=== PATIENT | female | born 1945 | race Caucasian/White ===

== ENCOUNTER 2018-05-11 02:20 | Inpatient (IN) | payer MEDICARE, OTHER ==
[~2018-05-11] VITALS: Ht 170.2 cm; Wt 54.6 kg
[2018-05-11 03:58] VITALS: BP 162/85
[2018-05-11] MEDS ORDERED: ACETAMINOPHEN 325 MG TABLET PO PRN (04:15)
[2018-05-11] MEDS ORDERED: MAG HYDROX/AL HYDROX/SIMETH 30 ML ORAL.SUSP PO PRN (04:15)
[2018-05-11] MEDS ORDERED: METHYL SALICYLATE/MENTHOL TOPICAL OINTMENT 29GM TUBE. TP PRN (04:15)
[2018-05-11] MEDS ORDERED: MAGNESIUM HYDROXIDE 2,400 MG/30 ML ORAL.SUSP. PO PRN (04:15)
[2018-05-11] MEDS ORDERED: ONDA4TAB7 PO (04:32)
[2018-05-11] MEDS ORDERED: LOPE2CAP88 PO (04:32)
[2018-05-11] MEDS ORDERED: ACET325T9 PO (04:32)
[2018-05-11] MEDS ORDERED: LACT1CAP24 PO (04:32)
[2018-05-11] MEDS ORDERED: DICY20TA3 PO (04:32)
[2018-05-11] MEDS ORDERED: FLUT12HF2 IH (04:32)
[2018-05-11] MEDS ORDERED: CALC625T PO (04:32)
[2018-05-11] MEDS ORDERED: MEMA21CA PO (04:32)
[2018-05-11] MEDS ORDERED: POTA20TA4 PO (04:32)
[2018-05-11] MEDS ORDERED: OMEP20CA9 PO (04:32)
[2018-05-11] MEDS ORDERED: GABA-585 PO (04:32)
[2018-05-11] MEDS ORDERED: HYDR26CR PR (04:32)
[2018-05-11] MEDS ORDERED: AMLO5TAB2 PO (04:32)
--- NOTE | 2018-05-11 05:59 | EKG ---
[address] [address] Test Date: 2018-05-11 Test Time: 05:55:17 Pat Name: MALKA POPE Department: Room: [address] [place] [address] Gender: F Quantitative Manager: LOGAN : 1945 Requested By: RHODA ORTA Order Number: [id number] Reading MD: Shawn Velásquez MD Measurements Intervals [place] Rate: 88 P: 90 FL: 166 QRS: -39 QRSD: 84 T: 70 QT: 358 QTc: 437 Interpretive Statements SINUS RHYTHM ABNORMAL LEFT AXIS DEVIATION PROBABLE SEPTAL INFARCT Electronically Signed On 05-13-2018 13:04:44 CDT by Shawn Velásquez MD
[2018-05-11] MEDS ORDERED: LOPERAMIDE 2 MG CAPSULE PO PRN (07:30)
[2018-05-11] MEDS ORDERED: HYDROCORTISONE 2.5% RECTAL CREAM 30GM TUBE. RC PRN (07:30)
[2018-05-11] MEDS ORDERED: ONDANSETRON ODT 4 MG TAB.RAPDIS PO PRN (07:30)
[2018-05-11 07:42] LABS: BASO % 0 % (0-3); EOS # 0.2 x10^3/uL (0.0-0.7); EOS % 3 % (0-3); HEMATOCRIT 38.5 % (36.0-47.0); HEMOGLOBIN 12.7 g/dL (12.0-15.5); LYMPH # 0.7 x10^3/uL (1.0-4.8); LYMPH % 12 % (24-48); MEAN CORPUSCULAR HEMOGLOBIN 29 pg (25-35); MEAN CORPUSCULAR HGB CONC 33 g/dL (31-37); MEAN CORPUSCULAR VOLUME 87 fL (79-100); MONO # 0.4 x10^3/uL (0.0-1.1); MONO % 7 % (0-9); NEUT % 79 % (31-73); PLATELET COUNT 192 x10^3/uL (140-400); RED BLOOD COUNT 4.41 x10^6/uL (3.50-5.40); RED CELL DISTRIBUTION WIDTH 16.1 % (11.5-14.5); WHITE BLOOD COUNT 6.3 x10^3/uL (4.0-11.0)
[2018-05-11] MEDS: DICYCLOMINE HCL 20 MG TABLET PO SCH ×4 (07:48→20:04)
[2018-05-11] MEDS: LACTOBACILLUS RHAMNOSUS GG 1 CAPSULE. PO SCH ×2 (07:48→20:04)
[2018-05-11] MEDS: GABAPENTIN 100 MG CAPSULE. PO SCH ×3 (07:49→20:04)
[2018-05-11] MEDS: PANTOPRAZOLE 40 MG TABLET. PO SCH (07:49)
[2018-05-11] MEDS: amLODIPine BESYLATE 5 MG TABLET PO SCH (07:49)
[2018-05-11] MEDS: POTASSIUM CHLORIDE 20 MEQ TABLET.ER. PO SCH ×2 (07:50→16:34)
[2018-05-11] MEDS: MEMANTINE 5 MG TABLET. PO SCH ×3 (07:51→20:04)
[2018-05-11] MEDS: ALBUTEROL SULFATE 2.5 MG/3 ML NEBU. NEB SCH ×4 (08:00→20:08)
[2018-05-11] MEDS ORDERED: ACETAMINOPHEN 325 MG TABLET PO SCH (08:00)
[2018-05-11 08:22] LABS: ALBUMIN 3.2 g/dL (3.4-5.0); ALBUMIN/GLOBULIN RATIO 0.8 (1.0-1.7); CALCIUM 9.1 mg/dL (8.5-10.1); CREATININE 0.6 mg/dL (0.6-1.0); GFR 97.5; POTASSIUM 3.7 mmol/L (3.5-5.1); TOTAL BILIRUBIN 0.9 mg/dL (0.2-1.0); TOTAL PROTEIN 7.1 g/dL (6.4-8.2)
[2018-05-11] MEDS ORDERED: SALMETEROL IH SCH (09:00)
[2018-05-11] MEDS ORDERED: FLUTICASONE IH SCH (09:00)
[2018-05-11] MEDS: BUDESONIDE 0.5 MG/2 ML NEBU NEB SCH ×2 (10:40→20:08)
[2018-05-11 11:17] LABS: THYROID STIM HORMONE (TSH) 1.827 uIU/mL (0.358-3.740)
[2018-05-11 13:09] LABS: BACTERIA,URINE FEW /HPF (0-FEW); BILIRUBIN,URINE NEG (NEG); CLARITY,URINE CLOUDY; COLOR,URINE YELLOW; GLUCOSE,URINE NEG (NEG); NITRITE,URINE NEG (NEG); SQUAMOUS EPITHELIAL CELL,UR FEW /LPF; UROBILINOGEN,URINE 1 mg/dL (0.2 mg/dL); WBC,URINE >40 /HPF (0-4)
[2018-05-11 14:07] LABS: HEMOGLOBIN A1C 5.1 % (4.8-5.6); THYROXINE 8.5 ug/dL (4.5-12.0)
--- NOTE | 2018-05-11 14:37 | CONS ---
DATE OF CONSULTATION: 05/11/2018 REASON FOR CONSULTATION: Medical management. HISTORY OF PRESENT ILLNESS: The patient is a 73-year-old female patient, resident at [facility], who apparently was evaluated in the Emergency Room of [facility] on account of yelling and threatening, has suicidal ideation and thinks she is a prostitute. Had a trial of Xanax done for the last 15 days, did not work. She required one-on-one sitter and was basically admitted [facility] for inpatient psychiatric stabilization. She was treated actually for pneumonia and UTI recently. PAST MEDICAL HISTORY: Significant for irritable bowel syndrome, hypertension. She has postpolio syndrome with right-sided hemiplegia, marked muscle wasting and atrophy. She is also known to have COPD. PAST SURGICAL HISTORY: Significant for plastic surgery to her right lower extremity which was shorter because of polio and she has also total abdominal hysterectomy and bilateral salpingo-oophorectomy. ALLERGIES: She has no known drug allergies. MEDICATIONS: She is currently on following medications: She is on dicyclomine 20 mg 4 times a day, amlodipine 5 mg once a day, Tylenol 650 mg every 4 hours, gabapentin 200 mg 3 times a day, Namenda XR 21 mg daily, potassium chloride 20 mEq twice a day, Advair Diskus twice a day, lactobacillus acidophilus 1 tablet twice a day, loperamide 2 mg every 4 hours as needed, calcium polycarbophil for FiberCon 625 mg at bedtime, ondansetron for Zofran 4 mg every 6 hours, omeprazole 20 mg daily, hydrocortisone cream Preparation H applied topically 4 times a day for hemorrhoids. FAMILY HISTORY: Unremarkable. SOCIAL HISTORY: She is , has 1 son. She quit smoking about a year ago. She smoked a pack a day. Does not drink alcohol or use any recreational drugs. PHYSICAL EXAMINATION: GENERAL: When I examined her, she looked pale, cachectic, but no jaundice, cyanosis, or thyromegaly. No jugular venous distension. No lower limb edema. VITAL SIGNS: Her heart rate was 84, blood pressure was 162/85, temperature was 97.7, respiratory rate was 18, and oxygen saturation was 97% on 1 liter of oxygen. HEAD, EYES, EARS, NOSE, AND THROAT: Showed normocephalic, atraumatic. NECK: Supple. HEART: Showed normal first and second heart sounds with no gallop, rub, or murmur. CHEST: Clear to auscultation. No crepitation or rhonchi. ABDOMEN: Mildly distended, soft, nontender. No guarding or rigidity. No organomegaly. All hernial orifices intact. Bowel sounds normal. NEUROLOGIC: She is awake, alert, responding appropriately. Her cranial nerves are intact. She moves upper extremities to much good extent than lower extremities. She is mostly wheelchair bound. LABORATORY DATA: Her lab work shows a white cell count of 6300, hemoglobin 13, hematocrit 39, MCV 87, and platelet count of 192,000. His serum sodium was 143, potassium 3.7, chloride 105, bicarbonate 34, anion gap of 4, BUN 15, creatinine 0.6, estimated GFR was 97 mL per minute. His glucose was 91, calcium was 9.1, magnesium 2. Her serum iron was 78, TIBC was 296. Iron percent saturation was 26. Total bilirubin, AST, ALT, alkaline phosphatase are normal. Total protein 7.3, albumin 3.1. Her triglycerides were 78, total cholesterol was 186, LDL was 109, VLDL was 15, and HDL cholesterol was 62, the ratio was 3 and her TSH was 1.827. IMPRESSION: In summary, this is a 73-year-old female patient who was [facility] on account of yelling, threatening, having suicidal ideation, thinks that she is a prostitute. She has failed outpatient psychiatric treatment and she required one-on-one sitter there. So she was admitted for inpatient psychiatric stabilization. Her past medical history is significant for irritable bowel syndrome, hypertension, postpolio syndrome with right-sided muscle weakness and wasting. She has also had COPD and she is oxygen dependent. Medically, the patient seems to be generally stable. All her vital signs are within acceptable range and all her labs are also within normal range. I will continue all this medication. I will follow all her other labs that are still pending at the time of this dictation and make any necessary recommendation. Thank you, Dr. Encarnacion, for allowing me to participate in the care of this patient. BLUE MYRICK MD DR: LUCI/vanessa JOB#: [id number] / [id number]
[2018-05-11 16:08] VITALS: BP 131/82
--- NOTE | 2018-05-11 19:17 | HP ---
ADMIT DATE: 05/11/2018 This note covers the elements not covered in my initial note, 05/11/2018. She is referred by her primary care physician is Dr. Conner Taylor at the skilled nursing. IDENTIFYING DATA: The patient is admitted voluntarily by her legal guardian, Millie Moya. The patient is a 73-year-old female referred to us from [facility] Emergency Room where she presented from [facility] on account of worsening symptoms of depression with suicidal ideation and plan about slitting her wrists. She was also wanting someone to bash her head in. She was yelling, psychotic, extremely confused. She believes she is a prostitute and has been refusing to go to bed. CHIEF COMPLAINT: "I have been here 1 week. There is nothing wrong with me." HISTORY OF PRESENT ILLNESS: The patient has a history of dementia, Alzheimer's vascular type. She has been residing at [facility] for some time, but over the past several days, she has been increasingly agitated, yelling, threatening, suicidal and quite psychotic. She has had sleep and appetite changes. No active homicidal ideation. No clear history of bipolar disorder. PAST PSYCHIATRIC HISTORY: Positive for progressive memory deficits, mood swings, psychotic symptoms. PAST MEDICAL HISTORY: Hypertension, abdominal aortic aneurysm, hemiplegia, status post polio, peripheral vascular disease, SIADH, COPD, generalized anxiety disorder, muscle wasting and atrophy, GERD. ACCU-CHEKS: None. DIET: Regular. Takes medications whole, ambulates wheelchair. DRUG ALLERGIES: Negative. CODE STATUS: Full code. CURRENT PSYCHOTROPICS: Namenda XR 21 mg daily, Zyprexa p.r.n. FAMILY HISTORY: Noncontributory. SOCIAL HISTORY: No history of alcohol, drug abuse, physical, sexual or elder abuse. She is not known to be a perpetrator. 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 MENTAL STATUS EXAMINATION: Insight, judgment, recent and remote memory, attention, concentration, fund of knowledge poor, consistent with her diagnosis. REACTION TO HOSPITALIZATION: The patient accepting of it. ASSETS: Supportive living at the skilled nursing, supportive guardian. 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 PLAN: Admit to geropsychiatry unit at [facility]. I will see the patient daily individually from a psychiatric standpoint, medical followup per Dr. Armas/Dr. Dennis. We will go ahead and add trazodone 50 mg at bedtime as needed for insomnia, Zoloft 25 mg a day. Observe baseline, change Namenda to 10 mg twice a day. Make further adjustments post-baseline assessment. MAN Lyla ORTA MD DR: WARREN/vanessa JOB#: [id number] / [id number]
[2018-05-11] MEDS: CALCIUM POLYCARBOPHIL 625 MG TABLET PO SCH (20:06)
[2018-05-11] MEDS: ACETAMINOPHEN 325 MG TABLET PO PRN (21:30)
--- NOTE | 2018-05-11 22:24 | PDOC ---
Exam Note: Aidan Note: Please also refer to the separate dictated note~for this date of service dictated separately.~Patient seen individually. Discussed the patient with Nursing staff reviewed the chart.~Reviewed interim history and current functioning. Reviewed vital signs,~Labs/ Radiology~and current medications noted below. Continue current treatment with the changes noted in the dictated addendum note Assessment: Vital Signs: Vital Signs Date Time Temp Pulse Resp B/P (MAP) Pulse Ox O2 Delivery O2 Flow Rate FiO2 05/11/18 20:14 99 Nasal Cannula 2.0 05/11/18 16:08 97.3 95 18 131/82 (98) I&O Intake and Output 05/11/18 06:59 # Voids 1 Labs: Laboratory Tests Test 05/11/18 07:00 05/11/18 12:50 White Blood Count 6.3 x10^3/uL (4.0-11.0) Red Blood Count 4.41 x10^6/uL (3.50-5.40) Hemoglobin 12.7 g/dL (12.0-15.5) Hematocrit 38.5 % (36.0-47.0) Mean Corpuscular Volume 87 fL (79-100) Mean Corpuscular Hemoglobin 29 pg (25-35) Mean Corpuscular Hemoglobin Concent 33 g/dL (31-37) Red Cell Distribution Width 16.1 % (11.5-14.5) H Platelet Count 192 x10^3/uL (140-400) Neutrophils (%) (Auto) 79 % (31-73) H Lymphocytes (%) (Auto) 12 % (24-48) L Monocytes (%) (Auto) 7 % (0-9) Eosinophils (%) (Auto) 3 % (0-3) Basophils (%) (Auto) 0 % (0-3) Neutrophils # (Auto) 5.0 x10^3uL (1.8-7.7) Lymphocytes # (Auto) 0.7 x10^3/uL (1.0-4.8) L Monocytes # (Auto) 0.4 x10^3/uL (0.0-1.1) Eosinophils # (Auto) 0.2 x10^3/uL (0.0-0.7) Basophils # (Auto) 0.0 x10^3/uL (0.0-0.2) Sodium Level 143 mmol/L (136-145) Potassium Level 3.7 mmol/L (3.5-5.1) Chloride Level 105 mmol/L (98-107) Carbon Dioxide Level 34 mmol/L (21-32) H Anion Gap 4 (6-14) L Blood Urea Nitrogen 15 mg/dL (7-20) Creatinine 0.6 mg/dL (0.6-1.0) Estimated GFR (Cockcroft-Gault) 97.5 BUN/Creatinine Ratio 25 (6-20) H Glucose Level 91 mg/dL (70-99) Hemoglobin A1c 5.1 % (4.8-5.6) Calcium Level 9.1 mg/dL (8.5-10.1) Magnesium Level 2.0 mg/dL (1.8-2.4) Iron Level 78 ug/dL (50-170) Total Iron Binding Capacity 296 ug/dL (250-450) Iron Saturation 26 % (15-34) Total Bilirubin 0.9 mg/dL (0.2-1.0) Aspartate Amino Transferase (AST) 17 U/L (15-37) Alanine Aminotransferase (ALT) 12 U/L (14-59) L Alkaline Phosphatase 120 U/L (46-116) H Total Protein 7.1 g/dL (6.4-8.2) Albumin 3.2 g/dL (3.4-5.0) L Albumin/Globulin Ratio 0.8 (1.0-1.7) L Triglycerides Level 78 mg/dL (0-150) Cholesterol Level 186 mg/dL (0-200) LDL Cholesterol, Calculated 109 mg/dL (0-100) H VLDL Cholesterol, Calculated 15 mg/dL (0-40) Non-HDL Cholesterol Calculated 124 mg/dL (0-129) HDL Cholesterol 62 mg/dL (40-60) H Cholesterol/HDL Ratio 3.0 Thyroid Stimulating Hormone (TSH) 1.827 uIU/mL (0.358-3.740) Thyroxine (T4) 8.5 ug/dL (4.5-12.0) Total Triiodothyronine (TT3) 91 ng/dL (71-180) Urine Collection Type Unknown Urine Color Yellow Urine Clarity Cloudy Urine pH 7.0 Urine Specific Tiff 1.015 Urine Protein Neg (NEG-TRACE) Urine Glucose (UA) Neg mg/dL (NEG) Urine Ketones (Stick) 15 mg/dL (NEG) Urine Blood Trace (NEG) Urine Nitrite Neg (NEG) Urine Bilirubin Neg (NEG) Urine Urobilinogen Dipstick 1 mg/dL (0.2 mg/dL) Urine Leukocyte Esterase Large (NEG) Urine RBC 3-5 /HPF (0-2) Urine WBC >40 /HPF (0-4) Urine Squamous Epithelial Cells Few /LPF Urine Transitional Epithelial Cells Few /LPF Urine Bacteria Few /HPF (0-FEW) Urine Mucus Slight /LPF Current Medications: Meds: Current Medications Acetaminophen (Tylenol) 650 mg PRN Q6HRS PRN PO PAIN / TEMP; Start 05/11/18 at 04:15; Stop 05/11/18 at 07:18; Status DC Multi-Ingredient Ointment (Analgesic [place]) 1 shweta PRN QID PRN TP MUSCLE PAIN; Start 05/11/18 at 04:15 Al Hydroxide/Mg Hydroxide (Mylanta Plus Xs) 15 ml PRN AFTMEALHC PRN PO DYSPEPSIA; Start 05/11/18 at 04:15 Magnesium Hydroxide (Milk Of Magnesia) 2,400 mg PRN QHS PRN PO CONSTIPATION; Start 05/11/18 at 04:15 Olanzapine (ZyPREXA ZYDIS) 2.5 mg PRN Q2HR PRN PO PSYCHOSIS; Start 05/11/18 at 04:45 Memantine (Namenda) 5 mg TID PO Last administered on 05/11/18at 20:04; Start at 09:00 Acetaminophen (Tylenol) 650 mg Q4HRS PO ; Start 05/11/18 at 08:00; Stop at 08:00; Status DC Calcium Polycarbophil (Fibercon) 625 mg QHS PO Last administered on 05/11/18at 20:06; Start 05/11/18 at 21:00 Gabapentin (Neurontin) 200 mg TID PO Last administered on 05/11/18at 20:04; Start 05/11/18 at 09:00 Potassium Chloride (Klor-Con) 20 meq BIDWMEALS PO Last administered on at 16:34; Start 05/11/18 at 08:00 Amlodipine Besylate (Norvasc) 5 mg DAILY PO Last administered on 05/11/18 07: 49; Start 05/11/18 at 09:00 Dicyclomine HCl (Bentyl) 20 mg QID PO Last administered on 05/11/18at 20:04; Start 05/11/18 at 09:00 Non-Formulary Medication (Fluticasone/ Salmeterol (Advair Hfa 115-21 Mcg Inhaler )) 1 puff BID IH ; Start 05/11/18 at 09:00; Stop 05/11/18 at 09:00; Status DC Hydrocortisone (Proctosol-Hc) 1 shweta PRN QID PRN RC RECTAL PAIN; Start 05/11/18 at 07:30 Lactobacillus Rhamnosus (Culturelle) 1 cap BID PO Last administered on at 20:04; Start 05/11/18 at 09:00 Loperamide HCl (Imodium) 2 mg PRN Q4HRS PRN PO DIARRHEA; Start 05/11/18 at 07: 30 Pantoprazole Sodium (Protonix) 40 mg DAILYAC PO Last administered on 05/11/18at 07:49; Start 05/11/18 at 07:30 Ondansetron HCl (Zofran Odt) 4 mg PRN Q6HRS PRN PO NAUSEA/VOMITING; Start 05/11 at 07:30 Acetaminophen (Tylenol) 650 mg PRN Q4HRS PRN PO PAIN / TEMP Last administered on 05/11/18at 21:30; Start 05/11/18 at 07:30 Albuterol Sulfate (Ventolin) 2.5 mg RTQID NEB Last administered on 05/11/18at 20 :08; Start 05/11/18 at 08:00 Budesonide (Pulmicort) 0.5 mg RTBID NEB Last administered on 05/11/18at 20:08; Start 05/11/18 at 08:00 Trazodone HCl (Desyrel) 50 mg PRN QHS PRN PO INSOMNIA; Start 05/11/18 at 18:00 Sertraline HCl (Zoloft) 25 mg DAILY PO ; Start 05/12/18 at 09:00 Active Scripts Active Reported Preparation H (Hydrocortisone) 26 Gm Cream..g. 1 Applic [place] PRN QID PRN Dicyclomine Hcl 20 Mg Tablet 20 Mg PO QID Zofran (Ondansetron Hcl) 4 Mg Tablet 4 Mg PO PRN Q6HRS PRN Imodium A-D (Loperamide HCl) 2 Mg Capsule 2 Mg PO PRN Q4HRS PRN Tylenol (Acetaminophen) 325 Mg Tablet 650 Mg PO Q4HRS Fibercon (Calcium Polycarbophil) 625 Mg Tablet 625 Mg PO QHS Namenda Xr (Memantine Hcl) 21 Mg Cap.spr.24 21 Mg PO DAILY Acidophilus Lactobacillus (Lactobacillus Acidophilus) 1 Each Capsule 1 Each PO BID Omeprazole 20 Mg Capsule.dr 20 Mg PO DAILY Advair Hfa 115-21 Mcg Inhaler (Fluticasone/Salmeterol) 12 Gm Hfa.aer.ad 1 Puff IH BID Klor-Con M20 (Potassium Chloride) 20 Meq Tab.er.prt 20 Meq PO BID Gabapentin 100 Mg Capsule 200 Mg PO TID Amlodipine Besylate 5 Mg Tablet 5 Mg PO DAILY I have reviewed the current psychotropics carefully including drug interactions. Risk benefit ratio favors no change other than as noted in my dictated progress note. Diagnosis: Problems: (1) Anxiety disorder (2) Dementia in Alzheimer's disease with delusions (3) Dementia in Alzheimer's disease with depression (4) Dementia, vascular, with delusions (5) Dementia, vascular, with depression (6) Impulse control disorder RHODA ORTA MD May 11, 2018 22:24
[2018-05-12 06:01] VITALS: BP 141/66
[2018-05-12] MEDS: ALBUTEROL SULFATE 2.5 MG/3 ML NEBU. NEB SCH ×4 (06:05→20:28)
[2018-05-12] MEDS: PANTOPRAZOLE 40 MG TABLET. PO SCH (08:01)
[2018-05-12] MEDS: GABAPENTIN 100 MG CAPSULE. PO SCH ×3 (08:02→20:04)
[2018-05-12] MEDS: MEMANTINE 5 MG TABLET. PO SCH ×3 (08:02→20:04)
[2018-05-12] MEDS: POTASSIUM CHLORIDE 20 MEQ TABLET.ER. PO SCH ×2 (08:02→17:12)
[2018-05-12] MEDS: LACTOBACILLUS RHAMNOSUS GG 1 CAPSULE. PO SCH ×2 (08:02→20:04)
[2018-05-12] MEDS: DICYCLOMINE HCL 20 MG TABLET PO SCH ×4 (08:02→20:04)
[2018-05-12] MEDS: amLODIPine BESYLATE 5 MG TABLET PO SCH (08:03)
[2018-05-12] MEDS: SERTRALINE 25 MG TABLET. PO SCH (08:04)
[2018-05-12] MEDS: ACETAMINOPHEN 325 MG TABLET PO PRN (11:21)
[2018-05-12] MEDS: BUDESONIDE 0.5 MG/2 ML NEBU NEB SCH ×2 (11:45→20:28)
[2018-05-12 16:16] VITALS: BP 133/73
[2018-05-12] MEDS: CALCIUM POLYCARBOPHIL 625 MG TABLET PO SCH (20:04)
--- NOTE | 2018-05-12 20:56 | PDOC ---
Exam Note: Aidan Note: Please also refer to the separate dictated note~for this date of service dictated separately.~Patient seen individually. Discussed the patient with Nursing staff reviewed the chart.~Reviewed interim history and current functioning. Reviewed vital signs,~Labs/ Radiology~and current medications noted below. Continue current treatment with the changes noted in the dictated addendum note Assessment: Vital Signs: Vital Signs Date Time Temp Pulse Resp B/P (MAP) Pulse Ox O2 Delivery O2 Flow Rate FiO2 05/12/18 20:30 84 Room Air 05/12/18 16:20 2.0 05/12/18 16:16 98.3 50 16 133/73 (93) I&O Intake and Output 05/12/18 07:00 Intake Total 90 ml Balance 90 ml Intake Oral 90 ml # Voids 1 # Bowel Movements 2 Current Medications: Meds: Current Medications Acetaminophen (Tylenol) 650 mg PRN Q6HRS PRN PO PAIN / TEMP; Start 05/11/18 at 04:15; Stop 05/11/18 at 07:18; Status DC Multi-Ingredient Ointment (Analgesic [place]) 1 shweta PRN QID PRN TP MUSCLE PAIN; Start 05/11/18 at 04:15 Al Hydroxide/Mg Hydroxide (Mylanta Plus Xs) 15 ml PRN AFTMEALHC PRN PO DYSPEPSIA; Start 05/11/18 at 04:15 Magnesium Hydroxide (Milk Of Magnesia) 2,400 mg PRN QHS PRN PO CONSTIPATION; Start 05/11/18 at 04:15 Olanzapine (ZyPREXA ZYDIS) 2.5 mg PRN Q2HR PRN PO PSYCHOSIS; Start 05/11/18 at 04:45 Memantine (Namenda) 5 mg TID PO Last administered on 05/12/18at 20:04; Start at 09:00 Acetaminophen (Tylenol) 650 mg Q4HRS PO ; Start 05/11/18 at 08:00; Stop at 08:00; Status DC Calcium Polycarbophil (Fibercon) 625 mg QHS PO Last administered on 05/12/18at 20 :04; Start 05/11/18 at 21:00 Gabapentin (Neurontin) 200 mg TID PO Last administered on 05/12/18at 20:04; Start 05/11/18 at 09:00 Potassium Chloride (Klor-Con) 20 meq BIDWMEALS PO Last administered on at 17:12; Start 05/11/18 at 08:00 Amlodipine Besylate (Norvasc) 5 mg DAILY PO Last administered on 05/12/18at 08:03 ; Start 05/11/18 at 09:00 Dicyclomine HCl (Bentyl) 20 mg QID PO Last administered on 05/12/18at 20:04; Start 05/11/18 at 09:00 Non-Formulary Medication (Fluticasone/ Salmeterol (Advair Hfa 115-21 Mcg Inhaler )) 1 puff BID IH ; Start 05/11/18 at 09:00; Stop 05/11/18 at 09:00; Status DC Hydrocortisone (Proctosol-Hc) 1 shweta PRN QID PRN RC RECTAL PAIN; Start 05/11/18 at 07:30 Lactobacillus Rhamnosus (Culturelle) 1 cap BID PO Last administered on at 20:04; Start 05/11/18 at 09:00 Loperamide HCl (Imodium) 2 mg PRN Q4HRS PRN PO DIARRHEA; Start 05/11/18 at 07: 30 Pantoprazole Sodium (Protonix) 40 mg DAILYAC PO Last administered on 05/12/18at 08:01; Start 05/11/18 at 07:30 Ondansetron HCl (Zofran Odt) 4 mg PRN Q6HRS PRN PO NAUSEA/VOMITING; Start 05/11 at 07:30 Acetaminophen (Tylenol) 650 mg PRN Q4HRS PRN PO PAIN / TEMP Last administered on 05/12/18at 11:21; Start 05/11/18 at 07:30 Albuterol Sulfate (Ventolin) 2.5 mg RTQID NEB Last administered on 05/12/18 20: 28; Start 05/11/18 at 08:00 Budesonide (Pulmicort) 0.5 mg RTBID NEB Last administered on 05/12/18at 20:28; Start 05/11/18 at 08:00 Trazodone HCl (Desyrel) 50 mg PRN QHS PRN PO INSOMNIA; Start 05/11/18 at 18:00 Sertraline HCl (Zoloft) 25 mg DAILY PO Last administered on 05/12/18at 08:04; Start 05/12/18 at 09:00 Active Scripts Active Reported Preparation H (Hydrocortisone) 26 Gm Cream..g. 1 Applic [place] PRN QID PRN Dicyclomine Hcl 20 Mg Tablet 20 Mg PO QID Zofran (Ondansetron Hcl) 4 Mg Tablet 4 Mg PO PRN Q6HRS PRN Imodium A-D (Loperamide HCl) 2 Mg Capsule 2 Mg PO PRN Q4HRS PRN Tylenol (Acetaminophen) 325 Mg Tablet 650 Mg PO Q4HRS Fibercon (Calcium Polycarbophil) 625 Mg Tablet 625 Mg PO QHS Namenda Xr (Memantine Hcl) 21 Mg Cap.spr.24 21 Mg PO DAILY Acidophilus Lactobacillus (Lactobacillus Acidophilus) 1 Each Capsule 1 Each PO BID Omeprazole 20 Mg Capsule.dr 20 Mg PO DAILY Advair Hfa 115-21 Mcg Inhaler (Fluticasone/Salmeterol) 12 Gm Hfa.aer.ad 1 Puff IH BID Klor-Con M20 (Potassium Chloride) 20 Meq Tab.er.prt 20 Meq PO BID Gabapentin 100 Mg Capsule 200 Mg PO TID Amlodipine Besylate 5 Mg Tablet 5 Mg PO DAILY I have reviewed the current psychotropics carefully including drug interactions. Risk benefit ratio favors no change other than as noted in my dictated progress note. Diagnosis: Problems: (1) Anxiety disorder (2) Dementia in Alzheimer's disease with delusions (3) Dementia in Alzheimer's disease with depression (4) Dementia, vascular, with delusions (5) Dementia, vascular, with depression (6) Impulse control disorder RHODA ORTA MD May 12, 2018 20:56
--- NOTE | 2018-05-13 00:01 | PN ---
DATE: 05/12/2018 This note covers the elements not covered in my initial note, 05/12/2018. SUBJECTIVE: The patient was seen individually the evening of 05/12/2018. The patient slept 7-1/4 hours previous evening. The patient remains confused, but otherwise cooperative, compliant. REVIEW OF SYSTEMS: Ambulation impaired, in wheelchair. No CV, , pulmonary, eye, ENT system symptoms on review. Reliability poor. MENTAL STATUS EXAM: Oriented to herself. Insight, judgment, recent, and remote memory, attention, concentration, fund of knowledge poor, consistent with her diagnosis as mentioned in my initial note. PLAN: Continue psychotropics from initial note including Zoloft and we will adjust this gradually. Consider BuSpar for anxiety. MAN Lyla ORTA MD DR: WARREN/vanessa JOB#: [id number] / [id number]
[2018-05-13] MEDS: traZODone 50 MG TABLET. PO PRN ×2 (00:35→23:42)
[2018-05-13] MEDS: ALBUTEROL SULFATE 2.5 MG/3 ML NEBU. NEB SCH ×4 (05:41→21:31)
[2018-05-13 06:17] VITALS: BP 129/81
[2018-05-13] MEDS: PANTOPRAZOLE 40 MG TABLET. PO SCH (07:54)
[2018-05-13] MEDS: MEMANTINE 5 MG TABLET. PO SCH ×2 (07:55→13:21)
[2018-05-13] MEDS: LACTOBACILLUS RHAMNOSUS GG 1 CAPSULE. PO SCH ×2 (07:55→19:45)
[2018-05-13] MEDS: DICYCLOMINE HCL 20 MG TABLET PO SCH ×4 (07:55→19:45)
[2018-05-13] MEDS: POTASSIUM CHLORIDE 20 MEQ TABLET.ER. PO SCH ×2 (07:55→16:56)
[2018-05-13] MEDS: GABAPENTIN 100 MG CAPSULE. PO SCH ×3 (08:04→19:44)
[2018-05-13] MEDS: amLODIPine BESYLATE 5 MG TABLET PO SCH (08:05)
[2018-05-13] MEDS: SERTRALINE 25 MG TABLET. PO SCH (08:05)
[2018-05-13] MEDS: BUDESONIDE 0.5 MG/2 ML NEBU NEB SCH ×2 (12:00→21:31)
[2018-05-13 15:58] VITALS: BP 124/70
[2018-05-13] MEDS: CALCIUM POLYCARBOPHIL 625 MG TABLET PO SCH (19:45)
[2018-05-13] MEDS: MEMANTINE 10 MG TABLET. PO SCH (19:46)
--- NOTE | 2018-05-13 20:57 | PDOC ---
Exam Note: Aidan Note: Please also refer to the separate dictated note~for this date of service dictated separately.~Patient seen individually. Discussed the patient with Nursing staff reviewed the chart.~Reviewed interim history and current functioning. Reviewed vital signs,~Labs/ Radiology~and current medications noted below. Continue current treatment with the changes noted in the dictated addendum note Assessment: Vital Signs: Vital Signs Date Time Temp Pulse Resp B/P (MAP) Pulse Ox O2 Delivery O2 Flow Rate FiO2 05/13/18 17:12 94 Nasal Cannula 2.0 05/13/18 15:58 97.9 96 22 124/70 (88) I&O Intake and Output 05/13/18 06:59 Intake Total 720 ml Balance 720 ml Intake Oral 720 ml # Voids 1 # Bowel Movements 2 Current Medications: Meds: Current Medications Acetaminophen (Tylenol) 650 mg PRN Q6HRS PRN PO PAIN / TEMP; Start 05/11/18 at 04:15; Stop 05/11/18 at 07:18; Status DC Multi-Ingredient Ointment (Analgesic [place]) 1 shweta PRN QID PRN TP MUSCLE PAIN; Start 05/11/18 at 04:15 Al Hydroxide/Mg Hydroxide (Mylanta Plus Xs) 15 ml PRN AFTMEALHC PRN PO DYSPEPSIA; Start 05/11/18 at 04:15 Magnesium Hydroxide (Milk Of Magnesia) 2,400 mg PRN QHS PRN PO CONSTIPATION; Start 05/11/18 at 04:15 Olanzapine (ZyPREXA ZYDIS) 2.5 mg PRN Q2HR PRN PO PSYCHOSIS Last administered on 05/13/18at 15:23; Start 05/11/18 at 04:45 Memantine (Namenda) 5 mg TID PO Last administered on 05/13/18at 13:21; Start at 09:00; Stop 05/13/18 at 18:34; Status DC Acetaminophen (Tylenol) 650 mg Q4HRS PO ; Start 05/11/18 at 08:00; Stop at 08:00; Status DC Calcium Polycarbophil (Fibercon) 625 mg QHS PO Last administered on 05/13/18at 19 :45; Start 05/11/18 at 21:00 Gabapentin (Neurontin) 200 mg TID PO Last administered on 05/13/18 19:44; Start 05/11/18 at 09:00 Potassium Chloride (Klor-Con) 20 meq BIDWMEALS PO Last administered on 16:56; Start 05/11/18 at 08:00 Amlodipine Besylate (Norvasc) 5 mg DAILY PO Last administered on 05/13/18 08:05 ; Start 05/11/18 at 09:00 Dicyclomine HCl (Bentyl) 20 mg QID PO Last administered on 05/13/18 19:45; Start 05/11/18 at 09:00 Non-Formulary Medication (Fluticasone/ Salmeterol (Advair Hfa 115-21 Mcg Inhaler )) 1 puff BID IH ; Start 05/11/18 at 09:00; Stop 05/11/18 at 09:00; Status DC Hydrocortisone (Proctosol-Hc) 1 shweta PRN QID PRN RC RECTAL PAIN; Start 05/11/18 at 07:30 Lactobacillus Rhamnosus (Culturelle) 1 cap BID PO Last administered on 19:45; Start 05/11/18 at 09:00 Loperamide HCl (Imodium) 2 mg PRN Q4HRS PRN PO DIARRHEA; Start 05/11/18 at 07: 30 Pantoprazole Sodium (Protonix) 40 mg DAILYAC PO Last administered on 05/13/18 07:54; Start 05/11/18 at 07:30 Ondansetron HCl (Zofran Odt) 4 mg PRN Q6HRS PRN PO NAUSEA/VOMITING; Start 05/11 at 07:30 Acetaminophen (Tylenol) 650 mg PRN Q4HRS PRN PO PAIN / TEMP Last administered on 05/12/18 11:21; Start 05/11/18 at 07:30 Albuterol Sulfate (Ventolin) 2.5 mg RTQID NEB Last administered on 05/13/18 17: 12; Start 05/11/18 at 08:00 Budesonide (Pulmicort) 0.5 mg RTBID NEB Last administered on 05/13/18 12:00; Start 05/11/18 at 08:00 Trazodone HCl (Desyrel) 50 mg PRN QHS PRN PO INSOMNIA Last administered on at 00:35; Start 05/11/18 at 18:00 Sertraline HCl (Zoloft) 25 mg DAILY PO Last administered on 05/13/18at 08:05; Start 05/12/18 at 09:00 Memantine (Namenda) 10 mg BID PO Last administered on 05/13/18at 19:46; Start 05/13/18 at 21:00 Quetiapine Fumarate (SEROquel) 12.5 mg 0900,1700 PO ; Start 05/14/18 at 09:00 Active Scripts Active Reported Preparation H (Hydrocortisone) 26 Gm Cream..g. 1 Applic [place] PRN QID PRN Dicyclomine Hcl 20 Mg Tablet 20 Mg PO QID Zofran (Ondansetron Hcl) 4 Mg Tablet 4 Mg PO PRN Q6HRS PRN Imodium A-D (Loperamide HCl) 2 Mg Capsule 2 Mg PO PRN Q4HRS PRN Tylenol (Acetaminophen) 325 Mg Tablet 650 Mg PO Q4HRS Fibercon (Calcium Polycarbophil) 625 Mg Tablet 625 Mg PO QHS Namenda Xr (Memantine Hcl) 21 Mg Cap.spr.24 21 Mg PO DAILY Acidophilus Lactobacillus (Lactobacillus Acidophilus) 1 Each Capsule 1 Each PO BID Omeprazole 20 Mg Capsule.dr 20 Mg PO DAILY Advair Hfa 115-21 Mcg Inhaler (Fluticasone/Salmeterol) 12 Gm Hfa.aer.ad 1 Puff IH BID Klor-Con M20 (Potassium Chloride) 20 Meq Tab.er.prt 20 Meq PO BID Gabapentin 100 Mg Capsule 200 Mg PO TID Amlodipine Besylate 5 Mg Tablet 5 Mg PO DAILY I have reviewed the current psychotropics carefully including drug interactions. Risk benefit ratio favors no change other than as noted in my dictated progress note. Diagnosis: Problems: (1) Anxiety disorder (2) Dementia in Alzheimer's disease with delusions (3) Dementia in Alzheimer's disease with depression (4) Dementia, vascular, with delusions (5) Dementia, vascular, with depression (6) Impulse control disorder RHODA ORTA MD May 13, 2018 20:57
[2018-05-14] MEDS: ALBUTEROL SULFATE 2.5 MG/3 ML NEBU. NEB SCH ×4 (04:03→20:30)
[2018-05-14] MEDS: BUDESONIDE 0.5 MG/2 ML NEBU NEB SCH ×2 (11:25→20:30)
[2018-05-14] MEDS: DICYCLOMINE HCL 20 MG TABLET PO SCH ×4 (11:53→20:40)
[2018-05-14] MEDS: POTASSIUM CHLORIDE 20 MEQ TABLET.ER. PO SCH ×2 (11:53→17:15)
[2018-05-14] MEDS: MEMANTINE 10 MG TABLET. PO SCH ×2 (11:53→20:40)
[2018-05-14] MEDS: amLODIPine BESYLATE 5 MG TABLET PO SCH (11:53)
[2018-05-14] MEDS: GABAPENTIN 100 MG CAPSULE. PO SCH ×3 (11:54→20:40)
[2018-05-14] MEDS: SERTRALINE 25 MG TABLET. PO SCH (11:54)
[2018-05-14] MEDS: PANTOPRAZOLE 40 MG TABLET. PO SCH (11:54)
[2018-05-14] MEDS: LACTOBACILLUS RHAMNOSUS GG 1 CAPSULE. PO SCH ×2 (11:54→20:40)
[2018-05-14] MEDS: QUEtiapine 25 MG TABLET. PO SCH ×2 (11:55→17:16)
[2018-05-14] MEDS: ACETAMINOPHEN 325 MG TABLET PO PRN (12:34)
[2018-05-14 16:23] VITALS: BP 131/81
--- NOTE | 2018-05-14 20:39 | PDOC ---
Exam Note: Aidan Note: Please also refer to the separate dictated note~for this date of service dictated separately.~Patient seen individually. Discussed the patient with Nursing staff reviewed the chart.~Reviewed interim history and current functioning. Reviewed vital signs,~Labs/ Radiology~and current medications noted below. Continue current treatment with the changes noted in the dictated addendum note Assessment: Vital Signs: Vital Signs Date Time Temp Pulse Resp B/P (MAP) Pulse Ox O2 Delivery O2 Flow Rate FiO2 05/14/18 16:32 94 Nasal Cannula 2.0 05/14/18 16:23 97.2 75 18 131/81 (98) I&O Intake and Output 05/14/18 06:59 Intake Total 480 ml Balance 480 ml Intake Oral 480 ml # Voids 1 # Bowel Movements 2 Current Medications: Meds: Current Medications Acetaminophen (Tylenol) 650 mg PRN Q6HRS PRN PO PAIN / TEMP; Start 05/11/18 at 04:15; Stop 05/11/18 at 07:18; Status DC Multi-Ingredient Ointment (Analgesic [place]) 1 shweta PRN QID PRN TP MUSCLE PAIN; Start 05/11/18 at 04:15 Al Hydroxide/Mg Hydroxide (Mylanta Plus Xs) 15 ml PRN AFTMEALHC PRN PO DYSPEPSIA; Start 05/11/18 at 04:15 Magnesium Hydroxide (Milk Of Magnesia) 2,400 mg PRN QHS PRN PO CONSTIPATION; Start 05/11/18 at 04:15 Olanzapine (ZyPREXA ZYDIS) 2.5 mg PRN Q2HR PRN PO PSYCHOSIS Last administered on 05/13/18at 15:23; Start 05/11/18 at 04:45 Memantine (Namenda) 5 mg TID PO Last administered on 05/13/18at 13:21; Start at 09:00; Stop 05/13/18 at 18:34; Status DC Acetaminophen (Tylenol) 650 mg Q4HRS PO ; Start 05/11/18 at 08:00; Stop at 08:00; Status DC Calcium Polycarbophil (Fibercon) 625 mg QHS PO Last administered on 05/13/18at 19 :45; Start 05/11/18 at 21:00 Gabapentin (Neurontin) 200 mg TID PO Last administered on 05/14/18 15:16; Start 05/11/18 at 09:00 Potassium Chloride (Klor-Con) 20 meq BIDWMEALS PO Last administered on 17:15; Start 05/11/18 at 08:00 Amlodipine Besylate (Norvasc) 5 mg DAILY PO Last administered on 05/14/18 11:53 ; Start 05/11/18 at 09:00 Dicyclomine HCl (Bentyl) 20 mg QID PO Last administered on 05/14/18 17:15; Start 05/11/18 at 09:00 Non-Formulary Medication (Fluticasone/ Salmeterol (Advair Hfa 115-21 Mcg Inhaler )) 1 puff BID IH ; Start 05/11/18 at 09:00; Stop 05/11/18 at 09:00; Status DC Hydrocortisone (Proctosol-Hc) 1 shweta PRN QID PRN RC RECTAL PAIN; Start 05/11/18 at 07:30 Lactobacillus Rhamnosus (Culturelle) 1 cap BID PO Last administered on 11:54; Start 05/11/18 at 09:00 Loperamide HCl (Imodium) 2 mg PRN Q4HRS PRN PO DIARRHEA; Start 05/11/18 at 07: 30 Pantoprazole Sodium (Protonix) 40 mg DAILYAC PO Last administered on 05/14/18 11:54; Start 05/11/18 at 07:30 Ondansetron HCl (Zofran Odt) 4 mg PRN Q6HRS PRN PO NAUSEA/VOMITING; Start 05/11 at 07:30 Acetaminophen (Tylenol) 650 mg PRN Q4HRS PRN PO PAIN / TEMP Last administered on 05/14/18 12:34; Start 05/11/18 at 07:30 Albuterol Sulfate (Ventolin) 2.5 mg RTQID NEB Last administered on 05/14/18 20: 30; Start 05/11/18 at 08:00 Budesonide (Pulmicort) 0.5 mg RTBID NEB Last administered on 05/14/18 20:30; Start 05/11/18 at 08:00 Trazodone HCl (Desyrel) 50 mg PRN QHS PRN PO INSOMNIA Last administered on at 23:42; Start 05/11/18 at 18:00 Sertraline HCl (Zoloft) 25 mg DAILY PO Last administered on 05/14/18at 11:54; Start 05/12/18 at 09:00 Memantine (Namenda) 10 mg BID PO Last administered on 05/14/18at 11:53; Start 05/13/18 at 21:00 Quetiapine Fumarate (SEROquel) 12.5 mg 0900,1700 PO Last administered on at 17:16; Start 05/14/18 at 09:00; Stop 05/14/18 at 18:29; Status DC Quetiapine Fumarate (SEROquel) 12.5 mg 0900,1300,1700 PO ; Start 05/15/18 at 09: 00 Active Scripts Active Reported Preparation H (Hydrocortisone) 26 Gm Cream..g. 1 Applic [place] PRN QID PRN Dicyclomine Hcl 20 Mg Tablet 20 Mg PO QID Zofran (Ondansetron Hcl) 4 Mg Tablet 4 Mg PO PRN Q6HRS PRN Imodium A-D (Loperamide HCl) 2 Mg Capsule 2 Mg PO PRN Q4HRS PRN Tylenol (Acetaminophen) 325 Mg Tablet 650 Mg PO Q4HRS Fibercon (Calcium Polycarbophil) 625 Mg Tablet 625 Mg PO QHS Namenda Xr (Memantine Hcl) 21 Mg Cap.spr.24 21 Mg PO DAILY Acidophilus Lactobacillus (Lactobacillus Acidophilus) 1 Each Capsule 1 Each PO BID Omeprazole 20 Mg Capsule.dr 20 Mg PO DAILY Advair Hfa 115-21 Mcg Inhaler (Fluticasone/Salmeterol) 12 Gm Hfa.aer.ad 1 Puff IH BID Klor-Con M20 (Potassium Chloride) 20 Meq Tab.er.prt 20 Meq PO BID Gabapentin 100 Mg Capsule 200 Mg PO TID Amlodipine Besylate 5 Mg Tablet 5 Mg PO DAILY I have reviewed the current psychotropics carefully including drug interactions. Risk benefit ratio favors no change other than as noted in my dictated progress note. Diagnosis: Problems: (1) Anxiety disorder (2) Dementia in Alzheimer's disease with delusions (3) Dementia in Alzheimer's disease with depression (4) Dementia, vascular, with delusions (5) Dementia, vascular, with depression (6) Impulse control disorder RHODA ORTA MD May 14, 2018 20:38
[2018-05-14] MEDS: CALCIUM POLYCARBOPHIL 625 MG TABLET PO SCH (20:40)
--- NOTE | 2018-05-14 21:35 | PN ---
DATE: 05/13/2018 PSYCHIATRIC PROGRESS NOTE This is a late entry 05/13/2018 covers elements not covered in my initial note 05/13/2018. SUBJECTIVE: I met with the patient in the evening. Overall, the patient remains confused, slept 3-3/4 hours previous evening, was quite irritable with other patients on the unit at night and towards the evening was banging the doors, labile, anxious, aggressive, abrasive, agitated. REVIEW OF SYSTEMS: No CV, , pulmonary, eye, ENT system symptoms on review. Reliability poor. Ambulates in wheelchair. MENTAL STATUS EXAM: Oriented to herself. Insight, judgment, recent and remote memory, attention, concentration, fund of knowledge poor, consistent with her diagnosis mentioned in my initial note. IMPRESSION: Major neurocognitive disorder, Alzheimer, vascular with delusion, depression, behavioral disturbance. Rest unchanged. PLAN: Change Namenda to 10 mg twice a day, start Seroquel 12.5 mg 9 a.m., 5 p.m. Maintain Zoloft 25 mg a day, Zyprexa p.r.n., Trazodone p.r.n. MAN Lyla ORTA MD DR: WARREN/vanessa JOB#: [id number] / [id number]
[2018-05-15] MEDS: ALBUTEROL SULFATE 2.5 MG/3 ML NEBU. NEB SCH ×4 (06:10→21:02)
[2018-05-15] MEDS: BUDESONIDE 0.5 MG/2 ML NEBU NEB SCH ×2 (06:12→21:02)
[2018-05-15 06:15] VITALS: BP 111/63
[2018-05-15] MEDS: amLODIPine BESYLATE 5 MG TABLET PO SCH (08:01)
[2018-05-15] MEDS: POTASSIUM CHLORIDE 20 MEQ TABLET.ER. PO SCH ×2 (08:01→17:00)
[2018-05-15] MEDS: PANTOPRAZOLE 40 MG TABLET. PO SCH (08:01)
[2018-05-15] MEDS: SERTRALINE 25 MG TABLET. PO SCH (08:02)
[2018-05-15] MEDS: LACTOBACILLUS RHAMNOSUS GG 1 CAPSULE. PO SCH ×2 (08:02→20:22)
[2018-05-15] MEDS: GABAPENTIN 100 MG CAPSULE. PO SCH ×3 (08:02→20:22)
[2018-05-15] MEDS: DICYCLOMINE HCL 20 MG TABLET PO SCH ×4 (08:02→20:22)
[2018-05-15] MEDS: MEMANTINE 10 MG TABLET. PO SCH ×2 (08:02→20:22)
[2018-05-15] MEDS: QUEtiapine 25 MG TABLET. PO SCH ×3 (08:04→17:00)
[2018-05-15 08:52] LABS: BILIRUBIN,URINE NEG (NEG); CLARITY,URINE CLEAR; COLOR,URINE YELLOW; GLUCOSE,URINE NEG (NEG)
[2018-05-15 08:53] LABS: BACTERIA,URINE 0 /HPF (0-FEW); NITRITE,URINE NEG (NEG); RBC,URINE 0 /HPF (0-2); SQUAMOUS EPITHELIAL CELL,UR OCC /LPF; UROBILINOGEN,URINE 0.2 mg/dL (0.2 mg/dL)
--- NOTE | 2018-05-15 11:29 | RAD ---
EXAM: Head CT without contrast. HISTORY: Altered mental status. TECHNIQUE: Computed tomographic images of the head were obtained without contrast. *One or more of the following individualized dose reduction techniques were utilized for this examination: 1. Automated exposure control. 2. Adjustment of the mA and/or kV according to patient size. 3. Use of iterative reconstruction technique. COMPARISON: None. FINDINGS: There is no acute or subacute extra-axial or intraparenchymal hemorrhage. There is no mass effect or midline shift. There is no hydrocephalus. There is cerebral atrophy with compensatory enlargement of the ventricles. There is extensive hypodensity throughout the cerebral white matter, likely due to chronic small vessel disease. There is a suspected chronic lacunar infarct within the left basal ganglia. There is a suspected chronic lacunar infarct within the right thalamus. The visualized portions of the orbits, paranasal sinuses and mastoid air cells are unremarkable. No suspicious calvarial lesion is seen. IMPRESSION: 1. No acute intracranial finding. Note is made that MRI is more sensitive for acute infarction. 2. Extensive hypodensity throughout the cerebral white matter, a nonspecific finding likely due to chronic small vessel disease. 3. Cerebral atrophy with compensatory enlargement of the ventricles. 4. Suspected chronic infarcts within the left basal ganglia and right thalamus. Electronically signed by: Perlita Alvarez MD (05/15/2018 11:26 AM) [facility]
[2018-05-15 16:13] VITALS: BP 94/63
[2018-05-15] MEDS: CALCIUM POLYCARBOPHIL 625 MG TABLET PO SCH (20:22)
--- NOTE | 2018-05-15 20:33 | PDOC ---
Exam Note: Aidan Note: Please also refer to the separate dictated note~for this date of service dictated separately.~Patient seen individually. Discussed the patient with Nursing staff reviewed the chart.~Reviewed interim history and current functioning. Reviewed vital signs,~Labs/ Radiology~and current medications noted below. Continue current treatment with the changes noted in the dictated addendum note Assessment: Vital Signs: Vital Signs Date Time Temp Pulse Resp B/P (MAP) Pulse Ox O2 Delivery O2 Flow Rate FiO2 05/15/18 16:43 96 Nasal Cannula 2.0 05/15/18 16:13 97.5 98 18 94/63 (73) I&O Intake and Output 05/15/18 07:00 Intake Total 480 ml Balance 480 ml Intake Oral 480 ml # Voids 1 Labs: Laboratory Tests Test 05/15/18 08:37 Urine Collection Type Unknown Urine Color Yellow Urine Clarity Clear Urine pH 6.5 Urine Specific [place] 1.010 Urine Protein Neg (NEG-TRACE) Urine Glucose (UA) Neg mg/dL (NEG) Urine Ketones (Stick) Neg mg/dL (NEG) Urine Blood Trace (NEG) Urine Nitrite Neg (NEG) Urine Bilirubin Neg (NEG) Urine Urobilinogen Dipstick 0.2 mg/dL (0.2 mg/dL) Urine Leukocyte Esterase Trace (NEG) Urine RBC 0 /HPF (0-2) Urine WBC 5-10 /HPF (0-4) Urine Squamous Epithelial Cells Occ /LPF Urine Bacteria 0 /HPF (0-FEW) Urine Mucus Slight /LPF Current Medications: Meds: Current Medications Acetaminophen (Tylenol) 650 mg PRN Q6HRS PRN PO PAIN / TEMP; Start 05/11/18 at 04:15; Stop 05/11/18 at 07:18; Status DC Multi-Ingredient Ointment (Analgesic [place]) 1 shweta PRN QID PRN TP MUSCLE PAIN; Start 05/11/18 at 04:15 Al Hydroxide/Mg Hydroxide (Mylanta Plus Xs) 15 ml PRN AFTMEALHC PRN PO DYSPEPSIA; Start 05/11/18 at 04:15 Magnesium Hydroxide (Milk Of Magnesia) 2,400 mg PRN QHS PRN PO CONSTIPATION; Start 05/11/18 at 04:15 Olanzapine (ZyPREXA ZYDIS) 2.5 mg PRN Q2HR PRN PO PSYCHOSIS Last administered on 05/15/18 13:29; Start 05/11/18 at 04:45 Memantine (Namenda) 5 mg TID PO Last administered on 05/13/18 13:21; Start at 09:00; Stop 05/13/18 at 18:34; Status DC Acetaminophen (Tylenol) 650 mg Q4HRS PO ; Start 05/11/18 at 08:00; Stop at 08:00; Status DC Calcium Polycarbophil (Fibercon) 625 mg QHS PO Last administered on 05/15/18 20 :22; Start 05/11/18 at 21:00 Gabapentin (Neurontin) 200 mg TID PO Last administered on 05/15/18 20:22; Start 05/11/18 at 09:00 Potassium Chloride (Klor-Con) 20 meq BIDWMEALS PO Last administered on 17:00; Start 05/11/18 at 08:00 Amlodipine Besylate (Norvasc) 5 mg DAILY PO Last administered on 05/15/18 08:01 ; Start 05/11/18 at 09:00 Dicyclomine HCl (Bentyl) 20 mg QID PO Last administered on 05/15/18 20:22; Start 05/11/18 at 09:00 Non-Formulary Medication (Fluticasone/ Salmeterol (Advair Hfa 115-21 Mcg Inhaler )) 1 puff BID IH ; Start 05/11/18 at 09:00; Stop 05/11/18 at 09:00; Status DC Hydrocortisone (Proctosol-Hc) 1 shweta PRN QID PRN RC RECTAL PAIN; Start 05/11/18 at 07:30 Lactobacillus Rhamnosus (Culturelle) 1 cap BID PO Last administered on 20:22; Start 05/11/18 at 09:00 Loperamide HCl (Imodium) 2 mg PRN Q4HRS PRN PO DIARRHEA; Start 05/11/18 at 07: 30 Pantoprazole Sodium (Protonix) 40 mg DAILYAC PO Last administered on 05/15/18 08:01; Start 05/11/18 at 07:30 Ondansetron HCl (Zofran Odt) 4 mg PRN Q6HRS PRN PO NAUSEA/VOMITING; Start 05/11 at 07:30 Acetaminophen (Tylenol) 650 mg PRN Q4HRS PRN PO PAIN / TEMP Last administered on 05/14/18 12:34; Start 05/11/18 at 07:30 Albuterol Sulfate (Ventolin) 2.5 mg RTQID NEB Last administered on 05/15/18 16: 43; Start 05/11/18 at 08:00 Budesonide (Pulmicort) 0.5 mg RTBID NEB Last administered on 05/15/18 06:12; Start 05/11/18 at 08:00 Trazodone HCl (Desyrel) 50 mg PRN QHS PRN PO INSOMNIA Last administered on 23:42; Start 05/11/18 at 18:00 Sertraline HCl (Zoloft) 25 mg DAILY PO Last administered on 05/15/18 08:02; Start 05/12/18 at 09:00 Memantine (Namenda) 10 mg BID PO Last administered on 05/15/18 20:22; Start 05/13/18 at 21:00 Quetiapine Fumarate (SEROquel) 12.5 mg 0900,1700 PO Last administered on 17:16; Start 05/14/18 at 09:00; Stop 05/14/18 at 18:29; Status DC Quetiapine Fumarate (SEROquel) 12.5 mg 0900,1300,1700 PO Last administered on 17:00; Start 05/15/18 at 09:00 Active Scripts Active Reported Preparation H (Hydrocortisone) 26 Gm Cream..g. 1 Applic [place] PRN QID PRN Dicyclomine Hcl 20 Mg Tablet 20 Mg PO QID Zofran (Ondansetron Hcl) 4 Mg Tablet 4 Mg PO PRN Q6HRS PRN Imodium A-D (Loperamide HCl) 2 Mg Capsule 2 Mg PO PRN Q4HRS PRN Tylenol (Acetaminophen) 325 Mg Tablet 650 Mg PO Q4HRS Fibercon (Calcium Polycarbophil) 625 Mg Tablet 625 Mg PO QHS Namenda Xr (Memantine Hcl) 21 Mg Cap.spr.24 21 Mg PO DAILY Acidophilus Lactobacillus (Lactobacillus Acidophilus) 1 Each Capsule 1 Each PO BID Omeprazole 20 Mg Capsule.dr 20 Mg PO DAILY Advair Hfa 115-21 Mcg Inhaler (Fluticasone/Salmeterol) 12 Gm Hfa.aer.ad 1 Puff IH BID Klor-Con M20 (Potassium Chloride) 20 Meq Tab.er.prt 20 Meq PO BID Gabapentin 100 Mg Capsule 200 Mg PO TID Amlodipine Besylate 5 Mg Tablet 5 Mg PO DAILY I have reviewed the current psychotropics carefully including drug interactions. Risk benefit ratio favors no change other than as noted in my dictated progress note. Diagnosis: Problems: (1) Anxiety disorder (2) Dementia in Alzheimer's disease with delusions (3) Dementia in Alzheimer's disease with depression (4) Dementia, vascular, with delusions (5) Dementia, vascular, with depression (6) Impulse control disorder RHODA ORTA MD May 15, 2018 20:33
[2018-05-16 05:46] VITALS: BP 151/93
[2018-05-16] MEDS: BUDESONIDE 0.5 MG/2 ML NEBU NEB SCH ×2 (06:16→20:22)
[2018-05-16] MEDS: ALBUTEROL SULFATE 2.5 MG/3 ML NEBU. NEB SCH ×4 (06:17→20:22)
[2018-05-16] MEDS: MEMANTINE 10 MG TABLET. PO SCH ×2 (07:41→20:02)
[2018-05-16] MEDS: POTASSIUM CHLORIDE 20 MEQ TABLET.ER. PO SCH ×2 (07:42→17:04)
[2018-05-16] MEDS: PANTOPRAZOLE 40 MG TABLET. PO SCH (07:42)
[2018-05-16] MEDS: LACTOBACILLUS RHAMNOSUS GG 1 CAPSULE. PO SCH ×2 (07:42→20:02)
[2018-05-16] MEDS: DICYCLOMINE HCL 20 MG TABLET PO SCH ×4 (07:42→20:02)
[2018-05-16] MEDS: amLODIPine BESYLATE 5 MG TABLET PO SCH (07:42)
[2018-05-16] MEDS: SERTRALINE 25 MG TABLET. PO SCH (07:43)
[2018-05-16] MEDS: GABAPENTIN 100 MG CAPSULE. PO SCH ×3 (07:43→20:04)
[2018-05-16] MEDS: QUEtiapine 25 MG TABLET. PO SCH ×3 (07:43→17:16)
[2018-05-16 16:00] VITALS: BP 145/82
[2018-05-16] MEDS: CALCIUM POLYCARBOPHIL 625 MG TABLET PO SCH (20:02)
--- NOTE | 2018-05-16 20:55 | PDOC ---
Exam Note: Aidan Note: Please also refer to the separate dictated note~for this date of service dictated separately.~Patient seen individually. Discussed the patient with Nursing staff reviewed the chart.~Reviewed interim history and current functioning. Reviewed vital signs,~Labs/ Radiology~and current medications noted below. Continue current treatment with the changes noted in the dictated addendum note Assessment: Vital Signs: Vital Signs Date Time Temp Pulse Resp B/P (MAP) Pulse Ox O2 Delivery O2 Flow Rate FiO2 05/16/18 20:15 93 Nasal Cannula 2.0 05/16/18 16:00 97.8 97 20 145/82 (103) I&O Intake and Output 05/16/18 06:59 Intake Total 1120 ml Balance 1120 ml Intake Oral 1120 ml # Voids 1 # Bowel Movements 1 Current Medications: Meds: Current Medications Acetaminophen (Tylenol) 650 mg PRN Q6HRS PRN PO PAIN / TEMP; Start 05/11/18 at 04:15; Stop 05/11/18 at 07:18; Status DC Multi-Ingredient Ointment (Analgesic [place]) 1 shweta PRN QID PRN TP MUSCLE PAIN; Start 05/11/18 at 04:15 Al Hydroxide/Mg Hydroxide (Mylanta Plus Xs) 15 ml PRN AFTMEALHC PRN PO DYSPEPSIA; Start 05/11/18 at 04:15 Magnesium Hydroxide (Milk Of Magnesia) 2,400 mg PRN QHS PRN PO CONSTIPATION; Start 05/11/18 at 04:15 Olanzapine (ZyPREXA ZYDIS) 2.5 mg PRN Q2HR PRN PO PSYCHOSIS Last administered on 05/15/18at 13:29; Start 05/11/18 at 04:45 Memantine (Namenda) 5 mg TID PO Last administered on 05/13/18at 13:21; Start at 09:00; Stop 05/13/18 at 18:34; Status DC Acetaminophen (Tylenol) 650 mg Q4HRS PO ; Start 05/11/18 at 08:00; Stop at 08:00; Status DC Calcium Polycarbophil (Fibercon) 625 mg QHS PO Last administered on 05/16/18at 20 :02; Start 05/11/18 at 21:00 Gabapentin (Neurontin) 200 mg TID PO Last administered on 05/16/18 20:04; Start 05/11/18 at 09:00 Potassium Chloride (Klor-Con) 20 meq BIDWMEALS PO Last administered on 17:04; Start 05/11/18 at 08:00 Amlodipine Besylate (Norvasc) 5 mg DAILY PO Last administered on 05/16/18 07:42 ; Start 05/11/18 at 09:00 Dicyclomine HCl (Bentyl) 20 mg QID PO Last administered on 05/16/18 20:02; Start 05/11/18 at 09:00 Non-Formulary Medication (Fluticasone/ Salmeterol (Advair Hfa 115-21 Mcg Inhaler )) 1 puff BID IH ; Start 05/11/18 at 09:00; Stop 05/11/18 at 09:00; Status DC Hydrocortisone (Proctosol-Hc) 1 shweta PRN QID PRN RC RECTAL PAIN; Start 05/11/18 at 07:30 Lactobacillus Rhamnosus (Culturelle) 1 cap BID PO Last administered on 20:02; Start 05/11/18 at 09:00 Loperamide HCl (Imodium) 2 mg PRN Q4HRS PRN PO DIARRHEA; Start 05/11/18 at 07: 30 Pantoprazole Sodium (Protonix) 40 mg DAILYAC PO Last administered on 05/16/18 07:42; Start 05/11/18 at 07:30 Ondansetron HCl (Zofran Odt) 4 mg PRN Q6HRS PRN PO NAUSEA/VOMITING; Start 05/11 at 07:30 Acetaminophen (Tylenol) 650 mg PRN Q4HRS PRN PO PAIN / TEMP Last administered on 05/14/18 12:34; Start 05/11/18 at 07:30 Albuterol Sulfate (Ventolin) 2.5 mg RTQID NEB Last administered on 05/16/18 20: 22; Start 05/11/18 at 08:00 Budesonide (Pulmicort) 0.5 mg RTBID NEB Last administered on 05/16/18 20:22; Start 05/11/18 at 08:00 Trazodone HCl (Desyrel) 50 mg PRN QHS PRN PO INSOMNIA Last administered on at 23:42; Start 05/11/18 at 18:00 Sertraline HCl (Zoloft) 25 mg DAILY PO Last administered on 05/16/18at 07:43; Start 05/12/18 at 09:00 Memantine (Namenda) 10 mg BID PO Last administered on 05/16/18at 20:02; Start 05/13/18 at 21:00 Quetiapine Fumarate (SEROquel) 12.5 mg 0900,1700 PO Last administered on at 17:16; Start 05/14/18 at 09:00; Stop 05/14/18 at 18:29; Status DC Quetiapine Fumarate (SEROquel) 12.5 mg 0900,1300,1700 PO Last administered on at 17:16; Start 05/15/18 at 09:00 Active Scripts Active Reported Preparation H (Hydrocortisone) 26 Gm Cream..g. 1 Applic [place] PRN QID PRN Dicyclomine Hcl 20 Mg Tablet 20 Mg PO QID Zofran (Ondansetron Hcl) 4 Mg Tablet 4 Mg PO PRN Q6HRS PRN Imodium A-D (Loperamide HCl) 2 Mg Capsule 2 Mg PO PRN Q4HRS PRN Tylenol (Acetaminophen) 325 Mg Tablet 650 Mg PO Q4HRS Fibercon (Calcium Polycarbophil) 625 Mg Tablet 625 Mg PO QHS Namenda Xr (Memantine Hcl) 21 Mg Cap.spr.24 21 Mg PO DAILY Acidophilus Lactobacillus (Lactobacillus Acidophilus) 1 Each Capsule 1 Each PO BID Omeprazole 20 Mg Capsule.dr 20 Mg PO DAILY Advair Hfa 115-21 Mcg Inhaler (Fluticasone/Salmeterol) 12 Gm Hfa.aer.ad 1 Puff IH BID Klor-Con M20 (Potassium Chloride) 20 Meq Tab.er.prt 20 Meq PO BID Gabapentin 100 Mg Capsule 200 Mg PO TID Amlodipine Besylate 5 Mg Tablet 5 Mg PO DAILY I have reviewed the current psychotropics carefully including drug interactions. Risk benefit ratio favors no change other than as noted in my dictated progress note. Diagnosis: Problems: (1) Anxiety disorder (2) Dementia in Alzheimer's disease with delusions (3) Dementia in Alzheimer's disease with depression (4) Dementia, vascular, with delusions (5) Dementia, vascular, with depression (6) Impulse control disorder RHODA ORTA MD May 16, 2018 20:55
--- NOTE | 2018-05-16 21:47 | PN ---
DATE: 05/14/2018 PSYCHIATRIC PROGRESS NOTE This is a late entry 05/14/2018, covers elements not covered in my initial note. SUBJECTIVE: I met with the patient evening of 05/14/2018. The patient slept 1-3/4 hours previous evening, then slept until about 11:30 a.m. Previous night she was delusional, hallucination sarcastic, refusing transfer and quite irritable, labile. REVIEW OF SYSTEMS: Ambulation impaired, in wheelchair. No CV, , pulmonary, eye, ENT system symptoms on review. MENTAL STATUS EXAM: Oriented to herself. Insight, judgment, recent and remote memory, attention, concentration, fund of knowledge poor, consistent with her diagnoses mentioned in my initial note. PLAN: Check UA, rule out urinary tract infection. CT head shows basal ganglia infarct. She has a past history of brain aneurysm treatment in 2008. IMPRESSION: Unchanged from initial note. PLAN: Increase Seroquel from 12.5 mg b.i.d. to 12.5 mg 3 times a day. Continue Zoloft at current dosage, Namenda, though this might have little benefit for her trazodone. MAN Lyla ORTA MD DR: WARREN/vanessa JOB#: [id number] / [id number]
[2018-05-17] MEDS: ALBUTEROL SULFATE 2.5 MG/3 ML NEBU. NEB SCH ×4 (05:17→20:18)
[2018-05-17 05:47] VITALS: BP 157/86
[2018-05-17] MEDS: MEMANTINE 10 MG TABLET. PO SCH ×2 (08:11→19:40)
[2018-05-17] MEDS: LACTOBACILLUS RHAMNOSUS GG 1 CAPSULE. PO SCH ×2 (08:11→19:40)
[2018-05-17] MEDS: SERTRALINE 25 MG TABLET. PO SCH (08:11)
[2018-05-17] MEDS: DICYCLOMINE HCL 20 MG TABLET PO SCH ×4 (08:11→19:40)
[2018-05-17] MEDS: QUEtiapine 25 MG TABLET. PO SCH ×3 (08:12→17:19)
[2018-05-17] MEDS: PANTOPRAZOLE 40 MG TABLET. PO SCH (08:12)
[2018-05-17] MEDS: amLODIPine BESYLATE 5 MG TABLET PO SCH (08:12)
[2018-05-17] MEDS: GABAPENTIN 100 MG CAPSULE. PO SCH ×3 (08:12→19:40)
[2018-05-17] MEDS: POTASSIUM CHLORIDE 20 MEQ TABLET.ER. PO SCH ×2 (08:12→17:19)
[2018-05-17] MEDS: BUDESONIDE 0.5 MG/2 ML NEBU NEB SCH ×2 (10:27→20:18)
[2018-05-17 16:35] VITALS: BP 132/62
[2018-05-17] MEDS: CALCIUM POLYCARBOPHIL 625 MG TABLET PO SCH (19:40)
--- NOTE | 2018-05-17 22:28 | PN ---
DATE: 05/15/2018 PSYCHIATRIC PROGRESS NOTE This late entry 05/15/2018 covers the elements not covered in my initial note. SUBJECTIVE: I met with the patient in afternoon of 05/15/2018. The patient slept 6 hours previous evening. At night, she was disorganized, calling out people's names, unrelated to anything around. 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 Received Zyprexa at 1:30 p.m. Urine, reflex to culture. REVIEW OF SYSTEMS: Ambulation impaired, in wheelchair. No CV, , pulmonary, eye, ENT system symptoms on review. Reliability is poor. MENTAL STATUS EXAM: Oriented to herself. Insight, judgment, recent, remote memory, attention, concentration, fund of knowledge is poor, consistent with her diagnosis from initial note. PLAN: Continue psychotropics from initial note. Treat UTI if positive. May stop the Namenda, but we will decide in a day or two. Continue Zoloft. MAN Lyla ORTA MD DR: WARREN/vanessa JOB#: [id number] / [id number]
--- NOTE | 2018-05-17 22:51 | PN ---
DATE: 05/16/2018 PSYCHIATRIC PROGRESS NOTE This is a late is entry 05/16/2018, covers elements not covered in my initial note 05/16/2018. SUBJECTIVE: I met with the patient in the evening, staffed at treatment team meeting with the entire team in the morning and her son, Franck attended the treatment team meeting. Lengthy discussion during this history about worsening cognition for the past 6 months. Her has been for about 15 years and she has been looking for him and for her parents as well. Appetite about 60%, slept about 5 hours previous evening, aggressive with guest service aide at times. CT head shows chronic changes, no acute changes. Cooperative with medications for 2 days, disorganized, labile. REVIEW OF SYSTEMS: Ambulation impaired, in wheelchair. No CV, , pulmonary, eye, ENT system symptoms on review. MENTAL STATUS EXAM: The patient is oriented to herself. Insight, judgment, recent and remote memory, attention, concentration, fund of knowledge poor, consistent with her diagnoses mentioned in my initial note. PLAN: Continue current psychotropics. Adjust further as clinically indicated. CT head shows chronic changes, no acute changes. Discussed diagnoses at great length with the son. prognosis, treatment options, risks, benefit ratio and side effects. RHODA ORTA MD DR: WARREN/vanessa JOB#: [id number] / [id number]
--- NOTE | 2018-05-17 23:02 | PDOC ---
Exam Note: Aidan Note: Please also refer to the separate dictated note~for this date of service dictated separately.~Patient seen individually. Discussed the patient with Nursing staff reviewed the chart.~Reviewed interim history and current functioning. Reviewed vital signs,~Labs/ Radiology~and current medications noted below. Continue current treatment with the changes noted in the dictated addendum note Assessment: Vital Signs: Vital Signs Date Time Temp Pulse Resp B/P (MAP) Pulse Ox O2 Delivery O2 Flow Rate FiO2 05/17/18 20:20 74 Room Air 05/17/18 16:35 97.8 96 20 132/62 (85) 2.0 I&O Intake and Output 05/17/18 06:59 Intake Total 540 ml Balance 540 ml Intake Oral 540 ml # Voids 1 # Bowel Movements 2 Current Medications: Meds: Current Medications Acetaminophen (Tylenol) 650 mg PRN Q6HRS PRN PO PAIN / TEMP; Start 05/11/18 at 04:15; Stop 05/11/18 at 07:18; Status DC Multi-Ingredient Ointment (Analgesic [place]) 1 shweta PRN QID PRN TP MUSCLE PAIN; Start 05/11/18 at 04:15 Al Hydroxide/Mg Hydroxide (Mylanta Plus Xs) 15 ml PRN AFTMEALHC PRN PO DYSPEPSIA; Start 05/11/18 at 04:15 Magnesium Hydroxide (Milk Of Magnesia) 2,400 mg PRN QHS PRN PO CONSTIPATION; Start 05/11/18 at 04:15 Olanzapine (ZyPREXA ZYDIS) 2.5 mg PRN Q2HR PRN PO PSYCHOSIS Last administered on 05/15/18at 13:29; Start 05/11/18 at 04:45 Memantine (Namenda) 5 mg TID PO Last administered on 05/13/18at 13:21; Start at 09:00; Stop 05/13/18 at 18:34; Status DC Acetaminophen (Tylenol) 650 mg Q4HRS PO ; Start 05/11/18 at 08:00; Stop at 08:00; Status DC Calcium Polycarbophil (Fibercon) 625 mg QHS PO Last administered on 05/17/18at 19 :40; Start 05/11/18 at 21:00 Gabapentin (Neurontin) 200 mg TID PO Last administered on 05/17/18 19:40; Start 05/11/18 at 09:00 Potassium Chloride (Klor-Con) 20 meq BIDWMEALS PO Last administered on 17:19; Start 05/11/18 at 08:00 Amlodipine Besylate (Norvasc) 5 mg DAILY PO Last administered on 05/17/18 08:12 ; Start 05/11/18 at 09:00 Dicyclomine HCl (Bentyl) 20 mg QID PO Last administered on 05/17/18 19:40; Start 05/11/18 at 09:00 Non-Formulary Medication (Fluticasone/ Salmeterol (Advair Hfa 115-21 Mcg Inhaler )) 1 puff BID IH ; Start 05/11/18 at 09:00; Stop 05/11/18 at 09:00; Status DC Hydrocortisone (Proctosol-Hc) 1 shweta PRN QID PRN RC RECTAL PAIN; Start 05/11/18 at 07:30 Lactobacillus Rhamnosus (Culturelle) 1 cap BID PO Last administered on 19:40; Start 05/11/18 at 09:00 Loperamide HCl (Imodium) 2 mg PRN Q4HRS PRN PO DIARRHEA; Start 05/11/18 at 07: 30 Pantoprazole Sodium (Protonix) 40 mg DAILYAC PO Last administered on 05/17/18at 08:12; Start 05/11/18 at 07:30 Ondansetron HCl (Zofran Odt) 4 mg PRN Q6HRS PRN PO NAUSEA/VOMITING; Start 05/11 at 07:30 Acetaminophen (Tylenol) 650 mg PRN Q4HRS PRN PO PAIN / TEMP Last administered on 05/14/18 12:34; Start 05/11/18 at 07:30 Albuterol Sulfate (Ventolin) 2.5 mg RTQID NEB Last administered on 05/17/18 20: 18; Start 05/11/18 at 08:00 Budesonide (Pulmicort) 0.5 mg RTBID NEB Last administered on 05/17/18 20:18; Start 05/11/18 at 08:00 Trazodone HCl (Desyrel) 50 mg PRN QHS PRN PO INSOMNIA Last administered on at 23:42; Start 05/11/18 at 18:00 Sertraline HCl (Zoloft) 25 mg DAILY PO Last administered on 05/17/18at 08:11; Start 05/12/18 at 09:00 Memantine (Namenda) 10 mg BID PO Last administered on 05/17/18at 19:40; Start 05/13/18 at 21:00 Quetiapine Fumarate (SEROquel) 12.5 mg 0900,1700 PO Last administered on at 17:16; Start 05/14/18 at 09:00; Stop 05/14/18 at 18:29; Status DC Quetiapine Fumarate (SEROquel) 12.5 mg 0900,1300,1700 PO Last administered on at 17:19; Start 05/15/18 at 09:00; Stop 05/17/18 at 19:16; Status DC Quetiapine Fumarate (SEROquel) 12.5 mg 1300,1700 PO ; Start 05/18/18 at 13:00 Quetiapine Fumarate (SEROquel) 25 mg DAILY PO ; Start 05/18/18 at 09:00 Active Scripts Active Reported Preparation H (Hydrocortisone) 26 Gm Cream..g. 1 Applic [place] PRN QID PRN Dicyclomine Hcl 20 Mg Tablet 20 Mg PO QID Zofran (Ondansetron Hcl) 4 Mg Tablet 4 Mg PO PRN Q6HRS PRN Imodium A-D (Loperamide HCl) 2 Mg Capsule 2 Mg PO PRN Q4HRS PRN Tylenol (Acetaminophen) 325 Mg Tablet 650 Mg PO Q4HRS Fibercon (Calcium Polycarbophil) 625 Mg Tablet 625 Mg PO QHS Namenda Xr (Memantine Hcl) 21 Mg Cap.spr.24 21 Mg PO DAILY Acidophilus Lactobacillus (Lactobacillus Acidophilus) 1 Each Capsule 1 Each PO BID Omeprazole 20 Mg Capsule.dr 20 Mg PO DAILY Advair Hfa 115-21 Mcg Inhaler (Fluticasone/Salmeterol) 12 Gm Hfa.aer.ad 1 Puff IH BID Klor-Con M20 (Potassium Chloride) 20 Meq Tab.er.prt 20 Meq PO BID Gabapentin 100 Mg Capsule 200 Mg PO TID Amlodipine Besylate 5 Mg Tablet 5 Mg PO DAILY I have reviewed the current psychotropics carefully including drug interactions. Risk benefit ratio favors no change other than as noted in my dictated progress note. Diagnosis: Problems: (1) Anxiety disorder (2) Dementia in Alzheimer's disease with delusions (3) Dementia in Alzheimer's disease with depression (4) Dementia, vascular, with delusions (5) Dementia, vascular, with depression (6) Impulse control disorder RHODA ORTA MD May 17, 2018 23:02
[2018-05-18] MEDS: ALBUTEROL SULFATE 2.5 MG/3 ML NEBU. NEB SCH ×4 (04:59→20:18)
[2018-05-18 06:15] VITALS: BP 164/79
[2018-05-18] MEDS: DICYCLOMINE HCL 20 MG TABLET PO SCH ×4 (07:40→19:34)
[2018-05-18] MEDS: GABAPENTIN 100 MG CAPSULE. PO SCH ×3 (07:40→19:35)
[2018-05-18] MEDS: LACTOBACILLUS RHAMNOSUS GG 1 CAPSULE. PO SCH ×2 (07:40→19:34)
[2018-05-18] MEDS: SERTRALINE 25 MG TABLET. PO SCH (07:41)
[2018-05-18] MEDS: amLODIPine BESYLATE 5 MG TABLET PO SCH (07:41)
[2018-05-18] MEDS: POTASSIUM CHLORIDE 20 MEQ TABLET.ER. PO SCH ×2 (07:41→17:00)
[2018-05-18] MEDS: PANTOPRAZOLE 40 MG TABLET. PO SCH (07:41)
[2018-05-18] MEDS: MEMANTINE 10 MG TABLET. PO SCH ×2 (07:41→19:34)
[2018-05-18] MEDS: QUEtiapine 25 MG TABLET. PO SCH ×3 (07:43→17:30)
[2018-05-18 07:55] LABS: BASO # 0.1 x10^3/uL (0.0-0.2); BASO % 1 % (0-3); EOS # 0.3 x10^3/uL (0.0-0.7); EOS % 4 % (0-3); HEMATOCRIT 41.3 % (36.0-47.0); HEMOGLOBIN 13.6 g/dL (12.0-15.5); LYMPH # 0.7 x10^3/uL (1.0-4.8); LYMPH % 9 % (24-48); MEAN CORPUSCULAR HEMOGLOBIN 29 pg (25-35); MEAN CORPUSCULAR HGB CONC 33 g/dL (31-37); MEAN CORPUSCULAR VOLUME 89 fL (79-100); MONO # 0.6 x10^3/uL (0.0-1.1); MONO % 7 % (0-9); NEUT # 6.3 x10^3uL (1.8-7.7); NEUT % 79 % (31-73); PLATELET COUNT 239 x10^3/uL (140-400); RED BLOOD COUNT 4.67 x10^6/uL (3.50-5.40)
[2018-05-18 08:27] LABS: ALBUMIN 3.7 g/dL (3.4-5.0); ALBUMIN/GLOBULIN RATIO 0.9 (1.0-1.7); CALCIUM 9.3 mg/dL (8.5-10.1); CREATININE 0.6 mg/dL (0.6-1.0); GFR 97.5; POTASSIUM 4.2 mmol/L (3.5-5.1); TOTAL BILIRUBIN 0.9 mg/dL (0.2-1.0); TOTAL PROTEIN 7.9 g/dL (6.4-8.2)
[2018-05-18] MEDS: BUDESONIDE 0.5 MG/2 ML NEBU NEB SCH ×2 (10:38→20:18)
[2018-05-18 16:15] VITALS: BP 141/80
[2018-05-18] MEDS: CALCIUM POLYCARBOPHIL 625 MG TABLET PO SCH (19:34)
--- NOTE | 2018-05-18 22:33 | PDOC ---
Exam Note: Aidan Note: Please also refer to the separate dictated note~for this date of service dictated separately.~Patient seen individually. Discussed the patient with Nursing staff reviewed the chart.~Reviewed interim history and current functioning. Reviewed vital signs,~Labs/ Radiology~and current medications noted below. Continue current treatment with the changes noted in the dictated addendum note Assessment: Vital Signs: Vital Signs Date Time Temp Pulse Resp B/P (MAP) Pulse Ox O2 Delivery O2 Flow Rate FiO2 05/18/18 20:20 93 Nasal Cannula 2.0 05/18/18 16:15 97.2 96 22 141/80 (100) I&O Intake and Output 05/18/18 06:59 Intake Total 305 ml Balance 305 ml Intake Oral 305 ml # Bowel Movements 1 Labs: Laboratory Tests Test 05/18/18 07:10 White Blood Count 8.0 x10^3/uL (4.0-11.0) Red Blood Count 4.67 x10^6/uL (3.50-5.40) Hemoglobin 13.6 g/dL (12.0-15.5) Hematocrit 41.3 % (36.0-47.0) Mean Corpuscular Volume 89 fL (79-100) Mean Corpuscular Hemoglobin 29 pg (25-35) Mean Corpuscular Hemoglobin Concent 33 g/dL (31-37) Red Cell Distribution Width 17.0 % (11.5-14.5) H Platelet Count 239 x10^3/uL (140-400) Neutrophils (%) (Auto) 79 % (31-73) H Lymphocytes (%) (Auto) 9 % (24-48) L Monocytes (%) (Auto) 7 % (0-9) Eosinophils (%) (Auto) 4 % (0-3) H Basophils (%) (Auto) 1 % (0-3) Neutrophils # (Auto) 6.3 x10^3uL (1.8-7.7) Lymphocytes # (Auto) 0.7 x10^3/uL (1.0-4.8) L Monocytes # (Auto) 0.6 x10^3/uL (0.0-1.1) Eosinophils # (Auto) 0.3 x10^3/uL (0.0-0.7) Basophils # (Auto) 0.1 x10^3/uL (0.0-0.2) Sodium Level 140 mmol/L (136-145) Potassium Level 4.2 mmol/L (3.5-5.1) Chloride Level 105 mmol/L (98-107) Carbon Dioxide Level 29 mmol/L (21-32) Anion Gap 6 (6-14) Blood Urea Nitrogen 14 mg/dL (7-20) Creatinine 0.6 mg/dL (0.6-1.0) Estimated GFR (Cockcroft-Gault) 97.5 BUN/Creatinine Ratio 23 (6-20) H Glucose Level 89 mg/dL (70-99) Calcium Level 9.3 mg/dL (8.5-10.1) Total Bilirubin 0.9 mg/dL (0.2-1.0) Aspartate Amino Transferase (AST) 26 U/L (15-37) Alanine Aminotransferase (ALT) 26 U/L (14-59) Alkaline Phosphatase 127 U/L (46-116) H Total Protein 7.9 g/dL (6.4-8.2) Albumin 3.7 g/dL (3.4-5.0) Albumin/Globulin Ratio 0.9 (1.0-1.7) L Current Medications: Meds: Current Medications Acetaminophen (Tylenol) 650 mg PRN Q6HRS PRN PO PAIN / TEMP; Start 05/11/18 at 04:15; Stop 05/11/18 at 07:18; Status DC Multi-Ingredient Ointment (Analgesic [place]) 1 shweta PRN QID PRN TP MUSCLE PAIN; Start 05/11/18 at 04:15 Al Hydroxide/Mg Hydroxide (Mylanta Plus Xs) 15 ml PRN AFTMEALHC PRN PO DYSPEPSIA; Start 05/11/18 at 04:15 Magnesium Hydroxide (Milk Of Magnesia) 2,400 mg PRN QHS PRN PO CONSTIPATION; Start 05/11/18 at 04:15 Olanzapine (ZyPREXA ZYDIS) 2.5 mg PRN Q2HR PRN PO PSYCHOSIS Last administered on 05/15/18at 13:29; Start 05/11/18 at 04:45 Memantine (Namenda) 5 mg TID PO Last administered on 05/13/18at 13:21; Start at 09:00; Stop 05/13/18 at 18:34; Status DC Acetaminophen (Tylenol) 650 mg Q4HRS PO ; Start 05/11/18 at 08:00; Stop at 08:00; Status DC Calcium Polycarbophil (Fibercon) 625 mg QHS PO Last administered on 05/18/18 19 :34; Start 05/11/18 at 21:00 Gabapentin (Neurontin) 200 mg TID PO Last administered on 05/18/18 19:35; Start 05/11/18 at 09:00 Potassium Chloride (Klor-Con) 20 meq BIDWMEALS PO Last administered on 17:00; Start 05/11/18 at 08:00 Amlodipine Besylate (Norvasc) 5 mg DAILY PO Last administered on 05/18/18 07:41 ; Start 05/11/18 at 09:00 Dicyclomine HCl (Bentyl) 20 mg QID PO Last administered on 05/18/18 19:34; Start 05/11/18 at 09:00 Non-Formulary Medication (Fluticasone/ Salmeterol (Advair Hfa 115-21 Mcg Inhaler )) 1 puff BID IH ; Start 05/11/18 at 09:00; Stop 05/11/18 at 09:00; Status DC Hydrocortisone (Proctosol-Hc) 1 shweta PRN QID PRN RC RECTAL PAIN; Start 05/11/18 at 07:30 Lactobacillus Rhamnosus (Culturelle) 1 cap BID PO Last administered on 19:34; Start 05/11/18 at 09:00 Loperamide HCl (Imodium) 2 mg PRN Q4HRS PRN PO DIARRHEA; Start 05/11/18 at 07: 30 Pantoprazole Sodium (Protonix) 40 mg DAILYAC PO Last administered on 05/18/18 07:41; Start 05/11/18 at 07:30 Ondansetron HCl (Zofran Odt) 4 mg PRN Q6HRS PRN PO NAUSEA/VOMITING; Start 05/11 at 07:30 Acetaminophen (Tylenol) 650 mg PRN Q4HRS PRN PO PAIN / TEMP Last administered on 05/14/18 12:34; Start 05/11/18 at 07:30 Albuterol Sulfate (Ventolin) 2.5 mg RTQID NEB Last administered on 05/18/18 20: 18; Start 05/11/18 at 08:00 Budesonide (Pulmicort) 0.5 mg RTBID NEB Last administered on 05/18/18 20:18; Start 05/11/18 at 08:00 Trazodone HCl (Desyrel) 50 mg PRN QHS PRN PO INSOMNIA Last administered on 23:42; Start 05/11/18 at 18:00 Sertraline HCl (Zoloft) 25 mg DAILY PO Last administered on 05/18/18 07:41; Start 05/12/18 at 09:00 Memantine (Namenda) 10 mg BID PO Last administered on 05/18/18 19:34; Start 05/13/18 at 21:00 Quetiapine Fumarate (SEROquel) 12.5 mg 0900,1700 PO Last administered on 17:16; Start 05/14/18 at 09:00; Stop 05/14/18 at 18:29; Status DC Quetiapine Fumarate (SEROquel) 12.5 mg 0900,1300,1700 PO Last administered on 17:19; Start 05/15/18 at 09:00; Stop 05/17/18 at 19:16; Status DC Quetiapine Fumarate (SEROquel) 12.5 mg 1300,1700 PO Last administered on 17:30; Start 05/18/18 at 13:00 Quetiapine Fumarate (SEROquel) 25 mg DAILY PO Last administered on 05/18/18at 07: 43; Start 05/18/18 at 09:00 Active Scripts Active Reported Preparation H (Hydrocortisone) 26 Gm Cream..g. 1 Applic [place] PRN QID PRN Dicyclomine Hcl 20 Mg Tablet 20 Mg PO QID Zofran (Ondansetron Hcl) 4 Mg Tablet 4 Mg PO PRN Q6HRS PRN Imodium A-D (Loperamide HCl) 2 Mg Capsule 2 Mg PO PRN Q4HRS PRN Tylenol (Acetaminophen) 325 Mg Tablet 650 Mg PO Q4HRS Fibercon (Calcium Polycarbophil) 625 Mg Tablet 625 Mg PO QHS Namenda Xr (Memantine Hcl) 21 Mg Cap.spr.24 21 Mg PO DAILY Acidophilus Lactobacillus (Lactobacillus Acidophilus) 1 Each Capsule 1 Each PO BID Omeprazole 20 Mg Capsule.dr 20 Mg PO DAILY Advair Hfa 115-21 Mcg Inhaler (Fluticasone/Salmeterol) 12 Gm Hfa.aer.ad 1 Puff IH BID Klor-Con M20 (Potassium Chloride) 20 Meq Tab.er.prt 20 Meq PO BID Gabapentin 100 Mg Capsule 200 Mg PO TID Amlodipine Besylate 5 Mg Tablet 5 Mg PO DAILY I have reviewed the current psychotropics carefully including drug interactions. Risk benefit ratio favors no change other than as noted in my dictated progress note. Diagnosis: Problems: (1) Anxiety disorder (2) Dementia in Alzheimer's disease with delusions (3) Dementia in Alzheimer's disease with depression (4) Dementia, vascular, with delusions (5) Dementia, vascular, with depression (6) Impulse control disorder RHODA ORTA MD May 18, 2018 22:33
[2018-05-19] MEDS: ALBUTEROL SULFATE 2.5 MG/3 ML NEBU. NEB SCH ×4 (05:10→20:26)
[2018-05-19 06:04] VITALS: BP 140/81
[2018-05-19] MEDS: POTASSIUM CHLORIDE 20 MEQ TABLET.ER. PO SCH ×2 (07:27→16:53)
[2018-05-19] MEDS: GABAPENTIN 100 MG CAPSULE. PO SCH ×3 (07:27→19:36)
[2018-05-19] MEDS: amLODIPine BESYLATE 5 MG TABLET PO SCH (07:27)
[2018-05-19] MEDS: QUEtiapine 25 MG TABLET. PO SCH ×3 (07:28→16:53)
[2018-05-19] MEDS: LACTOBACILLUS RHAMNOSUS GG 1 CAPSULE. PO SCH ×2 (07:28→19:36)
[2018-05-19] MEDS: MEMANTINE 10 MG TABLET. PO SCH ×2 (07:28→19:36)
[2018-05-19] MEDS: DICYCLOMINE HCL 20 MG TABLET PO SCH ×4 (07:28→19:36)
[2018-05-19] MEDS: PANTOPRAZOLE 40 MG TABLET. PO SCH (07:28)
[2018-05-19] MEDS: SERTRALINE 25 MG TABLET. PO SCH (07:28)
[2018-05-19] MEDS: BUDESONIDE 0.5 MG/2 ML NEBU NEB SCH ×2 (08:00→20:26)
--- NOTE | 2018-05-19 14:50 | RAD ---
Ribs left with PA chest History: Pain PA view of the chest and dedicated views of the left ribs were obtained. The lungs are hyperinflated. There is chronic reticular opacities of the lungs. The visualized osseous structures appear grossly intact. There is blunting of the left costophrenic angle. Impression: Possible tiny left effusion. No evidence of a bony displaced rib fracture. Electronically signed by: Kelvin Goff III, MD (05/19/2018 2:47 PM) [id number]
[2018-05-19 16:14] VITALS: BP 136/93
--- NOTE | 2018-05-19 19:14 | PN ---
DATE: 05/18/2018 This is a late entry 05/18/2018, covers elements not covered in my initial note. SUBJECTIVE: I met with the patient in the evening. The patient slept 6-1/2 hours previous evening and very confused. She removes her oxygen frequently and probably worsens her confusion. Appetite somewhat poor. UA showed mixed gabriel. We will repeat the UA due to her ongoing agitation, marked confusion and we will also check a CBC, CMP in the morning of 05/19/2018, due to her poor appetite. REVIEW OF SYSTEMS: Ambulation impaired, in wheelchair. No CV, , pulmonary, eye, ENT system symptoms on review. Reliability poor. MENTAL STATUS EXAM: Oriented to herself. Insight, judgment, recent and remote memory, attention, concentration, fund of knowledge poor, consistent with her diagnosis from initial note. PLAN: Continue psychotropics from initial note with changes noted above with labs in the morning of 05/19/2018. RHODA ORTA MD DR: WARREN/vanessa JOB#: [id number] / [id number]
[2018-05-19] MEDS: CALCIUM POLYCARBOPHIL 625 MG TABLET PO SCH (19:36)
--- NOTE | 2018-05-19 20:43 | PDOC ---
Exam Note: Aidan Note: Please also refer to the separate dictated note~for this date of service dictated separately.~Patient seen individually. Discussed the patient with Nursing staff reviewed the chart.~Reviewed interim history and current functioning. Reviewed vital signs,~Labs/ Radiology~and current medications noted below. Continue current treatment with the changes noted in the dictated addendum note Assessment: Vital Signs: Vital Signs Date Time Temp Pulse Resp B/P (MAP) Pulse Ox O2 Delivery O2 Flow Rate FiO2 05/19/18 20:25 96 Nasal Cannula 2.0 05/19/18 16:14 97.4 107 20 136/93 (107) I&O Intake and Output 05/19/18 06:59 Intake Total 710 ml Balance 710 ml Intake Oral 710 ml # Bowel Movements 1 Current Medications: Meds: Current Medications Acetaminophen (Tylenol) 650 mg PRN Q6HRS PRN PO PAIN / TEMP; Start 05/11/18 at 04:15; Stop 05/11/18 at 07:18; Status DC Multi-Ingredient Ointment (Analgesic [place]) 1 shweta PRN QID PRN TP MUSCLE PAIN; Start 05/11/18 at 04:15 Al Hydroxide/Mg Hydroxide (Mylanta Plus Xs) 15 ml PRN AFTMEALHC PRN PO DYSPEPSIA; Start 05/11/18 at 04:15 Magnesium Hydroxide (Milk Of Magnesia) 2,400 mg PRN QHS PRN PO CONSTIPATION; Start 05/11/18 at 04:15 Olanzapine (ZyPREXA ZYDIS) 2.5 mg PRN Q2HR PRN PO PSYCHOSIS Last administered on 05/15/18at 13:29; Start 05/11/18 at 04:45 Memantine (Namenda) 5 mg TID PO Last administered on 05/13/18at 13:21; Start at 09:00; Stop 05/13/18 at 18:34; Status DC Acetaminophen (Tylenol) 650 mg Q4HRS PO ; Start 05/11/18 at 08:00; Stop at 08:00; Status DC Calcium Polycarbophil (Fibercon) 625 mg QHS PO Last administered on 05/19/18at 19 :36; Start 05/11/18 at 21:00 Gabapentin (Neurontin) 200 mg TID PO Last administered on 7/8/18at 19:36; Start 05/11/18 at 09:00 Potassium Chloride (Klor-Con) 20 meq BIDWMEALS PO Last administered on 16:53; Start 05/11/18 at 08:00 Amlodipine Besylate (Norvasc) 5 mg DAILY PO Last administered on 05/19/18 07:27 ; Start 05/11/18 at 09:00 Dicyclomine HCl (Bentyl) 20 mg QID PO Last administered on 05/19/18 19:36; Start 05/11/18 at 09:00 Non-Formulary Medication (Fluticasone/ Salmeterol (Advair Hfa 115-21 Mcg Inhaler )) 1 puff BID IH ; Start 05/11/18 at 09:00; Stop 05/11/18 at 09:00; Status DC Hydrocortisone (Proctosol-Hc) 1 shweta PRN QID PRN RC RECTAL PAIN; Start 05/11/18 at 07:30 Lactobacillus Rhamnosus (Culturelle) 1 cap BID PO Last administered on 19:36; Start 05/11/18 at 09:00 Loperamide HCl (Imodium) 2 mg PRN Q4HRS PRN PO DIARRHEA; Start 05/11/18 at 07: 30 Pantoprazole Sodium (Protonix) 40 mg DAILYAC PO Last administered on 05/19/18 07:28; Start 05/11/18 at 07:30 Ondansetron HCl (Zofran Odt) 4 mg PRN Q6HRS PRN PO NAUSEA/VOMITING; Start 05/11 at 07:30 Acetaminophen (Tylenol) 650 mg PRN Q4HRS PRN PO PAIN / TEMP Last administered on 05/14/18 12:34; Start 05/11/18 at 07:30 Albuterol Sulfate (Ventolin) 2.5 mg RTQID NEB Last administered on 05/19/18 20: 26; Start 05/11/18 at 08:00 Budesonide (Pulmicort) 0.5 mg RTBID NEB Last administered on 05/19/18 20:26; Start 05/11/18 at 08:00 Trazodone HCl (Desyrel) 50 mg PRN QHS PRN PO INSOMNIA Last administered on 23:42; Start 05/11/18 at 18:00 Sertraline HCl (Zoloft) 25 mg DAILY PO Last administered on 05/19/18 07:28; Start 05/12/18 at 09:00 Memantine (Namenda) 10 mg BID PO Last administered on 05/19/18 19:36; Start 05/13/18 at 21:00 Quetiapine Fumarate (SEROquel) 12.5 mg 0900,1700 PO Last administered on 17:16; Start 05/14/18 at 09:00; Stop 05/14/18 at 18:29; Status DC Quetiapine Fumarate (SEROquel) 12.5 mg 0900,1300,1700 PO Last administered on 17:19; Start 05/15/18 at 09:00; Stop 05/17/18 at 19:16; Status DC Quetiapine Fumarate (SEROquel) 12.5 mg 1300,1700 PO Last administered on at 16:53; Start 05/18/18 at 13:00 Quetiapine Fumarate (SEROquel) 25 mg DAILY PO Last administered on 05/19/18 07: 28; Start 05/18/18 at 09:00 Active Scripts Active Reported Preparation H (Hydrocortisone) 26 Gm Cream..g. 1 Applic [place] PRN QID PRN Dicyclomine Hcl 20 Mg Tablet 20 Mg PO QID Zofran (Ondansetron Hcl) 4 Mg Tablet 4 Mg PO PRN Q6HRS PRN Imodium A-D (Loperamide HCl) 2 Mg Capsule 2 Mg PO PRN Q4HRS PRN Tylenol (Acetaminophen) 325 Mg Tablet 650 Mg PO Q4HRS Fibercon (Calcium Polycarbophil) 625 Mg Tablet 625 Mg PO QHS Namenda Xr (Memantine Hcl) 21 Mg Cap.spr.24 21 Mg PO DAILY Acidophilus Lactobacillus (Lactobacillus Acidophilus) 1 Each Capsule 1 Each PO BID Omeprazole 20 Mg Capsule.dr 20 Mg PO DAILY Advair Hfa 115-21 Mcg Inhaler (Fluticasone/Salmeterol) 12 Gm Hfa.aer.ad 1 Puff IH BID Klor-Con M20 (Potassium Chloride) 20 Meq Tab.er.prt 20 Meq PO BID Gabapentin 100 Mg Capsule 200 Mg PO TID Amlodipine Besylate 5 Mg Tablet 5 Mg PO DAILY I have reviewed the current psychotropics carefully including drug interactions. Risk benefit ratio favors no change other than as noted in my dictated progress note. Diagnosis: Problems: (1) Anxiety disorder (2) Dementia in Alzheimer's disease with delusions (3) Dementia in Alzheimer's disease with depression (4) Dementia, vascular, with delusions (5) Dementia, vascular, with depression (6) Impulse control disorder RHODA ORTA MD May 19, 2018 20:43
--- NOTE | 2018-05-19 23:24 | PN ---
DATE: 05/17/2018 This late entry 05/17/2018 covers elements not covered in my initial note 05/17/2018. SUBJECTIVE: I met with the patient in the evening. The patient slept 7 hours previous night. She has been extremely confused, removing the bandage from her hand, chewing her medications instead of swallowing it, putting herself on the floor. In the morning, she made statements she "might as well ." She was better in the evening as I met with her. She does worse with female staff members. REVIEW OF SYSTEMS: Ambulation impaired, in wheelchair. No CV, , pulmonary, eye, ENT system symptoms on review. Reliability poor. MENTAL STATUS EXAM: Oriented to herself. Insight, judgment, recent and remote memory, attention, concentration, fund of knowledge poor, consistent with her diagnosis mentioned in my initial note. PLAN: Increase 9:00 a.m. Seroquel to 25 mg. Continue rest unchanged per initial note. MAN Lyla ORTA MD DR: WARREN/vanessa JOB#: [id number] / [id number]
[2018-05-20] MEDS: ALBUTEROL SULFATE 2.5 MG/3 ML NEBU. NEB SCH ×4 (05:31→21:04)
[2018-05-20 06:04] VITALS: BP 139/74
[2018-05-20] MEDS: BUDESONIDE 0.5 MG/2 ML NEBU NEB SCH ×2 (08:00→21:04)
[2018-05-20 08:07] LABS: BACTERIA,URINE FEW /HPF (0-FEW); BILIRUBIN,URINE NEG (NEG); CLARITY,URINE CLEAR; COLOR,URINE YELLOW; GLUCOSE,URINE NEG (NEG); HYALINE CASTS, URINE OCC /HPF; NITRITE,URINE NEG (NEG); RBC,URINE RARE /HPF (0-2); SQUAMOUS EPITHELIAL CELL,UR FEW /LPF; UROBILINOGEN,URINE 1 mg/dL (0.2 mg/dL)
[2018-05-20] MEDS: MEMANTINE 10 MG TABLET. PO SCH ×2 (08:40→19:34)
[2018-05-20] MEDS: LACTOBACILLUS RHAMNOSUS GG 1 CAPSULE. PO SCH ×2 (08:40→19:34)
[2018-05-20] MEDS: POTASSIUM CHLORIDE 20 MEQ TABLET.ER. PO SCH ×2 (08:40→17:29)
[2018-05-20] MEDS: PANTOPRAZOLE 40 MG TABLET. PO SCH (08:40)
[2018-05-20] MEDS: DICYCLOMINE HCL 20 MG TABLET PO SCH ×4 (08:40→19:34)
[2018-05-20] MEDS: QUEtiapine 25 MG TABLET. PO SCH ×3 (08:41→17:29)
[2018-05-20] MEDS: SERTRALINE 25 MG TABLET. PO SCH (08:41)
[2018-05-20] MEDS: amLODIPine BESYLATE 5 MG TABLET PO SCH (08:41)
[2018-05-20] MEDS: GABAPENTIN 100 MG CAPSULE. PO SCH ×3 (08:41→19:33)
[2018-05-20] MEDS: ACETAMINOPHEN 325 MG TABLET PO PRN (10:00)
[2018-05-20] MEDS: CHOLECALCIFEROL (VITAMIN D3) 50,000 UNIT CAPSULE PO SCH (14:12)
[2018-05-20 16:03] VITALS: BP 127/73
[2018-05-20] MEDS: CALCIUM POLYCARBOPHIL 625 MG TABLET PO SCH (19:34)
--- NOTE | 2018-05-20 20:00 | PDOC ---
Exam Note: Aidan Note: Please also refer to the separate dictated note~for this date of service dictated separately.~Patient seen individually. Discussed the patient with Nursing staff reviewed the chart.~Reviewed interim history and current functioning. Reviewed vital signs,~Labs/ Radiology~and current medications noted below. Continue current treatment with the changes noted in the dictated addendum note Assessment: Vital Signs: Vital Signs Date Time Temp Pulse Resp B/P (MAP) Pulse Ox O2 Delivery O2 Flow Rate FiO2 05/20/18 16:29 90 Nasal Cannula 2.0 05/20/18 16:03 97.6 93 18 127/73 (91) I&O Intake and Output 05/20/18 06:59 Intake Total 845 ml Balance 845 ml Intake Oral 845 ml Labs: Laboratory Tests Test 05/20/18 07:35 Urine Collection Type Void Urine Color Yellow Urine Clarity Clear Urine pH 7.0 Urine Specific [place] 1.010 Urine Protein Neg (NEG-TRACE) Urine Glucose (UA) Neg mg/dL (NEG) Urine Ketones (Stick) Neg mg/dL (NEG) Urine Blood Neg (NEG) Urine Nitrite Neg (NEG) Urine Bilirubin Neg (NEG) Urine Urobilinogen Dipstick 1 mg/dL (0.2 mg/dL) Urine Leukocyte Esterase Neg (NEG) Urine RBC Rare /HPF (0-2) Urine WBC 5-10 /HPF (0-4) Urine Squamous Epithelial Cells Few /LPF Urine Bacteria Few /HPF (0-FEW) Urine Hyaline Casts Occ /HPF Urine Mucus Slight /LPF Current Medications: Meds: Current Medications Acetaminophen (Tylenol) 650 mg PRN Q6HRS PRN PO PAIN / TEMP; Start 05/11/18 at 04:15; Stop 05/11/18 at 07:18; Status DC Multi-Ingredient Ointment (Analgesic [place]) 1 shweta PRN QID PRN TP MUSCLE PAIN; Start 05/11/18 at 04:15 Al Hydroxide/Mg Hydroxide (Mylanta Plus Xs) 15 ml PRN AFTMEALHC PRN PO DYSPEPSIA; Start 05/11/18 at 04:15 Magnesium Hydroxide (Milk Of Magnesia) 2,400 mg PRN QHS PRN PO CONSTIPATION; Start 05/11/18 at 04:15 Olanzapine (ZyPREXA ZYDIS) 2.5 mg PRN Q2HR PRN PO PSYCHOSIS Last administered on 05/15/18 13:29; Start 05/11/18 at 04:45 Memantine (Namenda) 5 mg TID PO Last administered on 05/13/18 13:21; Start at 09:00; Stop 05/13/18 at 18:34; Status DC Acetaminophen (Tylenol) 650 mg Q4HRS PO ; Start 05/11/18 at 08:00; Stop at 08:00; Status DC Calcium Polycarbophil (Fibercon) 625 mg QHS PO Last administered on 05/20/18 19 :34; Start 05/11/18 at 21:00 Gabapentin (Neurontin) 200 mg TID PO Last administered on 05/20/18 19:33; Start 05/11/18 at 09:00 Potassium Chloride (Klor-Con) 20 meq BIDWMEALS PO Last administered on 17:29; Start 05/11/18 at 08:00 Amlodipine Besylate (Norvasc) 5 mg DAILY PO Last administered on 05/20/18 08:41 ; Start 05/11/18 at 09:00 Dicyclomine HCl (Bentyl) 20 mg QID PO Last administered on 05/20/18 19:34; Start 05/11/18 at 09:00 Non-Formulary Medication (Fluticasone/ Salmeterol (Advair Hfa 115-21 Mcg Inhaler )) 1 puff BID IH ; Start 05/11/18 at 09:00; Stop 05/11/18 at 09:00; Status DC Hydrocortisone (Proctosol-Hc) 1 shweta PRN QID PRN RC RECTAL PAIN; Start 05/11/18 at 07:30 Lactobacillus Rhamnosus (Culturelle) 1 cap BID PO Last administered on 19:34; Start 05/11/18 at 09:00 Loperamide HCl (Imodium) 2 mg PRN Q4HRS PRN PO DIARRHEA; Start 05/11/18 at 07: 30 Pantoprazole Sodium (Protonix) 40 mg DAILYAC PO Last administered on 05/20/18 08:40; Start 05/11/18 at 07:30 Ondansetron HCl (Zofran Odt) 4 mg PRN Q6HRS PRN PO NAUSEA/VOMITING; Start 05/11 at 07:30 Acetaminophen (Tylenol) 650 mg PRN Q4HRS PRN PO PAIN / TEMP Last administered on 05/20/18 10:00; Start 05/11/18 at 07:30 Albuterol Sulfate (Ventolin) 2.5 mg RTQID NEB Last administered on 05/20/18 16: 29; Start 05/11/18 at 08:00 Budesonide (Pulmicort) 0.5 mg RTBID NEB Last administered on 05/20/18 08:00; Start 05/11/18 at 08:00 Trazodone HCl (Desyrel) 50 mg PRN QHS PRN PO INSOMNIA Last administered on 23:42; Start 05/11/18 at 18:00 Sertraline HCl (Zoloft) 25 mg DAILY PO Last administered on 05/20/18 08:41; Start 05/12/18 at 09:00; Stop 05/20/18 at 19:13; Status DC Memantine (Namenda) 10 mg BID PO Last administered on 05/20/18 19:34; Start 05/13/18 at 21:00 Quetiapine Fumarate (SEROquel) 12.5 mg 0900,1700 PO Last administered on 17:16; Start 05/14/18 at 09:00; Stop 05/14/18 at 18:29; Status DC Quetiapine Fumarate (SEROquel) 12.5 mg 0900,1300,1700 PO Last administered on 17:19; Start 05/15/18 at 09:00; Stop 05/17/18 at 19:16; Status DC Quetiapine Fumarate (SEROquel) 12.5 mg 1300,1700 PO Last administered on 17:29; Start 05/18/18 at 13:00 Quetiapine Fumarate (SEROquel) 25 mg DAILY PO Last administered on 05/20/18 08: 41; Start 05/18/18 at 09:00 Vitamin D (Vitamin D3) 50,000 unit WEEKLY PO Last administered on 05/20/18 14: 12; Start 05/20/18 at 13:45 Sertraline HCl (Zoloft) 50 mg DAILY PO ; Start 05/21/18 at 09:00 Active Scripts Active Reported Preparation H (Hydrocortisone) 26 Gm Cream..g. 1 Applic [place] PRN QID PRN Dicyclomine Hcl 20 Mg Tablet 20 Mg PO QID Zofran (Ondansetron Hcl) 4 Mg Tablet 4 Mg PO PRN Q6HRS PRN Imodium A-D (Loperamide HCl) 2 Mg Capsule 2 Mg PO PRN Q4HRS PRN Tylenol (Acetaminophen) 325 Mg Tablet 650 Mg PO Q4HRS Fibercon (Calcium Polycarbophil) 625 Mg Tablet 625 Mg PO QHS Namenda Xr (Memantine Hcl) 21 Mg Cap.spr.24 21 Mg PO DAILY Acidophilus Lactobacillus (Lactobacillus Acidophilus) 1 Each Capsule 1 Each PO BID Omeprazole 20 Mg Capsule.dr 20 Mg PO DAILY Advair Hfa 115-21 Mcg Inhaler (Fluticasone/Salmeterol) 12 Gm Hfa.aer.ad 1 Puff IH BID Klor-Con M20 (Potassium Chloride) 20 Meq Tab.er.prt 20 Meq PO BID Gabapentin 100 Mg Capsule 200 Mg PO TID Amlodipine Besylate 5 Mg Tablet 5 Mg PO DAILY I have reviewed the current psychotropics carefully including drug interactions. Risk benefit ratio favors no change other than as noted in my dictated progress note. Diagnosis: Problems: (1) Anxiety disorder (2) Dementia in Alzheimer's disease with delusions (3) Dementia in Alzheimer's disease with depression (4) Dementia, vascular, with delusions (5) Dementia, vascular, with depression (6) Impulse control disorder RHODA ORTA MD May 20, 2018 19:59
--- NOTE | 2018-05-20 22:51 | PN ---
DATE: 05/19/2018 PSYCHIATRIC PROGRESS NOTE This is a late entry 05/19/2018, covers elements not covered in my initial note. SUBJECTIVE: I met with the patient in the evening. The patient slept 6 hours previous evening, had a fall the previous night. X-ray was negative. She is somewhat delusional, states she was beat up at night, but by the morning she was better. Refused medications once. The results of the UA is awaited since UTI could be worsening her agitation. REVIEW OF SYSTEMS: Ambulation impaired, in wheelchair. No CV, , pulmonary, eye, ENT system symptoms on review. MENTAL STATUS EXAM: Oriented to herself, constantly moving up and down, distractible, pulling on her bandage. Insight, judgment, recent and remote memory, attention, concentration, fund of knowledge poor, consistent with her diagnoses mentioned in my initial note. PLAN: Check UA results and treat if indicated. Continue rest unchanged. RHODA ORTA MD DR: WARREN/vanessa JOB#: [id number] / [id number]
[2018-05-21] MEDS: ALBUTEROL SULFATE 2.5 MG/3 ML NEBU. NEB SCH ×4 (04:22→20:58)
[2018-05-21 06:09] VITALS: BP 141/83
[2018-05-21] MEDS: BUDESONIDE 0.5 MG/2 ML NEBU NEB SCH ×2 (08:00→20:58)
[2018-05-21] MEDS: DICYCLOMINE HCL 20 MG TABLET PO SCH ×4 (08:27→19:17)
[2018-05-21] MEDS: LACTOBACILLUS RHAMNOSUS GG 1 CAPSULE. PO SCH ×2 (08:27→19:17)
[2018-05-21] MEDS: POTASSIUM CHLORIDE 20 MEQ TABLET.ER. PO SCH ×2 (08:27→17:07)
[2018-05-21] MEDS: MEMANTINE 10 MG TABLET. PO SCH ×2 (08:28→19:17)
[2018-05-21] MEDS: QUEtiapine 25 MG TABLET. PO SCH ×3 (08:28→17:07)
[2018-05-21] MEDS: PANTOPRAZOLE 40 MG TABLET. PO SCH (08:28)
[2018-05-21] MEDS: amLODIPine BESYLATE 5 MG TABLET PO SCH (08:28)
[2018-05-21] MEDS: SERTRALINE 50 MG TABLET. PO SCH (08:29)
[2018-05-21] MEDS: GABAPENTIN 100 MG CAPSULE. PO SCH ×3 (08:32→19:19)
[2018-05-21] MEDS: ACETAMINOPHEN 325 MG TABLET PO PRN (09:20)
[2018-05-21 16:15] VITALS: BP 153/85
[2018-05-21] MEDS: CALCIUM POLYCARBOPHIL 625 MG TABLET PO SCH (19:17)
[2018-05-21 20:15] LABS: BASO % 0 % (0-3); EOS # 0.1 x10^3/uL (0.0-0.7); EOS % 1 % (0-3); HEMATOCRIT 35.3 % (36.0-47.0); HEMOGLOBIN 11.7 g/dL (12.0-15.5); LYMPH # 0.4 x10^3/uL (1.0-4.8); LYMPH % 4 % (24-48); MEAN CORPUSCULAR HEMOGLOBIN 29 pg (25-35); MEAN CORPUSCULAR HGB CONC 33 g/dL (31-37); MEAN CORPUSCULAR VOLUME 88 fL (79-100); MONO # 0.8 x10^3/uL (0.0-1.1); MONO % 8 % (0-9); NEUT # 8.8 x10^3uL (1.8-7.7); NEUT % 88 % (31-73); PLATELET COUNT 204 x10^3/uL (140-400); RED BLOOD COUNT 4.01 x10^6/uL (3.50-5.40)
[2018-05-21 20:16] LABS: ALBUMIN 3.4 g/dL (3.4-5.0); ALBUMIN/GLOBULIN RATIO 0.9 (1.0-1.7); CALCIUM 9.2 mg/dL (8.5-10.1); CREATININE 0.7 mg/dL (0.6-1.0); GFR 81.6; POTASSIUM 4.3 mmol/L (3.5-5.1); TOTAL BILIRUBIN 0.8 mg/dL (0.2-1.0); TOTAL PROTEIN 7.3 g/dL (6.4-8.2)
--- NOTE | 2018-05-21 21:41 | PDOC ---
Exam Note: Aidan Note: Please also refer to the separate dictated note~for this date of service dictated separately.~Patient seen individually. Discussed the patient with Nursing staff reviewed the chart.~Reviewed interim history and current functioning. Reviewed vital signs,~Labs/ Radiology~and current medications noted below. Continue current treatment with the changes noted in the dictated addendum note Assessment: Vital Signs: Vital Signs Date Time Temp Pulse Resp B/P (MAP) Pulse Ox O2 Delivery O2 Flow Rate FiO2 05/21/18 21:03 98 Nasal Cannula 2.0 05/21/18 16:15 97.7 107 20 153/85 (107) I&O Intake and Output 05/21/18 07:00 Intake Total 605 ml Balance 605 ml Intake Oral 605 ml Labs: Laboratory Tests Test 05/21/18 19:55 White Blood Count 10.0 x10^3/uL (4.0-11.0) Red Blood Count 4.01 x10^6/uL (3.50-5.40) Hemoglobin 11.7 g/dL (12.0-15.5) L Hematocrit 35.3 % (36.0-47.0) L Mean Corpuscular Volume 88 fL (79-100) Mean Corpuscular Hemoglobin 29 pg (25-35) Mean Corpuscular Hemoglobin Concent 33 g/dL (31-37) Red Cell Distribution Width 17.0 % (11.5-14.5) H Platelet Count 204 x10^3/uL (140-400) Neutrophils (%) (Auto) 88 % (31-73) H Lymphocytes (%) (Auto) 4 % (24-48) L Monocytes (%) (Auto) 8 % (0-9) Eosinophils (%) (Auto) 1 % (0-3) Basophils (%) (Auto) 0 % (0-3) Neutrophils # (Auto) 8.8 x10^3uL (1.8-7.7) H Lymphocytes # (Auto) 0.4 x10^3/uL (1.0-4.8) L Monocytes # (Auto) 0.8 x10^3/uL (0.0-1.1) Eosinophils # (Auto) 0.1 x10^3/uL (0.0-0.7) Basophils # (Auto) 0.0 x10^3/uL (0.0-0.2) Sodium Level 140 mmol/L (136-145) Potassium Level 4.3 mmol/L (3.5-5.1) Chloride Level 103 mmol/L (98-107) Carbon Dioxide Level 33 mmol/L (21-32) H Anion Gap 4 (6-14) L Blood Urea Nitrogen 18 mg/dL (7-20) Creatinine 0.7 mg/dL (0.6-1.0) Estimated GFR (Cockcroft-Gault) 81.6 BUN/Creatinine Ratio 26 (6-20) H Glucose Level 117 mg/dL (70-99) H Calcium Level 9.2 mg/dL (8.5-10.1) Total Bilirubin 0.8 mg/dL (0.2-1.0) Aspartate Amino Transferase (AST) 22 U/L (15-37) Alanine Aminotransferase (ALT) 21 U/L (14-59) Alkaline Phosphatase 120 U/L (46-116) H Total Protein 7.3 g/dL (6.4-8.2) Albumin 3.4 g/dL (3.4-5.0) Albumin/Globulin Ratio 0.9 (1.0-1.7) L Current Medications: Meds: Current Medications Acetaminophen (Tylenol) 650 mg PRN Q6HRS PRN PO PAIN / TEMP; Start 05/11/18 at 04:15; Stop 05/11/18 at 07:18; Status DC Multi-Ingredient Ointment (Analgesic [place]) 1 shweta PRN QID PRN TP MUSCLE PAIN; Start 05/11/18 at 04:15 Al Hydroxide/Mg Hydroxide (Mylanta Plus Xs) 15 ml PRN AFTMEALHC PRN PO DYSPEPSIA; Start 05/11/18 at 04:15 Magnesium Hydroxide (Milk Of Magnesia) 2,400 mg PRN QHS PRN PO CONSTIPATION; Start 05/11/18 at 04:15 Olanzapine (ZyPREXA ZYDIS) 2.5 mg PRN Q2HR PRN PO PSYCHOSIS Last administered on 05/21/18at 12:41; Start 05/11/18 at 04:45 Memantine (Namenda) 5 mg TID PO Last administered on 05/13/18at 13:21; Start at 09:00; Stop 05/13/18 at 18:34; Status DC Acetaminophen (Tylenol) 650 mg Q4HRS PO ; Start 05/11/18 at 08:00; Stop at 08:00; Status DC Calcium Polycarbophil (Fibercon) 625 mg QHS PO Last administered on 05/21/18 19:17; Start 05/11/18 at 21:00 Gabapentin (Neurontin) 200 mg TID PO Last administered on 05/21/18 19:19; Start 05/11/18 at 09:00 Potassium Chloride (Klor-Con) 20 meq BIDWMEALS PO Last administered on 17:07; Start 05/11/18 at 08:00 Amlodipine Besylate (Norvasc) 5 mg DAILY PO Last administered on 05/21/18 08: 28; Start 05/11/18 at 09:00 Dicyclomine HCl (Bentyl) 20 mg QID PO Last administered on 05/21/18 19:17; Start 05/11/18 at 09:00 Non-Formulary Medication (Fluticasone/ Salmeterol (Advair Hfa 115-21 Mcg Inhaler )) 1 puff BID IH ; Start 05/11/18 at 09:00; Stop 05/11/18 at 09:00; Status DC Hydrocortisone (Proctosol-Hc) 1 shweta PRN QID PRN RC RECTAL PAIN; Start 05/11/18 at 07:30 Lactobacillus Rhamnosus (Culturelle) 1 cap BID PO Last administered on 19:17; Start 05/11/18 at 09:00 Loperamide HCl (Imodium) 2 mg PRN Q4HRS PRN PO DIARRHEA; Start 05/11/18 at 07: 30 Pantoprazole Sodium (Protonix) 40 mg DAILYAC PO Last administered on 05/21/18 08:28; Start 05/11/18 at 07:30 Ondansetron HCl (Zofran Odt) 4 mg PRN Q6HRS PRN PO NAUSEA/VOMITING; Start 05/11 at 07:30 Acetaminophen (Tylenol) 650 mg PRN Q4HRS PRN PO PAIN / TEMP Last administered on 05/21/18at 09:20; Start 05/11/18 at 07:30 Albuterol Sulfate (Ventolin) 2.5 mg RTQID NEB Last administered on 05/21/18 20 :58; Start 05/11/18 at 08:00 Budesonide (Pulmicort) 0.5 mg RTBID NEB Last administered on 05/21/18 20:58; Start 05/11/18 at 08:00 Trazodone HCl (Desyrel) 50 mg PRN QHS PRN PO INSOMNIA Last administered on 23:42; Start 05/11/18 at 18:00 Sertraline HCl (Zoloft) 25 mg DAILY PO Last administered on 05/20/18 08:41; Start 05/12/18 at 09:00; Stop 05/20/18 at 19:13; Status DC Memantine (Namenda) 10 mg BID PO Last administered on 05/21/18 19:17; Start at 21:00 Quetiapine Fumarate (SEROquel) 12.5 mg 0900,1700 PO Last administered on 17:16; Start 05/14/18 at 09:00; Stop 05/14/18 at 18:29; Status DC Quetiapine Fumarate (SEROquel) 12.5 mg 0900,1300,1700 PO Last administered on 17:19; Start 05/15/18 at 09:00; Stop 05/17/18 at 19:16; Status DC Quetiapine Fumarate (SEROquel) 12.5 mg 1300,1700 PO Last administered on 17:07; Start 05/18/18 at 13:00 Quetiapine Fumarate (SEROquel) 25 mg DAILY PO Last administered on 05/21/18 08 :28; Start 05/18/18 at 09:00 Vitamin D (Vitamin D3) 50,000 unit WEEKLY PO Last administered on 05/20/18 14: 12; Start 05/20/18 at 13:45 Sertraline HCl (Zoloft) 50 mg DAILY PO Last administered on 05/21/18 08:29; Start 05/21/18 at 09:00 Active Scripts Active Reported Preparation H (Hydrocortisone) 26 Gm Cream..g. 1 Applic [place] PRN QID PRN Dicyclomine Hcl 20 Mg Tablet 20 Mg PO QID Zofran (Ondansetron Hcl) 4 Mg Tablet 4 Mg PO PRN Q6HRS PRN Imodium A-D (Loperamide HCl) 2 Mg Capsule 2 Mg PO PRN Q4HRS PRN Tylenol (Acetaminophen) 325 Mg Tablet 650 Mg PO Q4HRS Fibercon (Calcium Polycarbophil) 625 Mg Tablet 625 Mg PO QHS Namenda Xr (Memantine Hcl) 21 Mg Cap.spr.24 21 Mg PO DAILY Acidophilus Lactobacillus (Lactobacillus Acidophilus) 1 Each Capsule 1 Each PO BID Omeprazole 20 Mg Capsule.dr 20 Mg PO DAILY Advair Hfa 115-21 Mcg Inhaler (Fluticasone/Salmeterol) 12 Gm Hfa.aer.ad 1 Puff IH BID Klor-Con M20 (Potassium Chloride) 20 Meq Tab.er.prt 20 Meq PO BID Gabapentin 100 Mg Capsule 200 Mg PO TID Amlodipine Besylate 5 Mg Tablet 5 Mg PO DAILY I have reviewed the current psychotropics carefully including drug interactions. Risk benefit ratio favors no change other than as noted in my dictated progress note. Diagnosis: Problems: (1) Anxiety disorder (2) Dementia in Alzheimer's disease with delusions (3) Dementia in Alzheimer's disease with depression (4) Dementia, vascular, with delusions (5) Dementia, vascular, with depression (6) Impulse control disorder RHODA ORTA MD May 21, 2018 21:41
--- NOTE | 2018-05-22 01:19 | PN ---
DATE: 05/20/2018 PSYCHIATRIC PROGRESS NOTE This is a late entry 05/20/2018 covers elements not covered in my initial note. SUBJECTIVE: I met with the patient in the evening. The patient slept 7-1/2 hours previous evening. She remains confused, anxious, restless. REVIEW OF SYSTEMS: Ambulation impaired, in wheelchair. No CV, , pulmonary, eye, ENT system symptoms on review. MENTAL STATUS EXAM: Oriented to herself. Insight, judgment, recent and remote memory, attention, concentration, fund of knowledge poor, consistent with her diagnosis mentioned in my initial note. IMPRESSION: Major neurocognitive disorder, Alzheimer, vascular with delusion, depression, behavioral disturbance. Rest unchanged. PLAN: Increase Zoloft to 50 mg a day. Continue Seroquel at current dosage. May need to increase gradually or add Depakote as a mood stabilizer. MAN Lyla ORTA MD DR: WARREN/vanessa JOB#: [id number] / [id number]
[2018-05-22] MEDS: ALBUTEROL SULFATE 2.5 MG/3 ML NEBU. NEB SCH ×4 (05:18→19:54)
[2018-05-22] MEDS: BUDESONIDE 0.5 MG/2 ML NEBU NEB SCH ×2 (05:18→19:54)
[2018-05-22 06:14] VITALS: BP 149/79
[2018-05-22] MEDS: QUEtiapine 25 MG TABLET. PO SCH ×3 (09:16→17:16)
[2018-05-22] MEDS: LACTOBACILLUS RHAMNOSUS GG 1 CAPSULE. PO SCH ×2 (09:16→19:57)
[2018-05-22] MEDS: MEMANTINE 10 MG TABLET. PO SCH ×2 (09:16→19:57)
[2018-05-22] MEDS: POTASSIUM CHLORIDE 20 MEQ TABLET.ER. PO SCH ×2 (09:16→17:16)
[2018-05-22] MEDS: PANTOPRAZOLE 40 MG TABLET. PO SCH (09:16)
[2018-05-22] MEDS: amLODIPine BESYLATE 5 MG TABLET PO SCH (09:17)
[2018-05-22] MEDS: DICYCLOMINE HCL 20 MG TABLET PO SCH ×4 (09:17→19:57)
[2018-05-22] MEDS: SERTRALINE 50 MG TABLET. PO SCH (09:17)
[2018-05-22] MEDS: GABAPENTIN 100 MG CAPSULE. PO SCH ×3 (09:17→19:57)
[2018-05-22] MEDS: ACETAMINOPHEN 325 MG TABLET PO PRN (09:42)
--- NOTE | 2018-05-22 13:30 | PN ---
DATE: 05/21/2018 PSYCHIATRIC PROGRESS NOTE This late entry 12/29/2017 covers elements not covered in my initial note. SUBJECTIVE: Met with the patient in the evening. The patient slept 6-1/4 hours previous evening. She has been anxious, restless, taking off her oxygen repeatedly, O2 sats seemed to drop somewhat. Per nursing report, she is looking somewhat corado and defer medical management to Dr. Armas. She has had some bleeding from her hand, which was dressed, took her medications at lunch, but was yelling, received Zyprexa at 12:40 to help agitation. We will check CBC, CMP in morning of 05/22/2018 to assess dehydration. REVIEW OF SYSTEMS: Ambulation is impaired, in wheelchair, difficulty with breathing. No CV, , GI, eye system symptoms on review. Reliability poor. MENTAL STATUS EXAM: Oriented to herself. Insight, judgment, recent, remote memory, attention, concentration, fund of knowledge is poor, consistent with her diagnoses mentioned in my initial note. IMPRESSION: Major neurocognitive disorder, Alzheimer, vascular with delusion, depression, behavioral disturbance. PLAN: Check CBC, CMP on 05/22/2018. Continue rest unchanged from initial note. MAN Lyla ORTA MD DR: WARREN/vanessa JOB#: [id number] / [id number]
[2018-05-22] MEDS ORDERED: HYDROcodone/APAP 5/325MG 1 TAB TABLET PO PRN (14:00)
[2018-05-22 16:33] VITALS: BP 105/64
[2018-05-22] MEDS: CALCIUM POLYCARBOPHIL 625 MG TABLET PO SCH (19:57)
--- NOTE | 2018-05-22 21:00 | PDOC ---
Exam Note: Aidan Note: Please also refer to the separate dictated note~for this date of service dictated separately.~Patient seen individually. Discussed the patient with Nursing staff reviewed the chart.~Reviewed interim history and current functioning. Reviewed vital signs,~Labs/ Radiology~and current medications noted below. Continue current treatment with the changes noted in the dictated addendum note Assessment: Vital Signs: Vital Signs Date Time Temp Pulse Resp B/P (MAP) Pulse Ox O2 Delivery O2 Flow Rate FiO2 05/22/18 19:55 90 Nasal Cannula 2.0 05/22/18 16:33 98.3 106 16 105/64 (78) I&O Intake and Output 05/22/18 06:59 Intake Total 360 ml Balance 360 ml Intake Oral 360 ml Current Medications: Meds: Current Medications Acetaminophen (Tylenol) 650 mg PRN Q6HRS PRN PO PAIN / TEMP; Start 05/11/18 at 04:15; Stop 05/11/18 at 07:18; Status DC Multi-Ingredient Ointment (Analgesic [place]) 1 shweta PRN QID PRN TP MUSCLE PAIN; Start 05/11/18 at 04:15 Al Hydroxide/Mg Hydroxide (Mylanta Plus Xs) 15 ml PRN AFTMEALHC PRN PO DYSPEPSIA; Start 05/11/18 at 04:15 Magnesium Hydroxide (Milk Of Magnesia) 2,400 mg PRN QHS PRN PO CONSTIPATION; Start 05/11/18 at 04:15 Olanzapine (ZyPREXA ZYDIS) 2.5 mg PRN Q2HR PRN PO PSYCHOSIS Last administered on 05/21/18at 12:41; Start 05/11/18 at 04:45 Memantine (Namenda) 5 mg TID PO Last administered on 05/13/18at 13:21; Start at 09:00; Stop 05/13/18 at 18:34; Status DC Acetaminophen (Tylenol) 650 mg Q4HRS PO ; Start 05/11/18 at 08:00; Stop at 08:00; Status DC Calcium Polycarbophil (Fibercon) 625 mg QHS PO Last administered on 05/22/18at 19:57; Start 05/11/18 at 21:00 Gabapentin (Neurontin) 200 mg TID PO Last administered on 05/22/18at 19:57; Start 05/11/18 at 09:00 Potassium Chloride (Klor-Con) 20 meq BIDWMEALS PO Last administered on 17:16; Start 05/11/18 at 08:00 Amlodipine Besylate (Norvasc) 5 mg DAILY PO Last administered on 05/22/18 09: 17; Start 05/11/18 at 09:00 Dicyclomine HCl (Bentyl) 20 mg QID PO Last administered on 05/22/18 19:57; Start 05/11/18 at 09:00 Non-Formulary Medication (Fluticasone/ Salmeterol (Advair Hfa 115-21 Mcg Inhaler )) 1 puff BID IH ; Start 05/11/18 at 09:00; Stop 05/11/18 at 09:00; Status DC Hydrocortisone (Proctosol-Hc) 1 shweta PRN QID PRN RC RECTAL PAIN; Start 05/11/18 at 07:30 Lactobacillus Rhamnosus (Culturelle) 1 cap BID PO Last administered on 19:57; Start 05/11/18 at 09:00 Loperamide HCl (Imodium) 2 mg PRN Q4HRS PRN PO DIARRHEA; Start 05/11/18 at 07: 30 Pantoprazole Sodium (Protonix) 40 mg DAILYAC PO Last administered on 05/22/18 09:16; Start 05/11/18 at 07:30 Ondansetron HCl (Zofran Odt) 4 mg PRN Q6HRS PRN PO NAUSEA/VOMITING; Start 05/11 at 07:30 Acetaminophen (Tylenol) 650 mg PRN Q4HRS PRN PO PAIN / TEMP Last administered on 05/22/18 09:42; Start 05/11/18 at 07:30 Albuterol Sulfate (Ventolin) 2.5 mg RTQID NEB Last administered on 05/22/18 19 :54; Start 05/11/18 at 08:00 Budesonide (Pulmicort) 0.5 mg RTBID NEB Last administered on 05/22/18 19:54; Start 05/11/18 at 08:00 Trazodone HCl (Desyrel) 50 mg PRN QHS PRN PO INSOMNIA Last administered on 7/2/ 18at 23:42; Start 05/11/18 at 18:00 Sertraline HCl (Zoloft) 25 mg DAILY PO Last administered on 05/20/18 08:41; Start 05/12/18 at 09:00; Stop 05/20/18 at 19:13; Status DC Memantine (Namenda) 10 mg BID PO Last administered on 05/22/18at 19:57; Start at 21:00 Quetiapine Fumarate (SEROquel) 12.5 mg 0900,1700 PO Last administered on 17:16; Start 05/14/18 at 09:00; Stop 05/14/18 at 18:29; Status DC Quetiapine Fumarate (SEROquel) 12.5 mg 0900,1300,1700 PO Last administered on 17:19; Start 05/15/18 at 09:00; Stop 05/17/18 at 19:16; Status DC Quetiapine Fumarate (SEROquel) 12.5 mg 1300,1700 PO Last administered on at 17:16; Start 05/18/18 at 13:00 Quetiapine Fumarate (SEROquel) 25 mg DAILY PO Last administered on 05/22/18 09 :16; Start 05/18/18 at 09:00 Vitamin D (Vitamin D3) 50,000 unit WEEKLY PO Last administered on 05/20/18at 14: 12; Start 05/20/18 at 13:45 Sertraline HCl (Zoloft) 50 mg DAILY PO Last administered on 05/22/18at 09:17; Start 05/21/18 at 09:00 Acetaminophen/ Hydrocodone Bitart (Lortab 5/325) 1 tab PRN Q6HRS PRN PO PAIN; Start 05/22/18 at 14:00 Active Scripts Active Reported Preparation H (Hydrocortisone) 26 Gm Cream..g. 1 Applic [place] PRN QID PRN Dicyclomine Hcl 20 Mg Tablet 20 Mg PO QID Zofran (Ondansetron Hcl) 4 Mg Tablet 4 Mg PO PRN Q6HRS PRN Imodium A-D (Loperamide HCl) 2 Mg Capsule 2 Mg PO PRN Q4HRS PRN Tylenol (Acetaminophen) 325 Mg Tablet 650 Mg PO Q4HRS Fibercon (Calcium Polycarbophil) 625 Mg Tablet 625 Mg PO QHS Namenda Xr (Memantine Hcl) 21 Mg Cap.spr.24 21 Mg PO DAILY Acidophilus Lactobacillus (Lactobacillus Acidophilus) 1 Each Capsule 1 Each PO BID Omeprazole 20 Mg Capsule.dr 20 Mg PO DAILY Advair Hfa 115-21 Mcg Inhaler (Fluticasone/Salmeterol) 12 Gm Hfa.aer.ad 1 Puff IH BID Klor-Con M20 (Potassium Chloride) 20 Meq Tab.er.prt 20 Meq PO BID Gabapentin 100 Mg Capsule 200 Mg PO TID Amlodipine Besylate 5 Mg Tablet 5 Mg PO DAILY I have reviewed the current psychotropics carefully including drug interactions. Risk benefit ratio favors no change other than as noted in my dictated progress note. Diagnosis: Problems: (1) Anxiety disorder (2) Dementia in Alzheimer's disease with delusions (3) Dementia in Alzheimer's disease with depression (4) Dementia, vascular, with delusions (5) Dementia, vascular, with depression (6) Impulse control disorder RHODA ORTA MD May 22, 2018 21:00
[2018-05-23] MEDS: ALBUTEROL SULFATE 2.5 MG/3 ML NEBU. NEB SCH ×4 (04:55→20:44)
[2018-05-23 06:33] VITALS: BP 145/74
[2018-05-23] MEDS: GABAPENTIN 100 MG CAPSULE. PO SCH ×3 (08:05→19:47)
[2018-05-23] MEDS: DICYCLOMINE HCL 20 MG TABLET PO SCH ×4 (08:05→19:47)
[2018-05-23] MEDS: amLODIPine BESYLATE 5 MG TABLET PO SCH (08:05)
[2018-05-23] MEDS: SERTRALINE 50 MG TABLET. PO SCH (08:05)
[2018-05-23] MEDS: PANTOPRAZOLE 40 MG TABLET. PO SCH (08:05)
[2018-05-23] MEDS: LACTOBACILLUS RHAMNOSUS GG 1 CAPSULE. PO SCH ×2 (08:05→19:47)
[2018-05-23] MEDS: QUEtiapine 25 MG TABLET. PO SCH ×3 (08:06→17:25)
[2018-05-23] MEDS: POTASSIUM CHLORIDE 20 MEQ TABLET.ER. PO SCH ×2 (08:06→17:25)
[2018-05-23] MEDS: MEMANTINE 10 MG TABLET. PO SCH ×2 (08:06→19:47)
[2018-05-23] MEDS: BUDESONIDE 0.5 MG/2 ML NEBU NEB SCH ×2 (11:16→20:44)
[2018-05-23] MEDS: CALCIUM POLYCARBOPHIL 625 MG TABLET PO SCH (19:47)
--- NOTE | 2018-05-23 20:58 | PDOC ---
Exam Note: Aidan Note: Please also refer to the separate dictated note~for this date of service dictated separately.~Patient seen individually. Discussed the patient with Nursing staff reviewed the chart.~Reviewed interim history and current functioning. Reviewed vital signs,~Labs/ Radiology~and current medications noted below. Continue current treatment with the changes noted in the dictated addendum note Assessment: Vital Signs: Vital Signs Date Time Temp Pulse Resp B/P (MAP) Pulse Ox O2 Delivery O2 Flow Rate FiO2 05/23/18 20:45 90 Nasal Cannula 2.0 05/23/18 10:08 16 05/23/18 08:05 99 145/74 05/23/18 06:33 97.9 I&O Intake and Output 05/23/18 07:00 Intake Total 480 ml Balance 480 ml Intake Oral 480 ml Current Medications: Meds: Current Medications Acetaminophen (Tylenol) 650 mg PRN Q6HRS PRN PO PAIN / TEMP; Start 05/11/18 at 04:15; Stop 05/11/18 at 07:18; Status DC Multi-Ingredient Ointment (Analgesic [place]) 1 shweta PRN QID PRN TP MUSCLE PAIN; Start 05/11/18 at 04:15 Al Hydroxide/Mg Hydroxide (Mylanta Plus Xs) 15 ml PRN AFTMEALHC PRN PO DYSPEPSIA Last administered on 05/23/18at 11:06; Start 05/11/18 at 04:15 Magnesium Hydroxide (Milk Of Magnesia) 2,400 mg PRN QHS PRN PO CONSTIPATION; Start 05/11/18 at 04:15 Olanzapine (ZyPREXA ZYDIS) 2.5 mg PRN Q2HR PRN PO PSYCHOSIS Last administered on 05/21/18at 12:41; Start 05/11/18 at 04:45 Memantine (Namenda) 5 mg TID PO Last administered on 05/13/18at 13:21; Start at 09:00; Stop 05/13/18 at 18:34; Status DC Acetaminophen (Tylenol) 650 mg Q4HRS PO ; Start 05/11/18 at 08:00; Stop at 08:00; Status DC Calcium Polycarbophil (Fibercon) 625 mg QHS PO Last administered on 05/23/18at 19:47; Start 05/11/18 at 21:00 Gabapentin (Neurontin) 200 mg TID PO Last administered on 05/23/18 19:47; Start 05/11/18 at 09:00 Potassium Chloride (Klor-Con) 20 meq BIDWMEALS PO Last administered on 17:25; Start 05/11/18 at 08:00 Amlodipine Besylate (Norvasc) 5 mg DAILY PO Last administered on 05/23/18 08: 05; Start 05/11/18 at 09:00 Dicyclomine HCl (Bentyl) 20 mg QID PO Last administered on 05/23/18 19:47; Start 05/11/18 at 09:00 Non-Formulary Medication (Fluticasone/ Salmeterol (Advair Hfa 115-21 Mcg Inhaler )) 1 puff BID IH ; Start 05/11/18 at 09:00; Stop 05/11/18 at 09:00; Status DC Hydrocortisone (Proctosol-Hc) 1 shweta PRN QID PRN RC RECTAL PAIN; Start 05/11/18 at 07:30 Lactobacillus Rhamnosus (Culturelle) 1 cap BID PO Last administered on 19:47; Start 05/11/18 at 09:00 Loperamide HCl (Imodium) 2 mg PRN Q4HRS PRN PO DIARRHEA; Start 05/11/18 at 07: 30 Pantoprazole Sodium (Protonix) 40 mg DAILYAC PO Last administered on 05/23/18 08:05; Start 05/11/18 at 07:30 Ondansetron HCl (Zofran Odt) 4 mg PRN Q6HRS PRN PO NAUSEA/VOMITING; Start 05/11 at 07:30 Acetaminophen (Tylenol) 650 mg PRN Q4HRS PRN PO PAIN / TEMP Last administered on 05/22/18 09:42; Start 05/11/18 at 07:30 Albuterol Sulfate (Ventolin) 2.5 mg RTQID NEB Last administered on 05/23/18 20 :44; Start 05/11/18 at 08:00 Budesonide (Pulmicort) 0.5 mg RTBID NEB Last administered on 05/23/18 20:44; Start 05/11/18 at 08:00 Trazodone HCl (Desyrel) 50 mg PRN QHS PRN PO INSOMNIA Last administered on at 23:42; Start 05/11/18 at 18:00 Sertraline HCl (Zoloft) 25 mg DAILY PO Last administered on 05/20/18at 08:41; Start 05/12/18 at 09:00; Stop 05/20/18 at 19:13; Status DC Memantine (Namenda) 10 mg BID PO Last administered on 05/23/18at 19:47; Start at 21:00 Quetiapine Fumarate (SEROquel) 12.5 mg 0900,1700 PO Last administered on at 17:16; Start 05/14/18 at 09:00; Stop 05/14/18 at 18:29; Status DC Quetiapine Fumarate (SEROquel) 12.5 mg 0900,1300,1700 PO Last administered on at 17:19; Start 05/15/18 at 09:00; Stop 05/17/18 at 19:16; Status DC Quetiapine Fumarate (SEROquel) 12.5 mg 1300,1700 PO Last administered on at 17:25; Start 05/18/18 at 13:00 Quetiapine Fumarate (SEROquel) 25 mg DAILY PO Last administered on 05/23/18at 08 :06; Start 05/18/18 at 09:00 Vitamin D (Vitamin D3) 50,000 unit WEEKLY PO Last administered on 05/20/18at 14: 12; Start 05/20/18 at 13:45 Sertraline HCl (Zoloft) 50 mg DAILY PO Last administered on 05/23/18at 08:05; Start 05/21/18 at 09:00; Stop 05/23/18 at 11:29; Status DC Acetaminophen/ Hydrocodone Bitart (Lortab 5/325) 1 tab PRN Q6HRS PRN PO PAIN Last administered on 05/23/18at 05:28; Start 05/22/18 at 14:00 Sertraline HCl (Zoloft) 75 mg DAILY PO ; Start 05/24/18 at 09:00 Active Scripts Active Reported Preparation H (Hydrocortisone) 26 Gm Cream..g. 1 Applic [place] PRN QID PRN Dicyclomine Hcl 20 Mg Tablet 20 Mg PO QID Zofran (Ondansetron Hcl) 4 Mg Tablet 4 Mg PO PRN Q6HRS PRN Imodium A-D (Loperamide HCl) 2 Mg Capsule 2 Mg PO PRN Q4HRS PRN Tylenol (Acetaminophen) 325 Mg Tablet 650 Mg PO Q4HRS Fibercon (Calcium Polycarbophil) 625 Mg Tablet 625 Mg PO QHS Namenda Xr (Memantine Hcl) 21 Mg Cap.spr.24 21 Mg PO DAILY Acidophilus Lactobacillus (Lactobacillus Acidophilus) 1 Each Capsule 1 Each PO BID Omeprazole 20 Mg Capsule.dr 20 Mg PO DAILY Advair Hfa 115-21 Mcg Inhaler (Fluticasone/Salmeterol) 12 Gm Hfa.aer.ad 1 Puff IH BID Klor-Con M20 (Potassium Chloride) 20 Meq Tab.er.prt 20 Meq PO BID Gabapentin 100 Mg Capsule 200 Mg PO TID Amlodipine Besylate 5 Mg Tablet 5 Mg PO DAILY I have reviewed the current psychotropics carefully including drug interactions. Risk benefit ratio favors no change other than as noted in my dictated progress note. Diagnosis: Problems: (1) Anxiety disorder (2) Dementia in Alzheimer's disease with delusions (3) Dementia in Alzheimer's disease with depression (4) Dementia, vascular, with delusions (5) Dementia, vascular, with depression (6) Impulse control disorder RHODA ORTA MD May 23, 2018 20:58
[2018-05-24] MEDS: ALBUTEROL SULFATE 2.5 MG/3 ML NEBU. NEB SCH ×4 (05:02→19:54)
[2018-05-24 06:23] VITALS: BP 160/82
[2018-05-24] MEDS: PANTOPRAZOLE 40 MG TABLET. PO SCH (08:17)
[2018-05-24] MEDS: POTASSIUM CHLORIDE 20 MEQ TABLET.ER. PO SCH ×2 (08:17→17:35)
[2018-05-24] MEDS: GABAPENTIN 100 MG CAPSULE. PO SCH ×3 (08:19→19:50)
[2018-05-24] MEDS: DICYCLOMINE HCL 20 MG TABLET PO SCH ×4 (08:19→19:49)
[2018-05-24] MEDS: LACTOBACILLUS RHAMNOSUS GG 1 CAPSULE. PO SCH ×2 (08:19→19:49)
[2018-05-24] MEDS: QUEtiapine 25 MG TABLET. PO SCH ×3 (08:19→17:35)
[2018-05-24] MEDS: amLODIPine BESYLATE 5 MG TABLET PO SCH (08:19)
[2018-05-24] MEDS: MEMANTINE 10 MG TABLET. PO SCH ×2 (08:19→19:50)
[2018-05-24] MEDS: SERTRALINE 25 MG TABLET. PO SCH (08:21)
[2018-05-24] MEDS: BUDESONIDE 0.5 MG/2 ML NEBU NEB SCH ×2 (09:33→19:54)
[2018-05-24 16:50] VITALS: BP 138/87
[2018-05-24] MEDS: CALCIUM POLYCARBOPHIL 625 MG TABLET PO SCH (19:49)
--- NOTE | 2018-05-24 23:05 | PN ---
DATE: 05/23/2018 PSYCHIATRIC PROGRESS NOTE This late entry 05/23/2018 covers elements not covered in my initial note. SUBJECTIVE: Met with the patient in the evening and staffed at a treatment team meeting with the entire team in the morning. The patient slept 9 hours. Her appetite is 50%. She is doing a little better, more compliant with medication. Day before, activity therapy staff indicated that she was singing in groups, more compliant. REVIEW OF SYSTEMS: Shortness of breath, impaired ambulation, in wheelchair. No CV, GI, system symptoms on review. MENTAL STATUS EXAM: Oriented to herself. Insight, judgment, recent, remote memory, attention, concentration, fund of knowledge is poor, consistent with her diagnoses mentioned in my initial note. PLAN: Increase Zoloft from 50 mg a day to 75 mg a day. Continue Seroquel along with trazodone. Adjust further as clinically indicated. RHODA ORTA MD DR: WARREN/vanessa JOB#: [id number] / [id number]
--- NOTE | 2018-05-24 23:20 | PDOC ---
Exam Note: Aidan Note: Please also refer to the separate dictated note~for this date of service dictated separately.~Patient seen individually. Discussed the patient with Nursing staff reviewed the chart.~Reviewed interim history and current functioning. Reviewed vital signs,~Labs/ Radiology~and current medications noted below. Continue current treatment with the changes noted in the dictated addendum note Assessment: Vital Signs: Vital Signs Date Time Temp Pulse Resp B/P (MAP) Pulse Ox O2 Delivery O2 Flow Rate FiO2 05/24/18 19:50 94 Nasal Cannula 3.0 05/24/18 16:50 97.1 110 26 138/87 (104) I&O Intake and Output 05/24/18 07:00 Intake Total 720 ml Balance 720 ml Intake Oral 720 ml Current Medications: Meds: Current Medications Acetaminophen (Tylenol) 650 mg PRN Q6HRS PRN PO PAIN / TEMP; Start 05/11/18 at 04:15; Stop 05/11/18 at 07:18; Status DC Multi-Ingredient Ointment (Analgesic [place]) 1 shweta PRN QID PRN TP MUSCLE PAIN; Start 05/11/18 at 04:15 Al Hydroxide/Mg Hydroxide (Mylanta Plus Xs) 15 ml PRN AFTMEALHC PRN PO DYSPEPSIA Last administered on 05/23/18at 11:06; Start 05/11/18 at 04:15 Magnesium Hydroxide (Milk Of Magnesia) 2,400 mg PRN QHS PRN PO CONSTIPATION; Start 05/11/18 at 04:15 Olanzapine (ZyPREXA ZYDIS) 2.5 mg PRN Q2HR PRN PO PSYCHOSIS Last administered on 05/21/18at 12:41; Start 05/11/18 at 04:45 Memantine (Namenda) 5 mg TID PO Last administered on 05/13/18at 13:21; Start at 09:00; Stop 05/13/18 at 18:34; Status DC Acetaminophen (Tylenol) 650 mg Q4HRS PO ; Start 05/11/18 at 08:00; Stop at 08:00; Status DC Calcium Polycarbophil (Fibercon) 625 mg QHS PO Last administered on 05/24/18at 19:49; Start 05/11/18 at 21:00 Gabapentin (Neurontin) 200 mg TID PO Last administered on 05/24/18 19:50; Start 05/11/18 at 09:00 Potassium Chloride (Klor-Con) 20 meq BIDWMEALS PO Last administered on 17:35; Start 05/11/18 at 08:00 Amlodipine Besylate (Norvasc) 5 mg DAILY PO Last administered on 05/24/18 08: 19; Start 05/11/18 at 09:00 Dicyclomine HCl (Bentyl) 20 mg QID PO Last administered on 05/24/18 19:49; Start 05/11/18 at 09:00 Non-Formulary Medication (Fluticasone/ Salmeterol (Advair Hfa 115-21 Mcg Inhaler )) 1 puff BID IH ; Start 05/11/18 at 09:00; Stop 05/11/18 at 09:00; Status DC Hydrocortisone (Proctosol-Hc) 1 shweta PRN QID PRN RC RECTAL PAIN; Start 05/11/18 at 07:30 Lactobacillus Rhamnosus (Culturelle) 1 cap BID PO Last administered on 19:49; Start 05/11/18 at 09:00 Loperamide HCl (Imodium) 2 mg PRN Q4HRS PRN PO DIARRHEA; Start 05/11/18 at 07: 30 Pantoprazole Sodium (Protonix) 40 mg DAILYAC PO Last administered on 05/24/18 08:17; Start 05/11/18 at 07:30 Ondansetron HCl (Zofran Odt) 4 mg PRN Q6HRS PRN PO NAUSEA/VOMITING; Start 05/11 at 07:30 Acetaminophen (Tylenol) 650 mg PRN Q4HRS PRN PO PAIN / TEMP Last administered on 05/22/18 09:42; Start 05/11/18 at 07:30 Albuterol Sulfate (Ventolin) 2.5 mg RTQID NEB Last administered on 05/24/18 19 :54; Start 05/11/18 at 08:00 Budesonide (Pulmicort) 0.5 mg RTBID NEB Last administered on 05/24/18 19:54; Start 05/11/18 at 08:00 Trazodone HCl (Desyrel) 50 mg PRN QHS PRN PO INSOMNIA Last administered on 23:42; Start 05/11/18 at 18:00 Sertraline HCl (Zoloft) 25 mg DAILY PO Last administered on 05/20/18at 08:41; Start 05/12/18 at 09:00; Stop 05/20/18 at 19:13; Status DC Memantine (Namenda) 10 mg BID PO Last administered on 05/24/18 19:50; Start at 21:00 Quetiapine Fumarate (SEROquel) 12.5 mg 0900,1700 PO Last administered on 17:16; Start 05/14/18 at 09:00; Stop 05/14/18 at 18:29; Status DC Quetiapine Fumarate (SEROquel) 12.5 mg 0900,1300,1700 PO Last administered on 17:19; Start 05/15/18 at 09:00; Stop 05/17/18 at 19:16; Status DC Quetiapine Fumarate (SEROquel) 12.5 mg 1300,1700 PO Last administered on 17:35; Start 05/18/18 at 13:00 Quetiapine Fumarate (SEROquel) 25 mg DAILY PO Last administered on 05/24/18 08 :19; Start 05/18/18 at 09:00 Vitamin D (Vitamin D3) 50,000 unit WEEKLY PO Last administered on 05/20/18at 14: 12; Start 05/20/18 at 13:45 Sertraline HCl (Zoloft) 50 mg DAILY PO Last administered on 05/23/18at 08:05; Start 05/21/18 at 09:00; Stop 05/23/18 at 11:29; Status DC Acetaminophen/ Hydrocodone Bitart (Lortab 5/325) 1 tab PRN Q6HRS PRN PO PAIN Last administered on 05/23/18 05:28; Start 05/22/18 at 14:00 Sertraline HCl (Zoloft) 75 mg DAILY PO Last administered on 05/24/18 08:21; Start 05/24/18 at 09:00 Active Scripts Active Reported Preparation H (Hydrocortisone) 26 Gm Cream..g. 1 Applic [place] PRN QID PRN Dicyclomine Hcl 20 Mg Tablet 20 Mg PO QID Zofran (Ondansetron Hcl) 4 Mg Tablet 4 Mg PO PRN Q6HRS PRN Imodium A-D (Loperamide HCl) 2 Mg Capsule 2 Mg PO PRN Q4HRS PRN Tylenol (Acetaminophen) 325 Mg Tablet 650 Mg PO Q4HRS Fibercon (Calcium Polycarbophil) 625 Mg Tablet 625 Mg PO QHS Namenda Xr (Memantine Hcl) 21 Mg Cap.spr.24 21 Mg PO DAILY Acidophilus Lactobacillus (Lactobacillus Acidophilus) 1 Each Capsule 1 Each PO BID Omeprazole 20 Mg Capsule.dr 20 Mg PO DAILY Advair Hfa 115-21 Mcg Inhaler (Fluticasone/Salmeterol) 12 Gm Hfa.aer.ad 1 Puff IH BID Klor-Con M20 (Potassium Chloride) 20 Meq Tab.er.prt 20 Meq PO BID Gabapentin 100 Mg Capsule 200 Mg PO TID Amlodipine Besylate 5 Mg Tablet 5 Mg PO DAILY I have reviewed the current psychotropics carefully including drug interactions. Risk benefit ratio favors no change other than as noted in my dictated progress note. Diagnosis: Problems: (1) Anxiety disorder (2) Dementia in Alzheimer's disease with delusions (3) Dementia in Alzheimer's disease with depression (4) Dementia, vascular, with delusions (5) Dementia, vascular, with depression (6) Impulse control disorder RHODA ORTA MD May 24, 2018 23:20
--- NOTE | 2018-05-25 00:31 | PN ---
DATE: 05/22/2018 This is a late entry for 05/22/2018 and covers the elements not covered in my initial note. SUBJECTIVE: I met with the patient in the evening. The patient slept 8-1/2 hours previous evening, has had increased wheezing, O2's were somewhat low. She pulled out her O2 supplements, encouraging her to keep it on. Constantly complains of feeling cold. UA shows 25-50,000 strep, we will defer to Dr. Armas. REVIEW OF SYSTEMS: Shortness of breath, impaired ambulation, in wheelchair. No CV, , GI, eye system symptoms on review. MENTAL STATUS EXAM: Oriented to herself. Insight, judgment, recent and remote memory, attention, concentration, fund of knowledge poor, consistent with her diagnosis mentioned in my initial note. PLAN: Continue psychotropics from my initial note. MAN Lyla ORTA MD DR: WARREN/vanessa JOB#: [id number] / [id number]
[2018-05-25] MEDS: ALBUTEROL SULFATE 2.5 MG/3 ML NEBU. NEB SCH ×4 (05:04→21:17)
[2018-05-25 05:58] VITALS: BP 143/72
[2018-05-25] MEDS: SERTRALINE 25 MG TABLET. PO SCH (08:00)
[2018-05-25] MEDS: LACTOBACILLUS RHAMNOSUS GG 1 CAPSULE. PO SCH ×2 (08:00→20:13)
[2018-05-25] MEDS: POTASSIUM CHLORIDE 20 MEQ TABLET.ER. PO SCH ×2 (08:01→17:21)
[2018-05-25] MEDS: MEMANTINE 10 MG TABLET. PO SCH ×2 (08:01→20:13)
[2018-05-25] MEDS: GABAPENTIN 100 MG CAPSULE. PO SCH ×3 (08:01→20:13)
[2018-05-25] MEDS: QUEtiapine 25 MG TABLET. PO SCH ×3 (08:02→17:21)
[2018-05-25] MEDS: amLODIPine BESYLATE 5 MG TABLET PO SCH (08:02)
[2018-05-25] MEDS: DICYCLOMINE HCL 20 MG TABLET PO SCH ×4 (08:02→20:13)
[2018-05-25] MEDS: PANTOPRAZOLE 40 MG TABLET. PO SCH (08:02)
[2018-05-25] MEDS: BUDESONIDE 0.5 MG/2 ML NEBU NEB SCH ×2 (10:18→21:17)
[2018-05-25 16:12] VITALS: BP 148/84
[2018-05-25] MEDS: CALCIUM POLYCARBOPHIL 625 MG TABLET PO SCH (20:13)
--- NOTE | 2018-05-25 23:07 | PDOC ---
Exam Note: Aidan Note: Please also refer to the separate dictated note~for this date of service dictated separately.~Patient seen individually. Discussed the patient with Nursing staff reviewed the chart.~Reviewed interim history and current functioning. Reviewed vital signs,~Labs/ Radiology~and current medications noted below. Continue current treatment with the changes noted in the dictated addendum note Assessment: Vital Signs: Vital Signs Date Time Temp Pulse Resp B/P (MAP) Pulse Ox O2 Delivery O2 Flow Rate FiO2 05/25/18 21:20 94 Nasal Cannula 2.5 05/25/18 16:12 98.1 93 20 148/84 (105) I&O Intake and Output 05/25/18 06:59 Intake Total 720 ml Balance 720 ml Intake Oral 720 ml # Voids 1 Current Medications: Meds: Current Medications Acetaminophen (Tylenol) 650 mg PRN Q6HRS PRN PO PAIN / TEMP; Start 05/11/18 at 04:15; Stop 05/11/18 at 07:18; Status DC Multi-Ingredient Ointment (Analgesic [place]) 1 shweta PRN QID PRN TP MUSCLE PAIN; Start 05/11/18 at 04:15 Al Hydroxide/Mg Hydroxide (Mylanta Plus Xs) 15 ml PRN AFTMEALHC PRN PO DYSPEPSIA Last administered on 05/23/18at 11:06; Start 05/11/18 at 04:15 Magnesium Hydroxide (Milk Of Magnesia) 2,400 mg PRN QHS PRN PO CONSTIPATION Last administered on 05/25/18at 00:10; Start 05/11/18 at 04:15 Olanzapine (ZyPREXA ZYDIS) 2.5 mg PRN Q2HR PRN PO PSYCHOSIS Last administered on 05/21/18at 12:41; Start 05/11/18 at 04:45 Memantine (Namenda) 5 mg TID PO Last administered on 05/13/18at 13:21; Start at 09:00; Stop 05/13/18 at 18:34; Status DC Acetaminophen (Tylenol) 650 mg Q4HRS PO ; Start 05/11/18 at 08:00; Stop at 08:00; Status DC Calcium Polycarbophil (Fibercon) 625 mg QHS PO Last administered on 05/25/18at 20:13; Start 05/11/18 at 21:00 Gabapentin (Neurontin) 200 mg TID PO Last administered on 05/25/18 20:13; Start 05/11/18 at 09:00 Potassium Chloride (Klor-Con) 20 meq BIDWMEALS PO Last administered on 17:21; Start 05/11/18 at 08:00 Amlodipine Besylate (Norvasc) 5 mg DAILY PO Last administered on 05/25/18 08: 02; Start 05/11/18 at 09:00 Dicyclomine HCl (Bentyl) 20 mg QID PO Last administered on 05/25/18 20:13; Start 05/11/18 at 09:00 Non-Formulary Medication (Fluticasone/ Salmeterol (Advair Hfa 115-21 Mcg Inhaler )) 1 puff BID IH ; Start 05/11/18 at 09:00; Stop 05/11/18 at 09:00; Status DC Hydrocortisone (Proctosol-Hc) 1 shweta PRN QID PRN RC RECTAL PAIN; Start 05/11/18 at 07:30 Lactobacillus Rhamnosus (Culturelle) 1 cap BID PO Last administered on 20:13; Start 05/11/18 at 09:00 Loperamide HCl (Imodium) 2 mg PRN Q4HRS PRN PO DIARRHEA; Start 05/11/18 at 07: 30 Pantoprazole Sodium (Protonix) 40 mg DAILYAC PO Last administered on 05/25/18at 08:02; Start 05/11/18 at 07:30 Ondansetron HCl (Zofran Odt) 4 mg PRN Q6HRS PRN PO NAUSEA/VOMITING; Start 05/11 at 07:30 Acetaminophen (Tylenol) 650 mg PRN Q4HRS PRN PO PAIN / TEMP Last administered on 05/22/18at 09:42; Start 05/11/18 at 07:30 Albuterol Sulfate (Ventolin) 2.5 mg RTQID NEB Last administered on 05/25/18 21 :17; Start 05/11/18 at 08:00 Budesonide (Pulmicort) 0.5 mg RTBID NEB Last administered on 05/25/18 21:17; Start 05/11/18 at 08:00 Trazodone HCl (Desyrel) 50 mg PRN QHS PRN PO INSOMNIA Last administered on 23:42; Start 05/11/18 at 18:00 Sertraline HCl (Zoloft) 25 mg DAILY PO Last administered on 05/20/18at 08:41; Start 05/12/18 at 09:00; Stop 05/20/18 at 19:13; Status DC Memantine (Namenda) 10 mg BID PO Last administered on 05/25/18at 20:13; Start at 21:00 Quetiapine Fumarate (SEROquel) 12.5 mg 0900,1700 PO Last administered on 17:16; Start 05/14/18 at 09:00; Stop 05/14/18 at 18:29; Status DC Quetiapine Fumarate (SEROquel) 12.5 mg 0900,1300,1700 PO Last administered on at 17:19; Start 05/15/18 at 09:00; Stop 05/17/18 at 19:16; Status DC Quetiapine Fumarate (SEROquel) 12.5 mg 1300,1700 PO Last administered on at 17:21; Start 05/18/18 at 13:00 Quetiapine Fumarate (SEROquel) 25 mg DAILY PO Last administered on 05/25/18at 08 :02; Start 05/18/18 at 09:00; Stop 05/25/18 at 21:14; Status DC Vitamin D (Vitamin D3) 50,000 unit WEEKLY PO Last administered on 05/20/18at 14: 12; Start 05/20/18 at 13:45 Sertraline HCl (Zoloft) 50 mg DAILY PO Last administered on 05/23/18at 08:05; Start 05/21/18 at 09:00; Stop 05/23/18 at 11:29; Status DC Acetaminophen/ Hydrocodone Bitart (Lortab 5/325) 1 tab PRN Q6HRS PRN PO PAIN Last administered on 05/23/18 05:28; Start 05/22/18 at 14:00 Sertraline HCl (Zoloft) 75 mg DAILY PO Last administered on 05/25/18at 08:00; Start 05/24/18 at 09:00 Quetiapine Fumarate (SEROquel) 12.5 mg DAILY PO ; Start 05/26/18 at 09:00 Active Scripts Active Reported Preparation H (Hydrocortisone) 26 Gm Cream..g. 1 Applic [place] PRN QID PRN Dicyclomine Hcl 20 Mg Tablet 20 Mg PO QID Zofran (Ondansetron Hcl) 4 Mg Tablet 4 Mg PO PRN Q6HRS PRN Imodium A-D (Loperamide HCl) 2 Mg Capsule 2 Mg PO PRN Q4HRS PRN Tylenol (Acetaminophen) 325 Mg Tablet 650 Mg PO Q4HRS Fibercon (Calcium Polycarbophil) 625 Mg Tablet 625 Mg PO QHS Namenda Xr (Memantine Hcl) 21 Mg Cap.spr.24 21 Mg PO DAILY Acidophilus Lactobacillus (Lactobacillus Acidophilus) 1 Each Capsule 1 Each PO BID Omeprazole 20 Mg Capsule.dr 20 Mg PO DAILY Advair Hfa 115-21 Mcg Inhaler (Fluticasone/Salmeterol) 12 Gm Hfa.aer.ad 1 Puff IH BID Klor-Con M20 (Potassium Chloride) 20 Meq Tab.er.prt 20 Meq PO BID Gabapentin 100 Mg Capsule 200 Mg PO TID Amlodipine Besylate 5 Mg Tablet 5 Mg PO DAILY I have reviewed the current psychotropics carefully including drug interactions. Risk benefit ratio favors no change other than as noted in my dictated progress note. Diagnosis: Problems: (1) Anxiety disorder (2) Dementia in Alzheimer's disease with delusions (3) Dementia in Alzheimer's disease with depression (4) Dementia, vascular, with delusions (5) Dementia, vascular, with depression (6) Impulse control disorder RHODA ORTA MD May 25, 2018 23:07
[2018-05-26] MEDS: ALBUTEROL SULFATE 2.5 MG/3 ML NEBU. NEB SCH ×4 (05:15→22:04)
[2018-05-26 05:58] VITALS: BP 160/84
[2018-05-26] MEDS: PANTOPRAZOLE 40 MG TABLET. PO SCH (08:15)
[2018-05-26] MEDS: POTASSIUM CHLORIDE 20 MEQ TABLET.ER. PO SCH ×2 (08:15→15:55)
[2018-05-26] MEDS: MEMANTINE 10 MG TABLET. PO SCH ×2 (08:16→20:43)
[2018-05-26] MEDS: DICYCLOMINE HCL 20 MG TABLET PO SCH ×4 (08:16→20:43)
[2018-05-26] MEDS: QUEtiapine 25 MG TABLET. PO SCH ×3 (08:16→15:55)
[2018-05-26] MEDS: LACTOBACILLUS RHAMNOSUS GG 1 CAPSULE. PO SCH ×2 (08:16→20:43)
[2018-05-26] MEDS: GABAPENTIN 100 MG CAPSULE. PO SCH ×3 (08:18→20:43)
[2018-05-26] MEDS: SERTRALINE 25 MG TABLET. PO SCH (08:19)
[2018-05-26] MEDS: amLODIPine BESYLATE 5 MG TABLET PO SCH (08:19)
[2018-05-26] MEDS: BUDESONIDE 0.5 MG/2 ML NEBU NEB SCH ×2 (10:11→22:04)
[2018-05-26 13:25] LABS: BACTERIA,URINE FEW /HPF (0-FEW); BILIRUBIN,URINE NEG (NEG); CLARITY,URINE CLEAR; COLOR,URINE YELLOW; GLUCOSE,URINE NEG (NEG); NITRITE,URINE NEG (NEG); RBC,URINE 0 /HPF (0-2); SQUAMOUS EPITHELIAL CELL,UR FEW /LPF; UROBILINOGEN,URINE 1 mg/dL (0.2 mg/dL)
[2018-05-26 13:26] LABS: HYALINE CASTS, URINE OCC /HPF
[2018-05-26] MEDS: ACETAMINOPHEN 325 MG TABLET PO PRN (15:55)
[2018-05-26 16:06] VITALS: BP 165/73
--- NOTE | 2018-05-26 18:06 | PN ---
DATE: 05/24/2018 PSYCHIATRIC PROGRESS NOTE This is a late entry 05/24/2018, covers elements not covered in my initial note. SUBJECTIVE: I met with the patient in the evening. The patient slept 5 hours previous evening. Appetite about 85%. She did well until about 9:00 a.m. and then oxygen sats were low and she was somewhat drowsy, made some vague statements of wanting to . Questioned her closely on this. No active suicidal ideation. REVIEW OF SYSTEMS: Ambulation impaired, in wheelchair, difficulty breathing, oxygen in place, nasal cannula. No CV, , eye system symptoms on review. MENTAL STATUS EXAM: Oriented to herself. Insight, judgment, recent and remote memory, attention, concentration, fund of knowledge poor, consistent with her diagnoses mentioned in my initial note. PLAN: Continue psychotropics from initial note. MAN Lyla ORTA MD DR: WARREN/vanessa JOB#: [id number] / [id number]
--- NOTE | 2018-05-26 18:19 | PN ---
DATE: 05/25/2018 PSYCHIATRIC PROGRESS NOTE This late entry 05/25/2018 covers elements not covered in my initial note of 05/25/2018. SUBJECTIVE: Met with the patient in the evening. The patient slept 5-1/4 hours previous evening, somewhat drowsy in the morning. She frequently gets her left hand stuck in the wheelchair. Nursing staffs are using precautions for this. REVIEW OF SYSTEMS: Shortness of breath impaired, ambulation in wheelchair. No CV, , eye system symptoms on review. No eye, ENT system symptoms MENTAL STATUS EXAM: Oriented to herself. Insight, judgment, recent, remote memory, attention, concentration, fund of knowledge is poor, consistent with her diagnoses mentioned in my initial note. PLAN: Reduce her 9:00 a.m. Seroquel from 25 mg to 12.5 mg due to sedation. Continue rest unchanged. MAN Lyla ORTA MD DR: WARREN/vanessa JOB#: [id number] / [id number]
[2018-05-26 18:44] LABS: ALBUMIN 3.4 g/dL (3.4-5.0); ALBUMIN/GLOBULIN RATIO 0.8 (1.0-1.7); CALCIUM 9.6 mg/dL (8.5-10.1); CREATININE 0.9 mg/dL (0.6-1.0); TOTAL BILIRUBIN 0.4 mg/dL (0.2-1.0); TOTAL PROTEIN 7.8 g/dL (6.4-8.2)
[2018-05-26 18:45] LABS: BASO % 0 % (0-3); EOS # 0.1 x10^3/uL (0.0-0.7); EOS % 1 % (0-3); HEMATOCRIT 37.2 % (36.0-47.0); HEMOGLOBIN 12.1 g/dL (12.0-15.5); LYMPH # 0.5 x10^3/uL (1.0-4.8); LYMPH % 6 % (24-48); MEAN CORPUSCULAR HEMOGLOBIN 29 pg (25-35); MEAN CORPUSCULAR HGB CONC 33 g/dL (31-37); MEAN CORPUSCULAR VOLUME 89 fL (79-100); MONO # 0.5 x10^3/uL (0.0-1.1); MONO % 5 % (0-9); NEUT # 8.4 x10^3uL (1.8-7.7); NEUT % 88 % (31-73); PLATELET COUNT 242 x10^3/uL (140-400); RED BLOOD COUNT 4.16 x10^6/uL (3.50-5.40); RED CELL DISTRIBUTION WIDTH 17.1 % (11.5-14.5); WHITE BLOOD COUNT 9.5 x10^3/uL (4.0-11.0)
[2018-05-26] MEDS: CALCIUM POLYCARBOPHIL 625 MG TABLET PO SCH (20:43)
--- NOTE | 2018-05-26 21:04 | PDOC ---
Exam Note: Aidan Note: Please also refer to the separate dictated note~for this date of service dictated separately.~Patient seen individually. Discussed the patient with Nursing staff reviewed the chart.~Reviewed interim history and current functioning. Reviewed vital signs,~Labs/ Radiology~and current medications noted below. Continue current treatment with the changes noted in the dictated addendum note Assessment: Vital Signs: Vital Signs Date Time Temp Pulse Resp B/P (MAP) Pulse Ox O2 Delivery O2 Flow Rate FiO2 05/26/18 16:10 92 Nasal Cannula 2.5 05/26/18 16:06 98.5 56 16 165/73 (103) I&O Intake and Output 05/26/18 06:59 Intake Total 1320 ml Balance 1320 ml Intake Oral 1320 ml # Voids 1 # Bowel Movements 3 Labs: Laboratory Tests Test 05/26/18 13:08 05/26/18 18:12 Urine Collection Type Unknown Urine Color Yellow Urine Clarity Clear Urine pH 7.5 Urine Specific [place] 1.020 Urine Protein Trace (NEG-TRACE) Urine Glucose (UA) Neg mg/dL (NEG) Urine Ketones (Stick) Trace mg/dL (NEG) Urine Blood Trace (NEG) Urine Nitrite Neg (NEG) Urine Bilirubin Neg (NEG) Urine Urobilinogen Dipstick 1 mg/dL (0.2 mg/dL) Urine Leukocyte Esterase Neg (NEG) Urine RBC 0 /HPF (0-2) Urine WBC 1-4 /HPF (0-4) Urine Squamous Epithelial Cells Few /LPF Urine Bacteria Few /HPF (0-FEW) Urine Hyaline Casts Occ /HPF Urine Mucus Mod /LPF White Blood Count 9.5 x10^3/uL (4.0-11.0) Red Blood Count 4.16 x10^6/uL (3.50-5.40) Hemoglobin 12.1 g/dL (12.0-15.5) Hematocrit 37.2 % (36.0-47.0) Mean Corpuscular Volume 89 fL (79-100) Mean Corpuscular Hemoglobin 29 pg (25-35) Mean Corpuscular Hemoglobin Concent 33 g/dL (31-37) Red Cell Distribution Width 17.1 % (11.5-14.5) H Platelet Count 242 x10^3/uL (140-400) Neutrophils (%) (Auto) 88 % (31-73) H Lymphocytes (%) (Auto) 6 % (24-48) L Monocytes (%) (Auto) 5 % (0-9) Eosinophils (%) (Auto) 1 % (0-3) Basophils (%) (Auto) 0 % (0-3) Neutrophils # (Auto) 8.4 x10^3uL (1.8-7.7) H Lymphocytes # (Auto) 0.5 x10^3/uL (1.0-4.8) L Monocytes # (Auto) 0.5 x10^3/uL (0.0-1.1) Eosinophils # (Auto) 0.1 x10^3/uL (0.0-0.7) Basophils # (Auto) 0.0 x10^3/uL (0.0-0.2) Sodium Level 141 mmol/L (136-145) Potassium Level 5.0 mmol/L (3.5-5.1) Chloride Level 104 mmol/L (98-107) Carbon Dioxide Level 35 mmol/L (21-32) H Anion Gap 2 (6-14) L Blood Urea Nitrogen 30 mg/dL (7-20) H Creatinine 0.9 mg/dL (0.6-1.0) Estimated GFR (Cockcroft-Gault) 61.0 BUN/Creatinine Ratio 33 (6-20) H Glucose Level 115 mg/dL (70-99) H Calcium Level 9.6 mg/dL (8.5-10.1) Total Bilirubin 0.4 mg/dL (0.2-1.0) Aspartate Amino Transferase (AST) 22 U/L (15-37) Alanine Aminotransferase (ALT) 24 U/L (14-59) Alkaline Phosphatase 136 U/L (46-116) H Total Protein 7.8 g/dL (6.4-8.2) Albumin 3.4 g/dL (3.4-5.0) Albumin/Globulin Ratio 0.8 (1.0-1.7) L Current Medications: Meds: Current Medications Acetaminophen (Tylenol) 650 mg PRN Q6HRS PRN PO PAIN / TEMP; Start 05/11/18 at 04:15; Stop 05/11/18 at 07:18; Status DC Multi-Ingredient Ointment (Analgesic [place]) 1 shweta PRN QID PRN TP MUSCLE PAIN; Start 05/11/18 at 04:15 Al Hydroxide/Mg Hydroxide (Mylanta Plus Xs) 15 ml PRN AFTMEALHC PRN PO DYSPEPSIA Last administered on 05/23/18at 11:06; Start 05/11/18 at 04:15 Magnesium Hydroxide (Milk Of Magnesia) 2,400 mg PRN QHS PRN PO CONSTIPATION Last administered on 05/25/18at 00:10; Start 05/11/18 at 04:15 Olanzapine (ZyPREXA ZYDIS) 2.5 mg PRN Q2HR PRN PO PSYCHOSIS Last administered on 05/21/18 12:41; Start 05/11/18 at 04:45 Memantine (Namenda) 5 mg TID PO Last administered on 05/13/18 13:21; Start at 09:00; Stop 05/13/18 at 18:34; Status DC Acetaminophen (Tylenol) 650 mg Q4HRS PO ; Start 05/11/18 at 08:00; Stop at 08:00; Status DC Calcium Polycarbophil (Fibercon) 625 mg QHS PO Last administered on 05/26/18at 20:43; Start 05/11/18 at 21:00 Gabapentin (Neurontin) 200 mg TID PO Last administered on 05/26/18 20:43; Start 05/11/18 at 09:00 Potassium Chloride (Klor-Con) 20 meq BIDWMEALS PO Last administered on at 15:55; Start 05/11/18 at 08:00 Amlodipine Besylate (Norvasc) 5 mg DAILY PO Last administered on 05/26/18at 08: 19; Start 05/11/18 at 09:00 Dicyclomine HCl (Bentyl) 20 mg QID PO Last administered on 05/26/18at 20:43; Start 05/11/18 at 09:00 Non-Formulary Medication (Fluticasone/ Salmeterol (Advair Hfa 115-21 Mcg Inhaler )) 1 puff BID IH ; Start 05/11/18 at 09:00; Stop 05/11/18 at 09:00; Status DC Hydrocortisone (Proctosol-Hc) 1 shweta PRN QID PRN RC RECTAL PAIN; Start 05/11/18 at 07:30 Lactobacillus Rhamnosus (Culturelle) 1 cap BID PO Last administered on at 20:43; Start 05/11/18 at 09:00 Loperamide HCl (Imodium) 2 mg PRN Q4HRS PRN PO DIARRHEA; Start 05/11/18 at 07: 30 Pantoprazole Sodium (Protonix) 40 mg DAILYAC PO Last administered on 05/26/18at 08:15; Start 05/11/18 at 07:30 Ondansetron HCl (Zofran Odt) 4 mg PRN Q6HRS PRN PO NAUSEA/VOMITING; Start 05/11 at 07:30 Acetaminophen (Tylenol) 650 mg PRN Q4HRS PRN PO PAIN / TEMP Last administered on 05/26/18at 15:55; Start 05/11/18 at 07:30 Albuterol Sulfate (Ventolin) 2.5 mg RTQID NEB Last administered on 05/26/18at 16 :10; Start 05/11/18 at 08:00 Budesonide (Pulmicort) 0.5 mg RTBID NEB Last administered on 05/26/18at 10:11; Start 05/11/18 at 08:00 Trazodone HCl (Desyrel) 50 mg PRN QHS PRN PO INSOMNIA Last administered on at 23:42; Start 05/11/18 at 18:00 Sertraline HCl (Zoloft) 25 mg DAILY PO Last administered on 05/20/18at 08:41; Start 05/12/18 at 09:00; Stop 05/20/18 at 19:13; Status DC Memantine (Namenda) 10 mg BID PO Last administered on 05/26/18at 20:43; Start at 21:00 Quetiapine Fumarate (SEROquel) 12.5 mg 0900,1700 PO Last administered on 17:16; Start 05/14/18 at 09:00; Stop 05/14/18 at 18:29; Status DC Quetiapine Fumarate (SEROquel) 12.5 mg 0900,1300,1700 PO Last administered on 17:19; Start 05/15/18 at 09:00; Stop 05/17/18 at 19:16; Status DC Quetiapine Fumarate (SEROquel) 12.5 mg 1300,1700 PO Last administered on at 15:55; Start 05/18/18 at 13:00 Quetiapine Fumarate (SEROquel) 25 mg DAILY PO Last administered on 05/25/18at 08 :02; Start 05/18/18 at 09:00; Stop 05/25/18 at 21:14; Status DC Vitamin D (Vitamin D3) 50,000 unit WEEKLY PO Last administered on 05/20/18at 14: 12; Start 05/20/18 at 13:45 Sertraline HCl (Zoloft) 50 mg DAILY PO Last administered on 05/23/18at 08:05; Start 05/21/18 at 09:00; Stop 05/23/18 at 11:29; Status DC Acetaminophen/ Hydrocodone Bitart (Lortab 5/325) 1 tab PRN Q6HRS PRN PO PAIN Last administered on 05/23/18at 05:28; Start 05/22/18 at 14:00 Sertraline HCl (Zoloft) 75 mg DAILY PO Last administered on 05/26/18at 08:19; Start 05/24/18 at 09:00 Quetiapine Fumarate (SEROquel) 12.5 mg DAILY PO Last administered on 05/26/18at 08:16; Start 05/26/18 at 09:00 Active Scripts Active Reported Preparation H (Hydrocortisone) 26 Gm Cream..g. 1 Applic [place] PRN QID PRN Dicyclomine Hcl 20 Mg Tablet 20 Mg PO QID Zofran (Ondansetron Hcl) 4 Mg Tablet 4 Mg PO PRN Q6HRS PRN Imodium A-D (Loperamide HCl) 2 Mg Capsule 2 Mg PO PRN Q4HRS PRN Tylenol (Acetaminophen) 325 Mg Tablet 650 Mg PO Q4HRS Fibercon (Calcium Polycarbophil) 625 Mg Tablet 625 Mg PO QHS Namenda Xr (Memantine Hcl) 21 Mg Cap.spr.24 21 Mg PO DAILY Acidophilus Lactobacillus (Lactobacillus Acidophilus) 1 Each Capsule 1 Each PO BID Omeprazole 20 Mg Capsule.dr 20 Mg PO DAILY Advair Hfa 115-21 Mcg Inhaler (Fluticasone/Salmeterol) 12 Gm Hfa.aer.ad 1 Puff IH BID Klor-Con M20 (Potassium Chloride) 20 Meq Tab.er.prt 20 Meq PO BID Gabapentin 100 Mg Capsule 200 Mg PO TID Amlodipine Besylate 5 Mg Tablet 5 Mg PO DAILY I have reviewed the current psychotropics carefully including drug interactions. Risk benefit ratio favors no change other than as noted in my dictated progress note. Diagnosis: Problems: (1) Anxiety disorder (2) Dementia in Alzheimer's disease with delusions (3) Dementia in Alzheimer's disease with depression (4) Dementia, vascular, with delusions (5) Dementia, vascular, with depression (6) Impulse control disorder RHODA ORTA MD May 26, 2018 21:04
[2018-05-27] MEDS: ALBUTEROL SULFATE 2.5 MG/3 ML NEBU. NEB SCH ×4 (05:07→20:31)
[2018-05-27 06:18] VITALS: BP 138/80
[2018-05-27] MEDS: POTASSIUM CHLORIDE 20 MEQ TABLET.ER. PO SCH ×2 (08:18→17:29)
[2018-05-27] MEDS: MEMANTINE 10 MG TABLET. PO SCH ×2 (08:18→19:38)
[2018-05-27] MEDS: DICYCLOMINE HCL 20 MG TABLET PO SCH ×4 (08:19→19:38)
[2018-05-27] MEDS: amLODIPine BESYLATE 5 MG TABLET PO SCH (08:19)
[2018-05-27] MEDS: SERTRALINE 25 MG TABLET. PO SCH (08:19)
[2018-05-27] MEDS: GABAPENTIN 100 MG CAPSULE. PO SCH ×3 (08:19→19:39)
[2018-05-27] MEDS: LACTOBACILLUS RHAMNOSUS GG 1 CAPSULE. PO SCH ×2 (08:19→19:39)
[2018-05-27] MEDS: PANTOPRAZOLE 40 MG TABLET. PO SCH (08:19)
[2018-05-27] MEDS: CHOLECALCIFEROL (VITAMIN D3) 50,000 UNIT CAPSULE PO SCH (08:21)
[2018-05-27] MEDS: QUEtiapine 25 MG TABLET. PO SCH ×3 (10:15→17:28)
[2018-05-27] MEDS: BUDESONIDE 0.5 MG/2 ML NEBU NEB SCH ×2 (11:23→20:31)
[2018-05-27 16:08] VITALS: BP 125/79
--- NOTE | 2018-05-27 17:17 | RAD ---
INDICATION: Short of air and wheezing. TECHNIQUE: AP upright portable chest radiograph was obtained. Comparison is from May 19, 2018. FINDINGS: There is minimal atelectasis in the left lung base. There are calcified granulomas. The lungs otherwise are clear. The lungs are hyperinflated with mild flattening of the diaphragm. The heart is not enlarged. There is no definite heart failure. There is atheromatous disease in the thoracic aorta. Partially included is aorta stent graft. IMPRESSION: 1. Minimal atelectasis or infiltrate in the left lung base. 2. Hyperinflation suggests emphysema. Electronically signed by: Jayson Noble MD (05/27/2018 5:14 PM) [facility]
[2018-05-27] MEDS: CALCIUM POLYCARBOPHIL 625 MG TABLET PO SCH (19:38)
--- NOTE | 2018-05-27 20:33 | PDOC ---
Exam Note: Aidan Note: Please also refer to the separate dictated note~for this date of service dictated separately.~Patient seen individually. Discussed the patient with Nursing staff reviewed the chart.~Reviewed interim history and current functioning. Reviewed vital signs,~Labs/ Radiology~and current medications noted below. Continue current treatment with the changes noted in the dictated addendum note Assessment: Vital Signs: Vital Signs Date Time Temp Pulse Resp B/P (MAP) Pulse Ox O2 Delivery O2 Flow Rate FiO2 05/27/18 20:31 93 Nasal Cannula 2.0 05/27/18 16:08 98.2 93 18 125/79 (94) I&O Intake and Output 05/27/18 06:59 Intake Total 460 ml Balance 460 ml Intake Oral 460 ml # Bowel Movements 1 Current Medications: Meds: Current Medications Acetaminophen (Tylenol) 650 mg PRN Q6HRS PRN PO PAIN / TEMP; Start 05/11/18 at 04:15; Stop 05/11/18 at 07:18; Status DC Multi-Ingredient Ointment (Analgesic [place]) 1 shweta PRN QID PRN TP MUSCLE PAIN; Start 05/11/18 at 04:15 Al Hydroxide/Mg Hydroxide (Mylanta Plus Xs) 15 ml PRN AFTMEALHC PRN PO DYSPEPSIA Last administered on 05/23/18at 11:06; Start 05/11/18 at 04:15 Magnesium Hydroxide (Milk Of Magnesia) 2,400 mg PRN QHS PRN PO CONSTIPATION Last administered on 05/25/18at 00:10; Start 05/11/18 at 04:15 Olanzapine (ZyPREXA ZYDIS) 2.5 mg PRN Q2HR PRN PO PSYCHOSIS Last administered on 05/21/18at 12:41; Start 05/11/18 at 04:45 Memantine (Namenda) 5 mg TID PO Last administered on 05/13/18at 13:21; Start at 09:00; Stop 05/13/18 at 18:34; Status DC Acetaminophen (Tylenol) 650 mg Q4HRS PO ; Start 05/11/18 at 08:00; Stop at 08:00; Status DC Calcium Polycarbophil (Fibercon) 625 mg QHS PO Last administered on 05/27/18at 19:38; Start 05/11/18 at 21:00 Gabapentin (Neurontin) 200 mg TID PO Last administered on 05/27/18 19:39; Start 05/11/18 at 09:00 Potassium Chloride (Klor-Con) 20 meq BIDWMEALS PO Last administered on 17:29; Start 05/11/18 at 08:00 Amlodipine Besylate (Norvasc) 5 mg DAILY PO Last administered on 05/27/18 08: 19; Start 05/11/18 at 09:00 Dicyclomine HCl (Bentyl) 20 mg QID PO Last administered on 05/27/18 19:38; Start 05/11/18 at 09:00 Non-Formulary Medication (Fluticasone/ Salmeterol (Advair Hfa 115-21 Mcg Inhaler )) 1 puff BID IH ; Start 05/11/18 at 09:00; Stop 05/11/18 at 09:00; Status DC Hydrocortisone (Proctosol-Hc) 1 shweta PRN QID PRN RC RECTAL PAIN; Start 05/11/18 at 07:30 Lactobacillus Rhamnosus (Culturelle) 1 cap BID PO Last administered on 19:39; Start 05/11/18 at 09:00 Loperamide HCl (Imodium) 2 mg PRN Q4HRS PRN PO DIARRHEA; Start 05/11/18 at 07: 30 Pantoprazole Sodium (Protonix) 40 mg DAILYAC PO Last administered on 05/27/18 08:19; Start 05/11/18 at 07:30 Ondansetron HCl (Zofran Odt) 4 mg PRN Q6HRS PRN PO NAUSEA/VOMITING; Start 05/11 at 07:30 Acetaminophen (Tylenol) 650 mg PRN Q4HRS PRN PO PAIN / TEMP Last administered on 05/26/18 15:55; Start 05/11/18 at 07:30 Albuterol Sulfate (Ventolin) 2.5 mg RTQID NEB Last administered on 05/27/18 20 :31; Start 05/11/18 at 08:00 Budesonide (Pulmicort) 0.5 mg RTBID NEB Last administered on 05/27/18 20:31; Start 05/11/18 at 08:00 Trazodone HCl (Desyrel) 50 mg PRN QHS PRN PO INSOMNIA Last administered on 23:42; Start 05/11/18 at 18:00 Sertraline HCl (Zoloft) 25 mg DAILY PO Last administered on 05/20/18at 08:41; Start 05/12/18 at 09:00; Stop 05/20/18 at 19:13; Status DC Memantine (Namenda) 10 mg BID PO Last administered on 05/27/18at 19:38; Start at 21:00 Quetiapine Fumarate (SEROquel) 12.5 mg 0900,1700 PO Last administered on 17:16; Start 05/14/18 at 09:00; Stop 05/14/18 at 18:29; Status DC Quetiapine Fumarate (SEROquel) 12.5 mg 0900,1300,1700 PO Last administered on 17:19; Start 05/15/18 at 09:00; Stop 05/17/18 at 19:16; Status DC Quetiapine Fumarate (SEROquel) 12.5 mg 1300,1700 PO Last administered on 17:28; Start 05/18/18 at 13:00 Quetiapine Fumarate (SEROquel) 25 mg DAILY PO Last administered on 05/25/18at 08 :02; Start 05/18/18 at 09:00; Stop 05/25/18 at 21:14; Status DC Vitamin D (Vitamin D3) 50,000 unit WEEKLY PO Last administered on 05/27/18at 08: 21; Start 05/20/18 at 13:45 Sertraline HCl (Zoloft) 50 mg DAILY PO Last administered on 05/23/18at 08:05; Start 05/21/18 at 09:00; Stop 05/23/18 at 11:29; Status DC Acetaminophen/ Hydrocodone Bitart (Lortab 5/325) 1 tab PRN Q6HRS PRN PO PAIN Last administered on 05/23/18 05:28; Start 05/22/18 at 14:00 Sertraline HCl (Zoloft) 75 mg DAILY PO Last administered on 05/27/18at 08:19; Start 05/24/18 at 09:00 Quetiapine Fumarate (SEROquel) 12.5 mg DAILY PO Last administered on 05/27/18at 10:15; Start 05/26/18 at 09:00; Stop 05/27/18 at 19:27; Status DC Quetiapine Fumarate (SEROquel) 25 mg DAILY PO ; Start 05/28/18 at 09:00 Active Scripts Active Reported Preparation H (Hydrocortisone) 26 Gm Cream..g. 1 Applic [place] PRN QID PRN Dicyclomine Hcl 20 Mg Tablet 20 Mg PO QID Zofran (Ondansetron Hcl) 4 Mg Tablet 4 Mg PO PRN Q6HRS PRN Imodium A-D (Loperamide HCl) 2 Mg Capsule 2 Mg PO PRN Q4HRS PRN Tylenol (Acetaminophen) 325 Mg Tablet 650 Mg PO Q4HRS Fibercon (Calcium Polycarbophil) 625 Mg Tablet 625 Mg PO QHS Namenda Xr (Memantine Hcl) 21 Mg Cap.spr.24 21 Mg PO DAILY Acidophilus Lactobacillus (Lactobacillus Acidophilus) 1 Each Capsule 1 Each PO BID Omeprazole 20 Mg Capsule.dr 20 Mg PO DAILY Advair Hfa 115-21 Mcg Inhaler (Fluticasone/Salmeterol) 12 Gm Hfa.aer.ad 1 Puff IH BID Klor-Con M20 (Potassium Chloride) 20 Meq Tab.er.prt 20 Meq PO BID Gabapentin 100 Mg Capsule 200 Mg PO TID Amlodipine Besylate 5 Mg Tablet 5 Mg PO DAILY I have reviewed the current psychotropics carefully including drug interactions. Risk benefit ratio favors no change other than as noted in my dictated progress note. Diagnosis: Problems: (1) Anxiety disorder (2) Dementia in Alzheimer's disease with delusions (3) Dementia in Alzheimer's disease with depression (4) Dementia, vascular, with delusions (5) Dementia, vascular, with depression (6) Impulse control disorder RHODA ORTA MD May 27, 2018 20:33
--- NOTE | 2018-05-27 20:53 | PN ---
DATE: 05/26/2018 This is a late entry for 05/26/2018 covers elements not covered in my initial note. SUBJECTIVE: I met with the patient in the evening. The patient slept 7-3/4 hours previous evening. The patient remains confused, was repeatedly putting her right hand into her wheelchair wheel and hurting it. Nursing staff had put a large bandage there to prevent her doing it. REVIEW OF SYSTEMS: Ambulation impaired, in wheelchair. No CV, , pulmonary, eye, ENT system symptoms on review. Reliability poor. MENTAL STATUS EXAM: Oriented to herself. Insight, judgment, recent and remote memory, attention, concentration, fund of knowledge poor, consistent with her diagnosis mentioned in my initial note. PLAN: Continue current psychotropics. Check labs level in the morning of 05/27/2018. Adjust further as clinically indicated. MAN Lyla ORTA MD DR: WARREN/vanessa JOB#: [id number] / [id number]
[2018-05-28] MEDS: ALBUTEROL SULFATE 2.5 MG/3 ML NEBU. NEB SCH ×4 (04:20→21:08)
[2018-05-28 06:37] VITALS: BP 147/73
[2018-05-28] MEDS: POTASSIUM CHLORIDE 20 MEQ TABLET.ER. PO SCH ×2 (07:49→16:39)
[2018-05-28] MEDS: PANTOPRAZOLE 40 MG TABLET. PO SCH (07:49)
[2018-05-28] MEDS: MEMANTINE 10 MG TABLET. PO SCH ×2 (07:50→21:37)
[2018-05-28] MEDS: LACTOBACILLUS RHAMNOSUS GG 1 CAPSULE. PO SCH ×2 (07:50→21:37)
[2018-05-28] MEDS: GABAPENTIN 100 MG CAPSULE. PO SCH ×3 (07:50→21:37)
[2018-05-28] MEDS: DICYCLOMINE HCL 20 MG TABLET PO SCH ×4 (07:50→21:37)
[2018-05-28] MEDS: SERTRALINE 25 MG TABLET. PO SCH (07:51)
[2018-05-28] MEDS: amLODIPine BESYLATE 5 MG TABLET PO SCH (07:51)
[2018-05-28] MEDS: QUEtiapine 25 MG TABLET. PO SCH ×3 (07:53→16:40)
[2018-05-28] MEDS: BUDESONIDE 0.5 MG/2 ML NEBU NEB SCH ×2 (09:56→21:07)
[2018-05-28 18:04] VITALS: BP 131/79
--- NOTE | 2018-05-28 19:58 | PN ---
DATE: 05/27/2018 PSYCHIATRIC PROGRESS NOTE This is a late entry for 05/27/2018, covers elements not covered in my initial note. SUBJECTIVE: I met with the patient in the evening. The patient slept 6-1/4 hours previous evening. In the morning, she was complaining of generalized pain symptoms, did well at night. She is constantly anxious, picking on the dressing on her left arm. Later in the day, she was doing better. Chest x-ray negative. BUN 30. REVIEW OF SYSTEMS: Ambulation impaired, in wheelchair. No CV, , pulmonary, eye, ENT system symptoms on review. Reliability poor. MENTAL STATUS EXAM: Oriented to herself. Insight, judgment, recent and remote memory, attention, concentration, fund of knowledge poor, consistent with her diagnosis mentioned in my initial note. PLAN: Increase 0900 hours Seroquel from 12.5 mg to 25 mg. Continue rest unchanged including 12.5 mg at 1300 hours and 1700 hours, Zoloft 75 mg a day, trazodone 50 mg at bedtime p.r.n. insomnia. MAN Lyla ORTA MD DR: WARREN/vanessa JOB#: [id number] / [id number]
--- NOTE | 2018-05-28 21:04 | PDOC ---
Exam Note: Aidan Note: Please also refer to the separate dictated note~for this date of service dictated separately.~Patient seen individually. Discussed the patient with Nursing staff reviewed the chart.~Reviewed interim history and current functioning. Reviewed vital signs,~Labs/ Radiology~and current medications noted below. Continue current treatment with the changes noted in the dictated addendum note Assessment: Vital Signs: Vital Signs Date Time Temp Pulse Resp B/P (MAP) Pulse Ox O2 Delivery O2 Flow Rate FiO2 05/28/18 18:04 97.9 97 20 131/79 (96) 92 2.0 05/28/18 16:07 Nasal Cannula I&O Intake and Output 05/28/18 06:59 Intake Total 250 ml Balance 250 ml Intake Oral 250 ml Current Medications: Meds: Current Medications Acetaminophen (Tylenol) 650 mg PRN Q6HRS PRN PO PAIN / TEMP; Start 05/11/18 at 04:15; Stop 05/11/18 at 07:18; Status DC Multi-Ingredient Ointment (Analgesic [place]) 1 shweta PRN QID PRN TP MUSCLE PAIN; Start 05/11/18 at 04:15 Al Hydroxide/Mg Hydroxide (Mylanta Plus Xs) 15 ml PRN AFTMEALHC PRN PO DYSPEPSIA Last administered on 05/23/18at 11:06; Start 05/11/18 at 04:15 Magnesium Hydroxide (Milk Of Magnesia) 2,400 mg PRN QHS PRN PO CONSTIPATION Last administered on 05/25/18at 00:10; Start 05/11/18 at 04:15 Olanzapine (ZyPREXA ZYDIS) 2.5 mg PRN Q2HR PRN PO PSYCHOSIS Last administered on 05/21/18at 12:41; Start 05/11/18 at 04:45 Memantine (Namenda) 5 mg TID PO Last administered on 05/13/18at 13:21; Start at 09:00; Stop 05/13/18 at 18:34; Status DC Acetaminophen (Tylenol) 650 mg Q4HRS PO ; Start 05/11/18 at 08:00; Stop at 08:00; Status DC Calcium Polycarbophil (Fibercon) 625 mg QHS PO Last administered on 05/27/18at 19:38; Start 05/11/18 at 21:00 Gabapentin (Neurontin) 200 mg TID PO Last administered on 05/28/18 12:40; Start 05/11/18 at 09:00 Potassium Chloride (Klor-Con) 20 meq BIDWMEALS PO Last administered on 16:39; Start 05/11/18 at 08:00 Amlodipine Besylate (Norvasc) 5 mg DAILY PO Last administered on 05/28/18 07: 51; Start 05/11/18 at 09:00 Dicyclomine HCl (Bentyl) 20 mg QID PO Last administered on 05/28/18 16:39; Start 05/11/18 at 09:00 Non-Formulary Medication (Fluticasone/ Salmeterol (Advair Hfa 115-21 Mcg Inhaler )) 1 puff BID IH ; Start 05/11/18 at 09:00; Stop 05/11/18 at 09:00; Status DC Hydrocortisone (Proctosol-Hc) 1 shweta PRN QID PRN RC RECTAL PAIN; Start 05/11/18 at 07:30 Lactobacillus Rhamnosus (Culturelle) 1 cap BID PO Last administered on at 07:50; Start 05/11/18 at 09:00 Loperamide HCl (Imodium) 2 mg PRN Q4HRS PRN PO DIARRHEA; Start 05/11/18 at 07: 30 Pantoprazole Sodium (Protonix) 40 mg DAILYAC PO Last administered on 05/28/18at 07:49; Start 05/11/18 at 07:30 Ondansetron HCl (Zofran Odt) 4 mg PRN Q6HRS PRN PO NAUSEA/VOMITING; Start 05/11 at 07:30 Acetaminophen (Tylenol) 650 mg PRN Q4HRS PRN PO PAIN / TEMP Last administered on 05/26/18at 15:55; Start 05/11/18 at 07:30 Albuterol Sulfate (Ventolin) 2.5 mg RTQID NEB Last administered on 05/28/18at 16 :05; Start 05/11/18 at 08:00 Budesonide (Pulmicort) 0.5 mg RTBID NEB Last administered on 05/28/18at 09:56; Start 05/11/18 at 08:00 Trazodone HCl (Desyrel) 50 mg PRN QHS PRN PO INSOMNIA Last administered on at 23:42; Start 05/11/18 at 18:00 Sertraline HCl (Zoloft) 25 mg DAILY PO Last administered on 05/20/18at 08:41; Start 05/12/18 at 09:00; Stop 05/20/18 at 19:13; Status DC Memantine (Namenda) 10 mg BID PO Last administered on 05/28/18at 07:50; Start at 21:00 Quetiapine Fumarate (SEROquel) 12.5 mg 0900,1700 PO Last administered on at 17:16; Start 05/14/18 at 09:00; Stop 05/14/18 at 18:29; Status DC Quetiapine Fumarate (SEROquel) 12.5 mg 0900,1300,1700 PO Last administered on at 17:19; Start 05/15/18 at 09:00; Stop 05/17/18 at 19:16; Status DC Quetiapine Fumarate (SEROquel) 12.5 mg 1300,1700 PO Last administered on at 16:40; Start 05/18/18 at 13:00 Quetiapine Fumarate (SEROquel) 25 mg DAILY PO Last administered on 05/25/18at 08 :02; Start 05/18/18 at 09:00; Stop 05/25/18 at 21:14; Status DC Vitamin D (Vitamin D3) 50,000 unit WEEKLY PO Last administered on 05/27/18at 08: 21; Start 05/20/18 at 13:45 Sertraline HCl (Zoloft) 50 mg DAILY PO Last administered on 05/23/18at 08:05; Start 05/21/18 at 09:00; Stop 05/23/18 at 11:29; Status DC Acetaminophen/ Hydrocodone Bitart (Lortab 5/325) 1 tab PRN Q6HRS PRN PO PAIN Last administered on 05/23/18at 05:28; Start 05/22/18 at 14:00 Sertraline HCl (Zoloft) 75 mg DAILY PO Last administered on 05/28/18at 07:51; Start 7/13/18 at 09:00 Quetiapine Fumarate (SEROquel) 12.5 mg DAILY PO Last administered on 05/27/18at 10:15; Start 05/26/18 at 09:00; Stop 05/27/18 at 19:27; Status DC Quetiapine Fumarate (SEROquel) 25 mg DAILY PO Last administered on 05/28/18at 07 :53; Start 05/28/18 at 09:00 Active Scripts Active Reported Preparation H (Hydrocortisone) 26 Gm Cream..g. 1 Applic [place] PRN QID PRN Dicyclomine Hcl 20 Mg Tablet 20 Mg PO QID Zofran (Ondansetron Hcl) 4 Mg Tablet 4 Mg PO PRN Q6HRS PRN Imodium A-D (Loperamide HCl) 2 Mg Capsule 2 Mg PO PRN Q4HRS PRN Tylenol (Acetaminophen) 325 Mg Tablet 650 Mg PO Q4HRS Fibercon (Calcium Polycarbophil) 625 Mg Tablet 625 Mg PO QHS Namenda Xr (Memantine Hcl) 21 Mg Cap.spr.24 21 Mg PO DAILY Acidophilus Lactobacillus (Lactobacillus Acidophilus) 1 Each Capsule 1 Each PO BID Omeprazole 20 Mg Capsule.dr 20 Mg PO DAILY Advair Hfa 115-21 Mcg Inhaler (Fluticasone/Salmeterol) 12 Gm Hfa.aer.ad 1 Puff IH BID Klor-Con M20 (Potassium Chloride) 20 Meq Tab.er.prt 20 Meq PO BID Gabapentin 100 Mg Capsule 200 Mg PO TID Amlodipine Besylate 5 Mg Tablet 5 Mg PO DAILY I have reviewed the current psychotropics carefully including drug interactions. Risk benefit ratio favors no change other than as noted in my dictated progress note. Diagnosis: Problems: (1) Anxiety disorder (2) Dementia in Alzheimer's disease with delusions (3) Dementia in Alzheimer's disease with depression (4) Dementia, vascular, with delusions (5) Dementia, vascular, with depression (6) Impulse control disorder RHODA ORTA MD May 28, 2018 21:04
[2018-05-28] MEDS: CALCIUM POLYCARBOPHIL 625 MG TABLET PO SCH (21:37)
[2018-05-29 06:04] VITALS: BP 151/74
[2018-05-29] MEDS: BUDESONIDE 0.5 MG/2 ML NEBU NEB SCH ×2 (06:09→20:53)
[2018-05-29] MEDS: ALBUTEROL SULFATE 2.5 MG/3 ML NEBU. NEB SCH ×4 (06:09→20:53)
[2018-05-29] MEDS: ACETAMINOPHEN 325 MG TABLET PO PRN (06:27)
[2018-05-29] MEDS: POTASSIUM CHLORIDE 20 MEQ TABLET.ER. PO SCH ×2 (08:01→16:20)
[2018-05-29] MEDS: GABAPENTIN 100 MG CAPSULE. PO SCH ×3 (08:02→20:03)
[2018-05-29] MEDS: MEMANTINE 10 MG TABLET. PO SCH ×2 (08:02→20:03)
[2018-05-29] MEDS: SERTRALINE 25 MG TABLET. PO SCH (08:03)
[2018-05-29] MEDS: QUEtiapine 25 MG TABLET. PO SCH ×3 (08:03→16:20)
[2018-05-29] MEDS: amLODIPine BESYLATE 5 MG TABLET PO SCH (08:03)
[2018-05-29] MEDS: PANTOPRAZOLE 40 MG TABLET. PO SCH (08:03)
[2018-05-29] MEDS: DICYCLOMINE HCL 20 MG TABLET PO SCH ×4 (08:03→20:03)
[2018-05-29] MEDS: LACTOBACILLUS RHAMNOSUS GG 1 CAPSULE. PO SCH ×2 (08:04→20:03)
[2018-05-29 15:57] VITALS: BP 94/67
[2018-05-29] MEDS: CALCIUM POLYCARBOPHIL 625 MG TABLET PO SCH (20:03)
--- NOTE | 2018-05-29 20:50 | PDOC ---
Exam Note: Aidan Note: Please also refer to the separate dictated note~for this date of service dictated separately.~Patient seen individually. Discussed the patient with Nursing staff reviewed the chart.~Reviewed interim history and current functioning. Reviewed vital signs,~Labs/ Radiology~and current medications noted below. Continue current treatment with the changes noted in the dictated addendum note Assessment: Vital Signs: Vital Signs Date Time Temp Pulse Resp B/P (MAP) Pulse Ox O2 Delivery O2 Flow Rate FiO2 05/29/18 15:57 97.7 100 20 94/67 (76) 94 2.0 05/29/18 15:15 Nasal Cannula I&O Intake and Output 05/29/18 06:59 Intake Total 660 ml Balance 660 ml Intake Oral 660 ml Current Medications: Meds: Current Medications Acetaminophen (Tylenol) 650 mg PRN Q6HRS PRN PO PAIN / TEMP; Start 05/11/18 at 04:15; Stop 05/11/18 at 07:18; Status DC Multi-Ingredient Ointment (Analgesic [place]) 1 shweta PRN QID PRN TP MUSCLE PAIN; Start 05/11/18 at 04:15 Al Hydroxide/Mg Hydroxide (Mylanta Plus Xs) 15 ml PRN AFTMEALHC PRN PO DYSPEPSIA Last administered on 05/23/18at 11:06; Start 05/11/18 at 04:15 Magnesium Hydroxide (Milk Of Magnesia) 2,400 mg PRN QHS PRN PO CONSTIPATION Last administered on 05/25/18at 00:10; Start 05/11/18 at 04:15 Olanzapine (ZyPREXA ZYDIS) 2.5 mg PRN Q2HR PRN PO PSYCHOSIS Last administered on 05/21/18at 12:41; Start 05/11/18 at 04:45 Memantine (Namenda) 5 mg TID PO Last administered on 05/13/18at 13:21; Start at 09:00; Stop 05/13/18 at 18:34; Status DC Acetaminophen (Tylenol) 650 mg Q4HRS PO ; Start 05/11/18 at 08:00; Stop at 08:00; Status DC Calcium Polycarbophil (Fibercon) 625 mg QHS PO Last administered on 05/29/18at 20:03; Start 05/11/18 at 21:00 Gabapentin (Neurontin) 200 mg TID PO Last administered on 05/29/18 20:03; Start 05/11/18 at 09:00 Potassium Chloride (Klor-Con) 20 meq BIDWMEALS PO Last administered on 16:20; Start 05/11/18 at 08:00 Amlodipine Besylate (Norvasc) 5 mg DAILY PO Last administered on 05/29/18 08: 03; Start 05/11/18 at 09:00 Dicyclomine HCl (Bentyl) 20 mg QID PO Last administered on 05/29/18 20:03; Start 05/11/18 at 09:00 Non-Formulary Medication (Fluticasone/ Salmeterol (Advair Hfa 115-21 Mcg Inhaler )) 1 puff BID IH ; Start 05/11/18 at 09:00; Stop 05/11/18 at 09:00; Status DC Hydrocortisone (Proctosol-Hc) 1 shweta PRN QID PRN RC RECTAL PAIN; Start 05/11/18 at 07:30 Lactobacillus Rhamnosus (Culturelle) 1 cap BID PO Last administered on 20:03; Start 05/11/18 at 09:00 Loperamide HCl (Imodium) 2 mg PRN Q4HRS PRN PO DIARRHEA; Start 05/11/18 at 07: 30 Pantoprazole Sodium (Protonix) 40 mg DAILYAC PO Last administered on 05/29/18 08:03; Start 05/11/18 at 07:30 Ondansetron HCl (Zofran Odt) 4 mg PRN Q6HRS PRN PO NAUSEA/VOMITING; Start 05/11 at 07:30 Acetaminophen (Tylenol) 650 mg PRN Q4HRS PRN PO PAIN / TEMP Last administered on 05/29/18 06:27; Start 05/11/18 at 07:30 Albuterol Sulfate (Ventolin) 2.5 mg RTQID NEB Last administered on 05/29/18 15 :15; Start 05/11/18 at 08:00 Budesonide (Pulmicort) 0.5 mg RTBID NEB Last administered on 05/29/18 06:09; Start 05/11/18 at 08:00 Trazodone HCl (Desyrel) 50 mg PRN QHS PRN PO INSOMNIA Last administered on 23:42; Start 05/11/18 at 18:00 Sertraline HCl (Zoloft) 25 mg DAILY PO Last administered on 05/20/18at 08:41; Start 05/12/18 at 09:00; Stop 05/20/18 at 19:13; Status DC Memantine (Namenda) 10 mg BID PO Last administered on 05/29/18at 20:03; Start at 21:00 Quetiapine Fumarate (SEROquel) 12.5 mg 0900,1700 PO Last administered on 17:16; Start 05/14/18 at 09:00; Stop 05/14/18 at 18:29; Status DC Quetiapine Fumarate (SEROquel) 12.5 mg 0900,1300,1700 PO Last administered on at 17:19; Start 05/15/18 at 09:00; Stop 05/17/18 at 19:16; Status DC Quetiapine Fumarate (SEROquel) 12.5 mg 1300,1700 PO Last administered on at 16:20; Start 05/18/18 at 13:00 Quetiapine Fumarate (SEROquel) 25 mg DAILY PO Last administered on 05/25/18at 08 :02; Start 05/18/18 at 09:00; Stop 05/25/18 at 21:14; Status DC Vitamin D (Vitamin D3) 50,000 unit WEEKLY PO Last administered on 05/27/18at 08: 21; Start 05/20/18 at 13:45 Sertraline HCl (Zoloft) 50 mg DAILY PO Last administered on 05/23/18at 08:05; Start 05/21/18 at 09:00; Stop 05/23/18 at 11:29; Status DC Acetaminophen/ Hydrocodone Bitart (Lortab 5/325) 1 tab PRN Q6HRS PRN PO PAIN Last administered on 05/23/18 05:28; Start 05/22/18 at 14:00 Sertraline HCl (Zoloft) 75 mg DAILY PO Last administered on 05/29/18at 08:03; Start 7/13/18 at 09:00 Quetiapine Fumarate (SEROquel) 12.5 mg DAILY PO Last administered on 05/27/18at 10:15; Start 05/26/18 at 09:00; Stop 05/27/18 at 19:27; Status DC Quetiapine Fumarate (SEROquel) 25 mg DAILY PO Last administered on 05/29/18at 08 :03; Start 05/28/18 at 09:00 Active Scripts Active Reported Preparation H (Hydrocortisone) 26 Gm Cream..g. 1 Applic [place] PRN QID PRN Dicyclomine Hcl 20 Mg Tablet 20 Mg PO QID Zofran (Ondansetron Hcl) 4 Mg Tablet 4 Mg PO PRN Q6HRS PRN Imodium A-D (Loperamide HCl) 2 Mg Capsule 2 Mg PO PRN Q4HRS PRN Tylenol (Acetaminophen) 325 Mg Tablet 650 Mg PO Q4HRS Fibercon (Calcium Polycarbophil) 625 Mg Tablet 625 Mg PO QHS Namenda Xr (Memantine Hcl) 21 Mg Cap.spr.24 21 Mg PO DAILY Acidophilus Lactobacillus (Lactobacillus Acidophilus) 1 Each Capsule 1 Each PO BID Omeprazole 20 Mg Capsule.dr 20 Mg PO DAILY Advair Hfa 115-21 Mcg Inhaler (Fluticasone/Salmeterol) 12 Gm Hfa.aer.ad 1 Puff IH BID Klor-Con M20 (Potassium Chloride) 20 Meq Tab.er.prt 20 Meq PO BID Gabapentin 100 Mg Capsule 200 Mg PO TID Amlodipine Besylate 5 Mg Tablet 5 Mg PO DAILY I have reviewed the current psychotropics carefully including drug interactions. Risk benefit ratio favors no change other than as noted in my dictated progress note. Diagnosis: Problems: (1) Anxiety disorder (2) Dementia in Alzheimer's disease with delusions (3) Dementia in Alzheimer's disease with depression (4) Dementia, vascular, with delusions (5) Dementia, vascular, with depression (6) Impulse control disorder RHODA ORTA MD May 29, 2018 20:50
--- NOTE | 2018-05-29 22:27 | PN ---
DATE: 05/28/2018 PSYCHIATRIC PROGRESS NOTE This is a late entry 05/28/2018, covers elements not covered in my initial note. SUBJECTIVE: I met with the patient in the evening. The patient slept 6-1/2 hours previous evening, quite pleasant, less anxious, compliant with medications. REVIEW OF SYSTEMS: Ambulation impaired, in wheelchair. No CV, , pulmonary, eye, ENT system symptoms on review. She has vague somatic symptoms. MENTAL STATUS EXAM: Oriented to herself. Insight, judgment, recent and remote memory, attention, concentration, fund of knowledge poor, consistent with her diagnoses mentioned in my initial note. PLAN: Continue psychotropics from initial note. Adjust as clinically indicated. RHODA ORTA MD DR: WARREN/vanessa JOB#: [id number] / [id number]
[2018-05-30] MEDS: traZODone 50 MG TABLET. PO PRN (01:06)
[2018-05-30] MEDS ORDERED: ALBU1.25 NEB (03:45)
[2018-05-30] MEDS ORDERED: METH29OI TP (03:46)
[2018-05-30] MEDS ORDERED: HYDR-2758 PO (03:48)
[2018-05-30] MEDS ORDERED: SERT50TA PO (03:50)
[2018-05-30] MEDS ORDERED: OLAN5TAB5 PO (03:53)
[2018-05-30] MEDS ORDERED: QUET25TA5 PO ×2 (03:55→03:56)
[2018-05-30] MEDS ORDERED: MEMA10TA PO (03:58)
[2018-05-30] MEDS ORDERED: ALBUTEROL SULFATE 2.5 MG/3 ML NEBU. NEB ONE (04:00)
[2018-05-30] MEDS ORDERED: BUDE0.5A3 NEB (04:00)
[2018-05-30] MEDS ORDERED: MAG30ORA PO (04:02)
[2018-05-30] MEDS ORDERED: PANT40TA5 PO (04:04)
[2018-05-30] MEDS ORDERED: CHOL500021 PO (04:05)
[2018-05-30] MEDS ORDERED: TRAZ-85 PO (04:06)
[2018-05-30 05:44] VITALS: BP 133/93
[2018-05-30] MEDS: BUDESONIDE 0.5 MG/2 ML NEBU NEB SCH (06:04)
[2018-05-30] MEDS: ALBUTEROL SULFATE 2.5 MG/3 ML NEBU. NEB SCH ×2 (06:04→10:39)
[2018-05-30] MEDS ORDERED: MAGN2400 PO (07:45)
[2018-05-30] MEDS: MEMANTINE 10 MG TABLET. PO SCH (08:38)
[2018-05-30] MEDS: SERTRALINE 25 MG TABLET. PO SCH (08:38)
[2018-05-30] MEDS: POTASSIUM CHLORIDE 20 MEQ TABLET.ER. PO SCH ×2 (08:38→08:41)
[2018-05-30] MEDS: DICYCLOMINE HCL 20 MG TABLET PO SCH (08:38)
[2018-05-30] MEDS: LACTOBACILLUS RHAMNOSUS GG 1 CAPSULE. PO SCH (08:38)
[2018-05-30] MEDS: GABAPENTIN 100 MG CAPSULE. PO SCH (08:38)
[2018-05-30 08:39] VITALS: BP 133/93
[2018-05-30] MEDS: QUEtiapine 25 MG TABLET. PO SCH (08:39)
[2018-05-30] MEDS: amLODIPine BESYLATE 5 MG TABLET PO SCH (08:39)
[2018-05-30] MEDS: PANTOPRAZOLE 40 MG TABLET. PO SCH (08:39)
[2018-05-30 10:51] LABS: BASO % 0 % (0-3); EOS # 0.1 x10^3/uL (0.0-0.7); EOS % 0 % (0-3); HEMATOCRIT 34.7 % (36.0-47.0); HEMOGLOBIN 11.4 g/dL (12.0-15.5); LYMPH # 0.4 x10^3/uL (1.0-4.8); LYMPH % 3 % (24-48); MEAN CORPUSCULAR HEMOGLOBIN 29 pg (25-35); MEAN CORPUSCULAR HGB CONC 33 g/dL (31-37); MEAN CORPUSCULAR VOLUME 89 fL (79-100); MONO # 0.7 x10^3/uL (0.0-1.1); MONO % 5 % (0-9); NEUT # 11.2 x10^3uL (1.8-7.7); NEUT % 91 % (31-73); PLATELET COUNT 258 x10^3/uL (140-400); RED CELL DISTRIBUTION WIDTH 16.4 % (11.5-14.5); WHITE BLOOD COUNT 12.3 x10^3/uL (4.0-11.0)
[2018-05-30 10:52] LABS: BGAS PH 7.4 (7.35-7.45)
[2018-05-30 11:03] LABS: ALBUMIN 3.5 g/dL (3.4-5.0); ALBUMIN/GLOBULIN RATIO 0.9 (1.0-1.7); CALCIUM 9.5 mg/dL (8.5-10.1); CREATININE 0.8 mg/dL (0.6-1.0); GFR 69.9; POTASSIUM 4.9 mmol/L (3.5-5.1); TOTAL BILIRUBIN 0.4 mg/dL (0.2-1.0); TOTAL PROTEIN 7.3 g/dL (6.4-8.2)
--- NOTE | 2018-05-30 12:17 | RAD ---
INDICATION: Short of air. TECHNIQUE: Upright portable chest radiograph was obtained. Comparison is from 3 days earlier. FINDINGS: Lungs remain hyperinflated. There is increased left basilar atelectasis and or infiltrate with new mild atelectasis and or infiltrate in the right lung base. Heart is upper limits of normal in size. Pulmonary vasculature now appears mildly cephalized. There is granulomatous disease. There is atheromatous disease in the thoracic aorta. IMPRESSION: 1. Basilar atelectasis and/ or infiltrate bilaterally, increased. 2. Borderline cardiomegaly. Mild vascular congestion now suspected. 3. Hyperinflation suggests emphysema. Electronically signed by: Jayson Noble MD (05/30/2018 12:14 PM) [facility]
--- NOTE | 2018-05-30 20:33 | PDOC ---
Exam Note: Aidan Note: Please also refer to the separate dictated note~for this date of service dictated separately.~Patient seen individually. Discussed the patient with Nursing staff reviewed the chart.~Reviewed interim history and current functioning. Reviewed vital signs,~Labs/ Radiology~and current medications noted below. Continue current treatment with the changes noted in the dictated addendum note Assessment: Vital Signs: Vital Signs Date Time Temp Pulse Resp B/P (MAP) Pulse Ox O2 Delivery O2 Flow Rate FiO2 05/30/18 10:37 93 Nasal Cannula 3.0 05/30/18 08:39 105 133/93 05/30/18 05:44 97.6 21 I&O Intake and Output 05/30/18 06:59 Intake Total 840 ml Balance 840 ml Intake Oral 840 ml # Bowel Movements 1 Labs: Laboratory Tests Test 05/30/18 10:40 05/30/18 10:44 White Blood Count 12.3 x10^3/uL (4.0-11.0) H Red Blood Count 3.90 x10^6/uL (3.50-5.40) Hemoglobin 11.4 g/dL (12.0-15.5) L Hematocrit 34.7 % (36.0-47.0) L Mean Corpuscular Volume 89 fL (79-100) Mean Corpuscular Hemoglobin 29 pg (25-35) Mean Corpuscular Hemoglobin Concent 33 g/dL (31-37) Red Cell Distribution Width 16.4 % (11.5-14.5) H Platelet Count 258 x10^3/uL (140-400) Neutrophils (%) (Auto) 91 % (31-73) H Lymphocytes (%) (Auto) 3 % (24-48) L Monocytes (%) (Auto) 5 % (0-9) Eosinophils (%) (Auto) 0 % (0-3) Basophils (%) (Auto) 0 % (0-3) Neutrophils # (Auto) 11.2 x10^3uL (1.8-7.7) H Lymphocytes # (Auto) 0.4 x10^3/uL (1.0-4.8) L Monocytes # (Auto) 0.7 x10^3/uL (0.0-1.1) Eosinophils # (Auto) 0.1 x10^3/uL (0.0-0.7) Basophils # (Auto) 0.0 x10^3/uL (0.0-0.2) Sodium Level 141 mmol/L (136-145) Potassium Level 4.9 mmol/L (3.5-5.1) Chloride Level 102 mmol/L (98-107) Carbon Dioxide Level 35 mmol/L (21-32) H Anion Gap 4 (6-14) L Blood Urea Nitrogen 31 mg/dL (7-20) H Creatinine 0.8 mg/dL (0.6-1.0) Estimated GFR (Cockcroft-Gault) 69.9 BUN/Creatinine Ratio 39 (6-20) H Glucose Level 131 mg/dL (70-99) H Calcium Level 9.5 mg/dL (8.5-10.1) Total Bilirubin 0.4 mg/dL (0.2-1.0) Aspartate Amino Transferase (AST) 25 U/L (15-37) Alanine Aminotransferase (ALT) 31 U/L (14-59) Alkaline Phosphatase 148 U/L (46-116) H XM-Pjj-N-Type Natriuretic Peptide 404 pg/mL (0-449) Total Protein 7.3 g/dL (6.4-8.2) Albumin 3.5 g/dL (3.4-5.0) Albumin/Globulin Ratio 0.9 (1.0-1.7) L Blood pH 7.40 (7.35-7.45) Blood Gas PCO2 58 mmHg (35-45) H Blood Gas PO2 55 mmHg (71-100) L Blood Gas HCO3 36 mmol/L (22-26) H Arterial Bld O2 Saturation (Calc) 88 % (92-99) L FiO2 32 % Current Medications: Meds: Current Medications Acetaminophen (Tylenol) 650 mg PRN Q6HRS PRN PO PAIN / TEMP; Start 05/11/18 at 04:15; Stop 05/11/18 at 07:18; Status DC Multi-Ingredient Ointment (Analgesic [place]) 1 jarett PRN QID PRN TP MUSCLE PAIN; Start 05/11/18 at 04:15; Stop 05/30/18 at 12:21; Status DC Al Hydroxide/Mg Hydroxide (Mylanta Plus Xs) 15 ml PRN AFTMEALHC PRN PO DYSPEPSIA Last administered on 05/23/18at 11:06; Start 05/11/18 at 04:15; Stop at 12:21; Status DC Magnesium Hydroxide (Milk Of Magnesia) 2,400 mg PRN QHS PRN PO CONSTIPATION Last administered on 05/25/18at 00:10; Start 05/11/18 at 04:15; Stop 05/30/18 at 12:21; Status DC Olanzapine (ZyPREXA ZYDIS) 2.5 mg PRN Q2HR PRN PO PSYCHOSIS Last administered on 05/21/18at 12:41; Start 05/11/18 at 04:45; Stop 05/30/18 at 12:21; Status DC Memantine (Namenda) 5 mg TID PO Last administered on 05/13/18at 13:21; Start at 09:00; Stop 05/13/18 at 18:34; Status DC Acetaminophen (Tylenol) 650 mg Q4HRS PO ; Start 05/11/18 at 08:00; Stop at 08:00; Status DC Calcium Polycarbophil (Fibercon) 625 mg QHS PO Last administered on 05/29/18at 20:03; Start 05/11/18 at 21:00; Stop 05/30/18 at 12:21; Status DC Gabapentin (Neurontin) 200 mg TID PO Last administered on 05/30/18at 08:38; Start 05/11/18 at 09:00; Stop 05/30/18 at 12:21; Status DC Potassium Chloride (Klor-Con) 20 meq BIDWMEALS PO Last administered on at 16:20; Start 05/11/18 at 08:00; Stop 05/30/18 at 12:21; Status DC Amlodipine Besylate (Norvasc) 5 mg DAILY PO Last administered on 05/30/18at 08: 39; Start 05/11/18 at 09:00; Stop 05/30/18 at 12:21; Status DC Dicyclomine HCl (Bentyl) 20 mg QID PO Last administered on 05/30/18at 08:38; Start 05/11/18 at 09:00; Stop 05/30/18 at 12:21; Status DC Non-Formulary Medication (Fluticasone/ Salmeterol (Advair Hfa 115-21 Mcg Inhaler )) 1 puff BID IH ; Start 05/11/18 at 09:00; Stop 05/11/18 at 09:00; Status DC Hydrocortisone (Proctosol-Hc) 1 jarett PRN QID PRN RC RECTAL PAIN; Start 05/11/18 at 07:30; Stop 05/30/18 at 12:21; Status DC Lactobacillus Rhamnosus (Culturelle) 1 cap BID PO Last administered on at 08:38; Start 05/11/18 at 09:00; Stop 05/30/18 at 12:21; Status DC Loperamide HCl (Imodium) 2 mg PRN Q4HRS PRN PO DIARRHEA; Start 05/11/18 at 07: 30; Stop 05/30/18 at 12:21; Status DC Pantoprazole Sodium (Protonix) 40 mg DAILYAC PO Last administered on 05/30/18at 08:39; Start 05/11/18 at 07:30; Stop 05/30/18 at 12:21; Status DC Ondansetron HCl (Zofran Odt) 4 mg PRN Q6HRS PRN PO NAUSEA/VOMITING; Start 05/11 at 07:30; Stop 05/30/18 at 12:21; Status DC Acetaminophen (Tylenol) 650 mg PRN Q4HRS PRN PO PAIN / TEMP Last administered on 05/29/18at 06:27; Start 05/11/18 at 07:30; Stop 05/30/18 at 12:21; Status DC Albuterol Sulfate (Ventolin) 2.5 mg RTQID NEB Last administered on 05/30/18at 10 :39; Start 05/11/18 at 08:00; Stop 05/30/18 at 12:21; Status DC Budesonide (Pulmicort) 0.5 mg RTBID NEB Last administered on 05/30/18at 06:04; Start 05/11/18 at 08:00; Stop 05/30/18 at 12:21; Status DC Trazodone HCl (Desyrel) 50 mg PRN QHS PRN PO INSOMNIA Last administered on 05/30at 01:06; Start 05/11/18 at 18:00; Stop 05/30/18 at 12:21; Status DC Sertraline HCl (Zoloft) 25 mg DAILY PO Last administered on 05/20/18at 08:41; Start 05/12/18 at 09:00; Stop 05/20/18 at 19:13; Status DC Memantine (Namenda) 10 mg BID PO Last administered on 05/30/18at 08:38; Start at 21:00; Stop 05/30/18 at 12:21; Status DC Quetiapine Fumarate (SEROquel) 12.5 mg 0900,1700 PO Last administered on at 17:16; Start 05/14/18 at 09:00; Stop 05/14/18 at 18:29; Status DC Quetiapine Fumarate (SEROquel) 12.5 mg 0900,1300,1700 PO Last administered on at 17:19; Start 05/15/18 at 09:00; Stop 05/17/18 at 19:16; Status DC Quetiapine Fumarate (SEROquel) 12.5 mg 1300,1700 PO Last administered on at 16:20; Start 05/18/18 at 13:00; Stop 05/30/18 at 12:21; Status DC Quetiapine Fumarate (SEROquel) 25 mg DAILY PO Last administered on 05/25/18at 08 :02; Start 05/18/18 at 09:00; Stop 05/25/18 at 21:14; Status DC Vitamin D (Vitamin D3) 50,000 unit WEEKLY PO Last administered on 05/27/18at 08: 21; Start 05/20/18 at 13:45; Stop 05/30/18 at 12:21; Status DC Sertraline HCl (Zoloft) 50 mg DAILY PO Last administered on 05/23/18at 08:05; Start 05/21/18 at 09:00; Stop 05/23/18 at 11:29; Status DC Acetaminophen/ Hydrocodone Bitart (Lortab 5/325) 1 tab PRN Q6HRS PRN PO PAIN Last administered on 05/23/18at 05:28; Start 05/22/18 at 14:00; Stop 05/30/18 at 12:21; Status DC Sertraline HCl (Zoloft) 75 mg DAILY PO Last administered on 05/30/18at 08:38; Start 05/24/18 at 09:00; Stop 05/30/18 at 12:21; Status DC Quetiapine Fumarate (SEROquel) 12.5 mg DAILY PO Last administered on 05/27/18at 10:15; Start 05/26/18 at 09:00; Stop 05/27/18 at 19:27; Status DC Quetiapine Fumarate (SEROquel) 25 mg DAILY PO Last administered on 05/30/18at 08 :39; Start 05/28/18 at 09:00; Stop 05/30/18 at 12:21; Status DC Albuterol Sulfate (Ventolin) 2.5 mg 1X ONCE NEB Last administered on at 03:31; Start 05/30/18 at 04:00; Stop 05/30/18 at 04:01; Status DC Active Scripts Active Reported Milk Of Magnesia (Magnesium Hydroxide) 2,400 Mg/10 Ml Oral.susp 2,400 Mg PO PRN QHS PRN Trazodone Hcl 50 Mg Tablet 50 Mg PO PRN QHS PRN D3-50 (Cholecalciferol (Vitamin D3)) 50,000 Unit Capsule 50,000 Unit PO WEEKLY Pantoprazole Sodium 40 Mg Tablet.dr 40 Mg PO DAILYAC Mag-Al Plus Suspension (Mag Hydrox/Al Hydrox/Simeth) 30 Ml Oral.susp 15 Ml PO PRN AFTMEALHC PRN Pulmicort (Budesonide) 0.5 Mg/2 Ml Ampul.neb 0.5 Mg NEB RTBID Namenda (Memantine Hcl) 10 Mg Tablet 10 Mg PO BID Seroquel (Quetiapine Fumarate) 25 Mg Tablet 25 Mg PO DAILY Seroquel (Quetiapine Fumarate) 25 Mg Tablet 12.5 Mg PO BID@1300,1700 Zyprexa Zydis (Olanzapine) 5 Mg Tab.rapdis 2.5 Mg PO PRN Q2HR PRN Zoloft (Sertraline Hcl) 50 Mg Tablet 75 Mg PO DAILY Hydrocodone-Apap 5-325 (Hydrocodone Bit/Acetaminophen) 1 Each Tablet 1 Tab PO PRN Q6HRS PRN Analgesic Raymond (Methyl Salicylate/Menthol) 28 Gm Oint...g. 1 Jarett TP PRN QID PRN Albuterol Sulfate Neb Soln (Albuterol Sulfate) 1.25 Mg/3 Ml Vial.neb 2.5 Mg NEB RTQID Preparation H (Hydrocortisone) 26 Gm Cream..g. 1 Applic [place] PRN QID PRN Dicyclomine Hcl 20 Mg Tablet 20 Mg PO QID Zofran (Ondansetron Hcl) 4 Mg Tablet 4 Mg PO PRN Q6HRS PRN Imodium A-D (Loperamide HCl) 2 Mg Capsule 2 Mg PO PRN Q4HRS PRN Tylenol (Acetaminophen) 325 Mg Tablet 650 Mg PO PRN Q4HRS PRN Fibercon (Calcium Polycarbophil) 625 Mg Tablet 625 Mg PO QHS Acidophilus Lactobacillus (Lactobacillus Acidophilus) 1 Each Capsule 1 Each PO BID Klor-Con M20 (Potassium Chloride) 20 Meq Tab.er.prt 20 Meq PO BIDWMEALS Gabapentin 100 Mg Capsule 200 Mg PO TID Amlodipine Besylate 5 Mg Tablet 5 Mg PO DAILY I have reviewed the current psychotropics carefully including drug interactions. Risk benefit ratio favors no change other than as noted in my dictated progress note. Diagnosis: Problems: (1) Dementia with behavioral disturbance (2) Acute respiratory failure with hypoxia (3) Anxiety disorder (4) Dementia in Alzheimer's disease with delusions (5) Dementia in Alzheimer's disease with depression (6) Dementia, vascular, with delusions (7) Dementia, vascular, with depression (8) Impulse control disorder RHODA ORTA MD May 30, 2018 20:33
--- NOTE | 2018-05-31 21:47 | DS ---
DATE OF DISCHARGE: 05/30/2018 This is a late entry 05/30/2018 covers elements not covered in my initial note. REASON FOR ADMISSION: Please refer to the admission history for details. Briefly, the patient is a 73-year-old female referred to us from [facility] by her primary care physician and psychiatrist on account of increasing agitation, making suicidal statements about slitting her wrist and wanting someone to bash her head in. She was yelling, agitated, confused with marked mood lability and psychotic symptoms. She had failed outpatient psychiatric interventions resulting in this referral. SIGNIFICANT FINDINGS AND CLINICAL COURSE: Following admission, the patient was seen daily individually by myself, followed medically per Dr. Armas/Dr. Hardy. She remained quite confused initially with marked mood lability, paranoia, being depressed and certainly very confused consistent with her diagnosis. Adjustments were made in her psychotropics and from a psychiatric standpoint she did better on a combination of Seroquel 25 mg at 0900, 12.5 at 1300 and 1700, Zoloft 75 mg a day, trazodone 50 mg at bedtime p.r.n., Namenda 10 mg b.i.d., Zyprexa p.r.n. She was tentatively planned for discharge back to long term 05/30/2018, but then her O2 saturations dropped significantly and Dr. Armas transferred her to the ICU as she had developed the pneumonia. She will be stabilized in the ICU and psychiatrically if she remains stable, she will then transfer to the long term. Prior to discharge, 05/30/2018, shortness of breath is evident on O2 supplements. REVIEW OF SYSTEMS: Ambulation impaired, in wheelchair. No CV, GI, , eye system symptoms on review. Reliability poor. MENTAL STATUS EXAM: Oriented to herself. Insight, judgment, recent and remote memory, attention, concentration, fund of knowledge poor, consistent with her diagnosis mentioned in my initial note. FINAL DIAGNOSES: Major neurocognitive disorder, Alzheimer, vascular with delusion, depression, behavioral disturbance; anxiety disorder, unspecified; impulse control disorder, unspecified; hypertension; abdominal aortic aneurysm; hemiplegia; peripheral vascular disease; chronic obstructive pulmonary disease; muscle wasting and atrophy; gastroesophageal reflux disease; wheelchair bound. DISCHARGE MEDICATIONS: Please refer to the MRAD. DISCHARGE INSTRUCTIONS: The outpatient psychiatric followup back at the long term and medical followup with Dr. Armas in the ICU. Time for discharge to management greater than 30 minutes. RHODA ORTA MD DR: WARREN/vanessa JOB#: [id number] / [id number]
--- NOTE | 2018-05-31 23:32 | PN ---
DATE: 05/29/2018 This is a late entry for 05/29/2018 and covers the elements not covered in my initial note. SUBJECTIVE: I met with the patient in the evening. The patient slept 5-1/2 hours previous evening, remains confused, but less anxious. REVIEW OF SYSTEMS: Ambulation impaired, in wheelchair, shortness of breath, on O2 supplements. No CV, , GI, eye, ENT system symptoms on review. Reliability poor. MENTAL STATUS EXAM: Oriented to herself. Insight, judgment, recent and remote memory, attention, concentration, fund of knowledge poor, consistent with her diagnosis mentioned in my initial note. PLAN: Continue psychotropics from initial note. Possible transition to senior care on 05/30/2018. MAN Lyla ORTA MD DR: WARREN/vanessa JOB#: [id number] / [id number]
== END 2018-05-30 12:21 | disposition short-term general hospital (02) | DRG 56 ==
LOC: GEROPSY 03:18
PROVIDERS: ADMIT Psychiatry & Neurology Psychiatry; ATTEND Psychiatry & Neurology Psychiatry
DX: G30.9 Alzheimer's disease, unspecified (principal); J18.9 Pneumonia, unspecified organism; J96.01 Acute respiratory failure with hypoxia; F01.51 Vascular dementia, unspecified severity, with behavioral disturbance; F02.81 Dementia in other diseases classified elsewhere, unspecified severity, with behavioral disturbance; G81.91 Hemiplegia, unspecified affecting right dominant side; J44.0 Chronic obstructive pulmonary disease with (acute) lower respiratory infection; N39.0 Urinary tract infection, site not specified; F32.9 Major depressive disorder, single episode, unspecified; F41.1 Generalized anxiety disorder; F63.9 Impulse disorder, unspecified; G14 Postpolio syndrome; I10 Essential (primary) hypertension; I71.4 Abdominal aortic aneurysm, without rupture; I73.9 Peripheral vascular disease, unspecified; G47.00 Insomnia, unspecified; K21.9 Gastro-esophageal reflux disease without esophagitis; K58.9 Irritable bowel syndrome, unspecified; Z79.899 Other long term (current) drug therapy; Z87.891 Personal history of nicotine dependence; Z90.710 Acquired absence of both cervix and uterus; Z99.3 Dependence on wheelchair; Z99.81 Dependence on supplemental oxygen; Z90.722 Acquired absence of ovaries, bilateral
CPT/HCPCS: 36415; 36600; 70450; 71045; 71101; 80053; 80061; 81001; 82306; 82607; 82803; 83036; 83540; 83550; 83735; 83880; 84436; 84443; 84480; 85025; 86592; 87086; 87186; 93005; 94640; J7613; J7626

== ENCOUNTER 2018-05-30 12:28 | Inpatient (IN) | payer MEDICARE, OTHER ==
[2018-05-30] VITALS (11 sets, daily range): BP systolic 96–151; BP diastolic 51–85
[~2018-05-30] VITALS: Ht 170.2 cm; Wt 52.7 kg
[~2018-05-30 12:28] MED LIST: ACET325T9 PO; ALBU1.25 NEB; AMLO5TAB2 PO; BUDE0.5A3 NEB; CALC625T PO; CHOL500021 PO; DICY20TA3 PO; FLUT12HF2 IH; GABA-585 PO; HYDR-2758 PO; HYDR26CR PR; LACT1CAP24 PO; LOPE2CAP88 PO; MAG30ORA PO; MAGN2400 PO; MEMA10TA PO; MEMA21CA PO; METH29OI TP; OLAN5TAB5 PO; OMEP20CA9 PO; ONDA4TAB7 PO; PANT40TA5 PO; POTA20TA4 PO; QUET25TA5 PO; SERT50TA PO; TRAZ-85 PO
[2018-05-30] MEDS ORDERED: IPRATRPIUM/ALBUTEROL 0.5/2.5MG 3 ML NEBU. NEB STA (12:55)
[2018-05-30] MEDS ORDERED: VANCOMYCIN PER PHARMACY MC PRN (13:45)
[2018-05-30] MEDS ORDERED: ALBUTEROL SULFATE 2.5 MG/3 ML NEBU. NEB PRN (13:45)
[2018-05-30] MEDS: PIPERACILLIN/TAZOBACTAM 3.375 GM in IV NORMAL SALINE 50ML 50 ML IV SCH ×2 (13:58→21:33)
[2018-05-30] MEDS: methylPREDNISolone SOD SUCC PF 40 MG/ML VIAL. IV SCH ×2 (13:58→21:33)
[2018-05-30 14:26] LABS: BILIRUBIN,URINE NEG (NEG); CLARITY,URINE HAZY; COLOR,URINE YELLOW; GLUCOSE,URINE NEG (NEG)
[2018-05-30 14:27] LABS: BACTERIA,URINE FEW /HPF (0-FEW); HYALINE CASTS, URINE FEW /HPF; NITRITE,URINE NEG (NEG); RBC,URINE RARE /HPF (0-2); SQUAMOUS EPITHELIAL CELL,UR FEW /LPF; UROBILINOGEN,URINE 1 mg/dL (0.2 mg/dL)
[2018-05-30] MEDS ORDERED: VANCOMYCIN 1.5 GM in IV NORMAL SALINE 500ML 500 ML IV ONE (16:00)
[2018-05-30] MEDS ORDERED: IPRATRPIUM/ALBUTEROL 0.5/2.5MG 3 ML NEBU. NEB SCH (16:00)
[2018-05-30] MEDS: IPRATRPIUM/ALBUTEROL 0.5/2.5MG 3 ML NEBU. NEB SCH ×2 (16:09→20:58)
[2018-05-30] MEDS ORDERED: hydrALAZINE 20 MG/ML VIAL. IV PRN (16:45)
--- NOTE | 2018-05-30 17:51 | HP ---
ADMIT DATE: 05/30/2018 HISTORY OF PRESENT ILLNESS: The patient is a 73-year-old female patient who was transferred from [facility] where she was not to be markedly hypoxic with an oxygen saturation of only 70% on 3 liters of oxygen and her lab work showed that she has leukocytosis. Her blood gases showed a pH of 7.4, pCO2 of 58, pO2 of 55, bicarbonate 36, and oxygen saturation was 88% on FiO2 of 32%. The chest x-ray showed that she has basilar atelectasis and/or infiltrate bilaterally that has increased. She has borderline cardiomegaly, mild vascular congestion, now suspected and hyperinflation suggestive of emphysema and therefore, the patient was transferred to the ICU with diagnosis of healthcare-associated pneumonia, acute hypoxic respiratory failure and COPD exacerbation. She was started on IV antibiotic in the form of vancomycin and Zosyn as well as Solu-Medrol and nebulized albuterol and Atrovent and was started on oxygen to titrate her oxygen to maintain oxygen saturation of 91-92%. PAST MEDICAL HISTORY: Significant for irritable bowel syndrome, hypertension, postpolio syndrome with right-sided hemiplegia and marked muscle wasting and atrophy. She is also known to have COPD, on oxygen. PAST SURGICAL HISTORY: Significant for plastic surgery to her right lower extremity, which was shorter because of polio. She has also had total abdominal hysterectomy and bilateral salpingo-oophorectomy. ALLERGIES: She has no known drug allergies. MEDICATIONS: She was on following medications: dicyclomine 20 mg p.o. q.i.d., albuterol sulfate 1.25 mg/3 mL by nebulizer 4 times a day, amlodipine 5 mg daily, methyl salicylate, menthol analgesic balm 1 application topically 4 times a day, hydrocodone/APAP 5/325 one tablet every 6 hours, Tylenol 650 mg p.o. every 4 hours, gabapentin 200 mg 3 times a day, sertraline 75 mg daily, trazodone 50 mg at bedtime, olanzapine 2.5 mg every 2 hours as needed, Seroquel 12.5 mg twice a day, Seroquel 25 mg p.o. daily, Namenda 10 mg twice a day, potassium chloride 20 mEq twice a day, Pulmicort 0.5 mg/2mL by nebulizer twice a day, lactobacillus acidophilus twice a day, loperamide 2 mg every 4 hours as needed, calcium polycarbophil 625 mg at bedtime, magnesium hydroxide for milk of magnesia 30 mL p.o. daily p.r.n. for constipation, ondansetron 4 mg every 6 hours, Protonix 40 mg daily, cholecalciferol (vitamin D3) 50,000 international unit once a week. FAMILY HISTORY: Unremarkable. SOCIAL HISTORY: She is , has 1 son. She quit smoking about a year ago. She smoked a pack a day. She does not drink alcohol or use any recreational drugs. REVIEW OF SYSTEMS: As per history of present illness. PHYSICAL EXAMINATION: GENERAL: On arrival to the ICU, she was clearly pale, cachectic, but no jaundice, cyanosis, or thyromegaly. No jugular venous distention. No limb edema. VITAL SIGNS: Her heart rate was 86, blood pressure 151/74, temperature was 97.9, respiratory rate was 18 and oxygen saturation was 84% on 2.5 liters, it eventually has improved to 96%. HEAD, EYES, EARS, NOSE AND THROAT: Showed normocephalic, atraumatic. NECK: Supple. HEART: Showed normal first and second heart sounds. No gallop, rub or murmur. CHEST: Shows central trachea, equally reduced expansion, reduced air entry, vesicular breath sounds. Diffuse bilateral rhonchi, few crepitation mostly posteriorly. ABDOMEN: Slightly distended, soft, nontender. NEUROLOGIC: She was awake, alert, responding appropriately. Clearly slightly tachypneic. All her cranial nerves intact. She moves upper extremities to much good extent than lower extremities. She is mostly bedbound, chair bound. LABORATORY DATA: Showed a white cell count 12,300, hemoglobin 11.4, hematocrit 34, MCV 89 and platelet count 258,000. Her serum sodium was 141, potassium 4.9, chloride 102, bicarbonate 35, anion gap of 4, BUN 31, creatinine 0.8, estimated GFR was 70 mL per minute. Her glucose was 131, calcium was 9.5. Total bilirubin, AST, ALT were normal. Alkaline phosphatase was elevated. Total protein was 7.3, albumin 3.5. Her blood gases showed a pH of 7.4, a pCO2 of 58, pO2 of 55, bicarbonate 36, and oxygen saturation was 88% on FiO2 of 32%. DIAGNOSTIC DATA: Chest x-ray showed that she has basilar atelectasis and/or infiltrate, bilaterally increased borderline cardiomegaly with mild vascular congestion, now suspected hyperinflation suggestive of lymphedema. ASSESSMENT AND PLAN: She was admitted with acute hypoxic hypercapnic respiratory failure, healthcare-associated pneumonia, chronic obstructive pulmonary disease exacerbation. She was started on IV antibiotic for her healthcare-associated pneumonia, Solu-Medrol and bronchodilator. We will monitor her lab work closely and decide further management accordingly. BLUE MYRICK MD DR: LUCI/vanessa JOB#: [id number] / [id number]
[2018-05-30] MEDS ORDERED: ACETAMINOPHEN 650 MG SUPP.RECT. PR PRN (18:30)
[2018-05-30] MEDS: LACTOBACILLUS RHAMNOSUS GG 1 CAPSULE. PO SCH (21:00)
[2018-05-31] VITALS (18 sets, daily range): BP systolic 99–149; BP diastolic 55–82
[2018-05-31] MEDS: PIPERACILLIN/TAZOBACTAM 3.375 GM in IV NORMAL SALINE 50ML 50 ML IV SCH ×3 (05:26→21:04)
[2018-05-31] MEDS: methylPREDNISolone SOD SUCC PF 40 MG/ML VIAL. IV SCH ×3 (05:26→21:04)
[2018-05-31] MEDS ORDERED: ACETAMINOPHEN 500 MG TABLET PO PRN (05:30)
[2018-05-31] MEDS: IPRATRPIUM/ALBUTEROL 0.5/2.5MG 3 ML NEBU. NEB SCH ×4 (05:44→20:33)
[2018-05-31 06:40] LABS: BASO % 0 % (0-3); EOS % 0 % (0-3); HEMATOCRIT 30.5 % (36.0-47.0); HEMOGLOBIN 10.2 g/dL (12.0-15.5); LYMPH # 0.3 x10^3/uL (1.0-4.8); LYMPH % 4 % (24-48); MEAN CORPUSCULAR HEMOGLOBIN 30 pg (25-35); MEAN CORPUSCULAR HGB CONC 34 g/dL (31-37); MEAN CORPUSCULAR VOLUME 89 fL (79-100); MONO # 0.3 x10^3/uL (0.0-1.1); MONO % 4 % (0-9); NEUT # 7.7 x10^3uL (1.8-7.7); NEUT % 93 % (31-73); PLATELET COUNT 198 x10^3/uL (140-400); RED BLOOD COUNT 3.44 x10^6/uL (3.50-5.40); RED CELL DISTRIBUTION WIDTH 16.6 % (11.5-14.5); WHITE BLOOD COUNT 8.3 x10^3/uL (4.0-11.0)
[2018-05-31 06:56] LABS: ALBUMIN 2.7 g/dL (3.4-5.0); ALBUMIN/GLOBULIN RATIO 0.7 (1.0-1.7); CALCIUM 8.5 mg/dL (8.5-10.1); CREATININE 0.7 mg/dL (0.6-1.0); GFR 81.6; POTASSIUM 4.1 mmol/L (3.5-5.1); TOTAL BILIRUBIN 0.5 mg/dL (0.2-1.0); TOTAL PROTEIN 6.4 g/dL (6.4-8.2)
[2018-05-31] MEDS ORDERED: ACETAMINOPHEN 325 MG TABLET PO PRN (07:45)
[2018-05-31] MEDS ORDERED: HYDROcodone/APAP 5/325MG 1 TAB TABLET PO PRN (08:15)
[2018-05-31] MEDS ORDERED: traZODone 50 MG TABLET. PO PRN (08:15)
[2018-05-31] MEDS: GABAPENTIN 100 MG CAPSULE. PO SCH ×3 (08:28→21:04)
[2018-05-31] MEDS: LACTOBACILLUS RHAMNOSUS GG 1 CAPSULE. PO SCH ×2 (08:28→21:03)
[2018-05-31] MEDS: POTASSIUM CHLORIDE 20 MEQ TABLET.ER. PO SCH ×2 (08:28→17:00)
[2018-05-31] MEDS: SERTRALINE 25 MG TABLET. PO SCH (08:29)
[2018-05-31] MEDS: amLODIPine BESYLATE 5 MG TABLET PO SCH (08:29)
[2018-05-31] MEDS: MEMANTINE 10 MG TABLET. PO SCH ×2 (09:00→21:04)
[2018-05-31] MEDS: DICYCLOMINE HCL 20 MG TABLET PO SCH ×4 (09:00→21:04)
[2018-05-31] MEDS: QUEtiapine 25 MG TABLET. PO SCH ×3 (09:00→17:00)
[2018-05-31] MEDS ORDERED: CHOLECALCIFEROL (VITAMIN D3) 50,000 UNIT CAPSULE PO SCH (09:00)
[2018-05-31] MEDS ORDERED: VANCOMYCIN 1 GM in IV NORMAL SALINE 250ML 250 ML IV SCH (16:00)
[2018-05-31] MEDS: CALCIUM POLYCARBOPHIL 625 MG TABLET PO SCH (21:03)
--- NOTE | 2018-05-31 22:08 | PN ---
DATE: 05/31/2018 SUBJECTIVE: The patient is resting slightly propped up in bed. She continued to desaturate and removes her oxygen. PHYSICAL EXAMINATION: GENERAL: However, when I saw her, she was resting slightly propped up in bed, slightly tachypneic, but pale, no jaundice, cyanosis, or thyromegaly. No jugular venous distension. No lower limb edema. VITAL SIGNS: Her heart rate was 84, blood pressure 118/62, temperature was 98.6, respiratory rate 24, and oxygen saturation was 96% on 5 liters of oxygen. HEAD, EYES, EARS, NOSE, AND THROAT: Showed normocephalic, atraumatic. NECK: Supple. HEART: Showed normal first and second sounds. No gallop, rub, or murmur. CHEST: Showed central trachea, equal bilateral expansion, air entry, vesicular breath sounds. I could not any crepitation or rhonchi. ABDOMEN: Distended, soft, nontender. NEUROLOGIC: She is awake, alert, responding appropriately. Cranial nerves intact. She moves upper extremities to much good extend than lower extremities. She is mostly bedbound, chair bound. Her intake over the last 24 hours was 680, output was 775. LABORATORY DATA: As of this morning showed a white cell count of 8300, hemoglobin 10, hematocrit 30, MCV 89, and platelet count 298,000. Her chemistry showed serum sodium 142, potassium 4.1, her chloride 105, bicarbonate 36, anion gap of 1, BUN 22, creatinine 0.7, estimated GFR was 81 mL per minute. Her glucose was 111. Calcium was 8.5. Total bilirubin, AST, ALT, alkaline phosphatase were normal. Total protein was 6.4, albumin 2.7. ASSESSMENT AND PLAN: 1. Acute hypoxic hypercapnic respiratory failure, now on 5 liters of oxygen by nasal cannula. 2. Chronic obstructive pulmonary disease exacerbation. 3. Healthcare-associated pneumonia. 4. Postpolio syndrome. She has right-sided hemiplegia with marked muscle wasting and atrophy. Plan is to continue with IV antibiotic, continue the IV steroids and bronchodilator. BLUE MYRICK MD DR: LUCI/vanessa JOB#: [id number] / [id number]
[2018-06-01] VITALS (17 sets, daily range): BP systolic 108–151; BP diastolic 60–82
[2018-06-01] MEDS: IPRATRPIUM/ALBUTEROL 0.5/2.5MG 3 ML NEBU. NEB SCH ×4 (03:50→20:12)
[2018-06-01] MEDS: methylPREDNISolone SOD SUCC PF 40 MG/ML VIAL. IV SCH ×2 (05:58→17:18)
[2018-06-01] MEDS: PIPERACILLIN/TAZOBACTAM 3.375 GM in IV NORMAL SALINE 50ML 50 ML IV SCH ×3 (05:59→21:52)
[2018-06-01] MEDS: LACTOBACILLUS RHAMNOSUS GG 1 CAPSULE. PO SCH ×2 (07:27→21:16)
[2018-06-01] MEDS: GABAPENTIN 100 MG CAPSULE. PO SCH ×3 (07:27→21:16)
[2018-06-01] MEDS: MEMANTINE 10 MG TABLET. PO SCH ×2 (07:28→21:16)
[2018-06-01] MEDS: SERTRALINE 25 MG TABLET. PO SCH (07:28)
[2018-06-01] MEDS: POTASSIUM CHLORIDE 20 MEQ TABLET.ER. PO SCH ×2 (07:28→17:17)
[2018-06-01] MEDS: PANTOPRAZOLE 40 MG TABLET. PO SCH (07:28)
[2018-06-01] MEDS: DICYCLOMINE HCL 20 MG TABLET PO SCH ×4 (07:28→21:16)
[2018-06-01] MEDS: QUEtiapine 25 MG TABLET. PO SCH ×3 (07:28→17:17)
[2018-06-01] MEDS: amLODIPine BESYLATE 5 MG TABLET PO SCH (07:29)
[2018-06-01] MEDS ORDERED: IOHEXOL 300 MG/ML 75 ML VIAL. IV ONE (12:15)
--- NOTE | 2018-06-01 13:06 | RAD ---
Examination: CT angiography chest HISTORY: History of shortness of breath, low oxygen saturation COMPARISON: None available TECHNIQUE: Axial CT angiographic images were performed with IV contrast. Coronal and sagittal 3-D MIP reformats are performed Exposure: One or more of the following individualized dose reduction techniques were utilized for this examination: 1. Automated exposure control 2. Adjustment of the mA and/or kV according to patient size 3. Use of iterative reconstruction technique FINDINGS: The central airways are patent. Diffuse coronary artery calcifications identified. The heart size grossly appears unremarkable. Moderate aortic atherosclerosis. There is no evidence of filling defect identified in the main pulmonary arterial trunk and right and left main pulmonary arteries. The evaluation of the distal lobar, segmental branches of the pulmonary artery somewhat limited on this examination. Diffuse lung emphysematous changes. Calcified granulomas identified in the left lower lobe of the lung. Mild bibasilar lung airspace opacities likely atelectasis or infiltrates. Moderate degenerative changes thoracic spine. The visualized liver, spleen, grossly appears unremarkable. IMPRESSION: 1. No evidence of central pulmonary embolism. The evaluation of the distal branches of the pulmonary arteries is limited. 2. Diffuse coronary artery calcifications. 3. Diffuse lung emphysematous changes. 4. Mild bibasilar lung airspace opacities likely atelectasis or infiltrates. Electronically signed by: Robson Bay MD (06/01/2018 1:03 PM) [facility]
--- NOTE | 2018-06-01 20:14 | PN ---
DATE: 06/01/2018 SUBJECTIVE: The patient is resting slightly propped up in her recliner. She continues to have cough that seems to be very moist and continue to saturate down to 70%. Her blood cultures are so far negative, so I discontinued her vancomycin. I will arrange for her to have a CT scan of the chest with PE protocol to rule out severity of pulmonary embolism and to have a better look at her lungs and decide on further management accordingly. PHYSICAL EXAMINATION: GENERAL: When I examined her, she was pale, cachectic, but no jaundice or cyanosis. No lymphadenopathy, no thyromegaly. No jugular venous distention. No limb edema. VITAL SIGNS: Her heart rate was 89, blood pressure was 142/74, temperature was 97.8, respiratory rate was 18 and oxygen saturation was 96% on 5 liters of oxygen. HEAD, EYES, EARS, NOSE AND THROAT: Showed normocephalic, atraumatic. NECK: Supple. HEART: Showed normal first and second sounds. No gallop or murmur. CHEST: Shows central trachea, reduced chest expansion, reduced air entry, vesicular breath sounds with crepitation both sides posteriorly. I could not appreciate any rhonchi. ABDOMEN: Scaphoid, soft, nontender. No guarding or rigidity. No organomegaly. All hernial orifices are intact. Bowel sounds are normal. NEUROLOGIC: She is awake and asleep, but arousable. All her cranial nerves intact. She moves upper extremities to much good extent than lower extremities. She is mostly bedbound and wheelchair bound. She has post-polio syndrome, actually her right lower extremity, which is effected by polio during childhood is much stronger than the left side; however, she does not stand or walk and 2-person assist. Her intake was 730, output was 775. LABORATORY DATA: No lab work done this morning, but as of yesterday, her white cell count was 8300, hemoglobin 10, hematocrit 30, MCV 89 and platelet count of 198,000. Her serum sodium 142, potassium 4.1, chloride 105, bicarbonate 36, anion gap of 1, BUN 22, creatinine 0.7, estimated GFR was 81 mL per minute. Her glucose was 111, lactic acid was 0.9, calcium was 8.5. Total bilirubin, AST, ALT, alkaline phosphatase were normal. Total protein was 6.4, albumin was 2.7. ASSESSMENT: 1. Acute hypoxic hypercapnic respiratory failure, now on 5 liters of oxygen via nasal cannula. 2. Chronic obstructive pulmonary disease exacerbation. 3. Healthcare-associated pneumonia. 4. Post-polio syndrome with ____ hemiplegia and marked muscle wasting and weakness. She is mostly wheelchair bound. PLAN: My plan is to discontinue vancomycin, but her cultures are negative after 2 days and continue with Zosyn. I will arrange for her to have a CT angio of the chest to eliminate the possibility of pulmonary embolism and we will decide the further management accordingly. Meanwhile, continue with steroids and bronchodilator. BLUE MYRICK MD DR: ULCI/vanessa JOB#: [id number] / [id number]
[2018-06-01] MEDS: CALCIUM POLYCARBOPHIL 625 MG TABLET PO SCH (21:16)
[2018-06-02 02:49] VITALS: BP 148/78
[2018-06-02] MEDS: IPRATRPIUM/ALBUTEROL 0.5/2.5MG 3 ML NEBU. NEB SCH ×4 (05:23→21:26)
[2018-06-02] MEDS: PIPERACILLIN/TAZOBACTAM 3.375 GM in IV NORMAL SALINE 50ML 50 ML IV SCH ×3 (05:50→22:16)
[2018-06-02] MEDS: methylPREDNISolone SOD SUCC PF 40 MG/ML VIAL. IV SCH ×2 (05:53→18:00)
[2018-06-02 06:21] VITALS: BP 149/72
[2018-06-02 06:44] LABS: BASO % 0 % (0-3); EOS % 0 % (0-3); HEMATOCRIT 32.6 % (36.0-47.0); HEMOGLOBIN 10.9 g/dL (12.0-15.5); LYMPH # 0.6 x10^3/uL (1.0-4.8); LYMPH % 9 % (24-48); MEAN CORPUSCULAR HEMOGLOBIN 30 pg (25-35); MEAN CORPUSCULAR HGB CONC 33 g/dL (31-37); MEAN CORPUSCULAR VOLUME 89 fL (79-100); MONO # 0.6 x10^3/uL (0.0-1.1); MONO % 8 % (0-9); NEUT # 5.8 x10^3uL (1.8-7.7); NEUT % 83 % (31-73); PLATELET COUNT 204 x10^3/uL (140-400); RED BLOOD COUNT 3.68 x10^6/uL (3.50-5.40); RED CELL DISTRIBUTION WIDTH 16.6 % (11.5-14.5)
[2018-06-02 06:57] LABS: ALBUMIN 2.7 g/dL (3.4-5.0); ALBUMIN/GLOBULIN RATIO 0.8 (1.0-1.7); CALCIUM 8.5 mg/dL (8.5-10.1); CREATININE 0.6 mg/dL (0.6-1.0); GFR 97.5; TOTAL BILIRUBIN 0.4 mg/dL (0.2-1.0); TOTAL PROTEIN 6.2 g/dL (6.4-8.2)
[2018-06-02] MEDS: amLODIPine BESYLATE 5 MG TABLET PO SCH (07:49)
[2018-06-02] MEDS: DICYCLOMINE HCL 20 MG TABLET PO SCH ×4 (07:49→20:40)
[2018-06-02] MEDS: GABAPENTIN 100 MG CAPSULE. PO SCH ×3 (07:49→20:40)
[2018-06-02] MEDS: LACTOBACILLUS RHAMNOSUS GG 1 CAPSULE. PO SCH ×2 (07:50→20:40)
[2018-06-02] MEDS: MEMANTINE 10 MG TABLET. PO SCH ×2 (07:50→20:40)
[2018-06-02] MEDS: POTASSIUM CHLORIDE 20 MEQ TABLET.ER. PO SCH ×2 (07:50→16:59)
[2018-06-02] MEDS: QUEtiapine 25 MG TABLET. PO SCH ×3 (07:50→16:59)
[2018-06-02] MEDS: PANTOPRAZOLE 40 MG TABLET. PO SCH (07:50)
[2018-06-02] MEDS: SERTRALINE 25 MG TABLET. PO SCH (07:50)
--- NOTE | 2018-06-02 09:33 | PN ---
DATE: 06/02/2018 SUBJECTIVE: The patient is resting slightly propped up in bed, sleeping comfortably in no apparent distress. Nursing staff did not voice any concern except that she has episodes of confusion. Her oxygen requirement is slightly down at 4 liters per nasal cannula. Her blood cultures are so far negative and we did discontinue her vancomycin yesterday, I cut down her steroids. OBJECTIVE: GENERAL: When I examined her, she looked pale, cachectic, no jaundice or cyanosis. No lymphadenopathy, no thyromegaly. No jugular venous distension. No limb edema. VITAL SIGNS: Her heart rate was 79, blood pressure was 149/72, temperature was 98.5, respiratory rate was 14, and oxygen saturation was 98% on 4 liters of oxygen by nasal cannula. HEAD, EYES, EARS, NOSE, AND THROAT: Showed normocephalic, atraumatic. NECK: Supple. HEART: Showed normal first and second sounds. No gallop, rub, or murmur. CHEST: Clear to auscultation. No crepitation or rhonchi. ABDOMEN: Distended, soft, nontender. NEUROLOGIC: She is sleepy, but arousable. All cranial nerves intact. She moves upper extremities to much good extent than lower extremities. She is mostly bed bound and chair bound. Her intake over the last 24 hours was 600, output was 700. LABORATORY DATA: As of this morning, her serum sodium was 144, potassium 4, chloride 106, bicarbonate 37, anion gap of 1, BUN 21, creatinine 0.6, estimated GFR was 97 mL per minute. Her glucose was 90, calcium was 8.5. Total bilirubin, AST, ALT, alkaline phosphatase were normal. Total protein 6.2, albumin 2.7. Her white cell count 7000, hemoglobin 11, hematocrit 33, MCV 89, and platelet count 204,000. ASSESSMENT: 1. Acute hypoxic hypercapnic respiratory failure, improving. She is now on 4 liters of oxygen by nasal cannula. 2. Chronic obstructive pulmonary disease exacerbation. 3. Healthcare-associated pneumonia. 4. Postpolio syndrome with a right-sided hemiplegia and marked muscle wasting and weakness. The patient is mostly wheelchair bound. Other medical problems include hypertension, irritable bowel syndrome. PLAN: Continue with IV steroids and Zosyn together with bronchodilator, probably switch her back tomorrow to oral antibiotic and decide on disposition either back to [facility] as she has not displayed any of her behaviors while here at the ICU. BLUE MYRICK MD DR: LUCI/vanessa JOB#: [id number] / [id number]
[2018-06-02 11:18] VITALS: BP 142/71
[2018-06-02 14:20] VITALS: BP 118/83
[2018-06-02 19:18] VITALS: BP 118/66
[2018-06-02] MEDS: CALCIUM POLYCARBOPHIL 625 MG TABLET PO SCH (20:40)
[2018-06-02 23:00] VITALS: BP 140/70
[2018-06-03 03:00] VITALS: BP 120/71
[2018-06-03] MEDS: IPRATRPIUM/ALBUTEROL 0.5/2.5MG 3 ML NEBU. NEB SCH ×3 (04:12→15:37)
[2018-06-03] MEDS: PIPERACILLIN/TAZOBACTAM 3.375 GM in IV NORMAL SALINE 50ML 50 ML IV SCH ×2 (06:07→14:00)
[2018-06-03] MEDS: methylPREDNISolone SOD SUCC PF 40 MG/ML VIAL. IV SCH ×2 (06:07→17:26)
[2018-06-03 06:55] LABS: BASO % 1 % (0-3); EOS % 0 % (0-3); HEMATOCRIT 34.2 % (36.0-47.0); HEMOGLOBIN 11.4 g/dL (12.0-15.5); LYMPH # 0.5 x10^3/uL (1.0-4.8); LYMPH % 7 % (24-48); MEAN CORPUSCULAR HEMOGLOBIN 29 pg (25-35); MEAN CORPUSCULAR HGB CONC 33 g/dL (31-37); MEAN CORPUSCULAR VOLUME 88 fL (79-100); MONO # 0.5 x10^3/uL (0.0-1.1); MONO % 7 % (0-9); NEUT # 6.4 x10^3uL (1.8-7.7); NEUT % 85 % (31-73); PLATELET COUNT 216 x10^3/uL (140-400); RED BLOOD COUNT 3.88 x10^6/uL (3.50-5.40); RED CELL DISTRIBUTION WIDTH 16.1 % (11.5-14.5); WHITE BLOOD COUNT 7.6 x10^3/uL (4.0-11.0)
[2018-06-03 07:02] LABS: ALBUMIN 2.7 g/dL (3.4-5.0); ALBUMIN/GLOBULIN RATIO 0.8 (1.0-1.7); CALCIUM 8.7 mg/dL (8.5-10.1); CREATININE 0.6 mg/dL (0.6-1.0); GFR 97.5; POTASSIUM 3.8 mmol/L (3.5-5.1); TOTAL BILIRUBIN 0.4 mg/dL (0.2-1.0); TOTAL PROTEIN 6.1 g/dL (6.4-8.2)
[2018-06-03] MEDS: PANTOPRAZOLE 40 MG TABLET. PO SCH (07:53)
[2018-06-03] MEDS: LACTOBACILLUS RHAMNOSUS GG 1 CAPSULE. PO SCH (07:53)
[2018-06-03] MEDS: QUEtiapine 25 MG TABLET. PO SCH ×3 (07:53→18:21)
[2018-06-03] MEDS: GABAPENTIN 100 MG CAPSULE. PO SCH ×2 (07:53→16:21)
[2018-06-03] MEDS: amLODIPine BESYLATE 5 MG TABLET PO SCH (07:54)
[2018-06-03] MEDS: DICYCLOMINE HCL 20 MG TABLET PO SCH ×3 (07:54→17:00)
[2018-06-03] MEDS: MEMANTINE 10 MG TABLET. PO SCH (07:54)
[2018-06-03] MEDS: SERTRALINE 25 MG TABLET. PO SCH (07:54)
[2018-06-03] MEDS: POTASSIUM CHLORIDE 20 MEQ TABLET.ER. PO SCH ×2 (07:54→17:00)
[2018-06-03 08:09] VITALS: BP 154/68
--- NOTE | 2018-06-03 10:22 | DS ---
DATE OF DISCHARGE: 06/03/2018 HOSPITAL COURSE: The patient is resting slightly propped up in bed, in no apparent respiratory distress, sleepy, but arousable. On questioning her, denied any complaint. The nursing staff did not voice any concerns and she had an uneventful night. OBJECTIVE: GENERAL: On examining her, she looked pale, but no jaundice, cyanosis, lymphadenopathy or thyromegaly. No jugular venous distension. No limb edema. VITAL SIGNS: Her heart rate was 90, blood pressure 154/68, temperature was 97.9, respiratory rate was 18 and oxygen saturation was 95% on 3 liters of oxygen by nasal cannula. HEAD, EYES, EARS, NOSE AND THROAT: Showed normocephalic, atraumatic. NECK: Supple. HEART: Showed normal first and second sounds. No gallop, rub or murmur. CHEST: Clear to auscultation. No crepitation or rhonchi. ABDOMEN: Distended, soft, nontender. NEUROLOGIC: She is sleepy, but arousable. Cranial nerves intact. She moves upper extremities to a much good extent than lower extremities. She is mostly bedbound, chair bound. Her intake over the last 24 hours was 800, output was 550. LABORATORY DATA: As of this morning, her serum sodium 144, potassium 3.8, chloride 107, bicarbonate 38, anion gap of 1, BUN of 24, creatinine 0.6, estimated GFR was 97 mL per minute. Her glucose was 93, calcium was 8.7. Total bilirubin, AST, ALT, alkaline phosphatase were normal. Total protein 6.1, albumin 2.7. Her white cell count was 7600, hemoglobin 11.4, hematocrit 34, MCV 88 and platelet count of 216,000. DISCHARGE MEDICATIONS: We will be discharged back to [facility] to continue on prednisone 40 mg once a day for 3 days, tapering down as per discharge summary. Protonix 40 mg once a day, calcium polycarbophil for FiberCon 625 mg once a day, Seroquel 12.5 mg twice a day, Seroquel 25 mg daily, Namenda 10 mg twice a day, dicyclomine 20 mg 4 times a day, amlodipine besylate 5 mg daily, sertraline 75 mg once a day, gabapentin 200 mg 3 times a day, vitamin D 50,000 international units once a week, trazodone 50 mg at bedtime, hydrocodone/APAP 5/325 one tablet every 6 hours, potassium chloride 20 mEq twice a day, olanzapine 2.5 mg every 2 hours as needed for agitation, Tylenol 650 mg every 4 hours as needed for pain or fever. Lactobacillus rhamnosus 1 capsule twice a day, acetaminophen, albuterol/ipratropium bromide 4 times a day, Augmentin 875 mg twice a day with meals for 5 more days. FINAL DISCHARGE DIAGNOSES: 1. Acute hypoxic hypercapnic respiratory failure, improved. She is now on 3 liters oxygen by nasal cannula, maintaining her oxygen saturation at 95%. 2. Chronic obstructive pulmonary disease exacerbation. 3. Healthcare-associated pneumonia. 4. Postpolio syndrome. 5. Right-sided hemiplegia with marked muscle wasting and weakness. She is mostly wheelchair bound. 6. Other medical problems include: A. Hypertension. B. Irritable bowel syndrome. BLUE MYRICK MD DR: LUCI/vanessa JOB#: [id number] / [id number]
[2018-06-03 11:54] VITALS: BP 146/75
[2018-06-03 15:35] VITALS: BP 132/64
== END 2018-06-03 19:45 | DRG 871 ==
LOC: ICU 12:28
PROVIDERS: ADMIT Internal Medicine; ATTEND Internal Medicine
DX: A41.9 Sepsis, unspecified organism (principal); J18.9 Pneumonia, unspecified organism; J96.01 Acute respiratory failure with hypoxia; J96.02 Acute respiratory failure with hypercapnia; G81.91 Hemiplegia, unspecified affecting right dominant side; J44.0 Chronic obstructive pulmonary disease with (acute) lower respiratory infection; J44.1 Chronic obstructive pulmonary disease with (acute) exacerbation; G14 Postpolio syndrome; I10 Essential (primary) hypertension; K58.9 Irritable bowel syndrome, unspecified; Y95 Nosocomial condition; Z87.891 Personal history of nicotine dependence; Z90.710 Acquired absence of both cervix and uterus; Z99.81 Dependence on supplemental oxygen; Z99.3 Dependence on wheelchair
CPT/HCPCS: 36415; 71275; 80053; 81001; 83605; 85025; 87040; 87641; 94640; J2543; J2920; J3370; J7040; J7050; J7613; J7620; Q9967